=== PATIENT | male | born 1940 | race Native Hawaiian/Other Pacific Islander ===

== ENCOUNTER 2016-06-18 01:49 | Inpatient (IN) | payer MEDICARE, MEDICAID ==
[~2016-06-18] VITALS: Ht 165.1 cm; Wt 48.2 kg
[2016-06-18] VITALS (43 sets, daily range): BP systolic 91–197; BP diastolic 36–82
[~2016-06-18 01:49] MED LIST: ABIR250T PO; AMIO200T2 PO; ASPI81TA2 PO; CALC1TAB91 PO; METO50TA3 PO; NIFE60TA69 PO; PRED5TAB48 PO; SEVE800T8 PO; SIMV20TA6 PO; TEMA30CA PO; VIT1TABL46 PO
[2016-06-18] MEDS ORDERED: IV SET PRIMARY PUMP SET 1 EA INFUS.SET MC ONE ×6 (01:59→12:49)
[2016-06-18] MEDS ORDERED: NTG 50 MG/D5W250 ML BOTTL 250 ML IV ONE ×2 (01:59→02:00)
[2016-06-18 02:10] LABS: BASOPHILS % (AUTO) 0.3 % (0.0-2.0); DIFF TOTAL % 100 %; EOSINOPHILS # (AUTO) 0.1 /CMM (0.0-0.7); EOSINOPHILS % (AUTO) 0.5 % (0.0-6.0); HEMATOCRIT 28 % (39-51); LYMPHOCYTES # (AUTO) 2.7 /CMM (0.8-4.8); LYMPHOCYTES % (AUTO) 16.3 % (20.0-44.0); MEAN CORPUSCULAR HEMOGLOBIN 29 PG (26.0-33.0); MEAN CORPUSCULAR HGB CONC 32 g/dl (31.0-36.0); MEAN CORPUSCULAR VOLUME 89 fL (80-96); MONOCYTES # (AUTO) 1.8 /CMM (0.1-1.30); MONOCYTES % (AUTO) 11.2 % (2.0-12.0); NEUTROPHILS # (AUTO) 11.8 /CMM (1.8-8.9); NEUTROPHILS % (AUTO) 71.7 % (43.0-81.0); PLATELET COUNT (AUTO) 332 /CMM (150-450); RED BLOOD CELL COUNT(AUTO) 3.15 MIL/uL (4.5-6.0); WHITE BLOOD COUNT (AUTO) 16.4 K/uL (4.3-11.0)
[2016-06-18] MEDS ORDERED: CLOP75TA2 PO (02:15)
[2016-06-18] MEDS ORDERED: WARF2TAB6 PO (02:15)
[2016-06-18 02:22] LABS: ANION GAP 26 (5-14); CARBON DIOXIDE 21 mmol/L (21-32); CHLORIDE 97 mmol/L (98-107); CREATININE 4.7 mg/dL (0.6-1.3); GLUCOSE 221 mg/dL (74-106); POTASSIUM 3.5 mmol/L (3.5-5.1); SODIUM SERUM 141 mmol/L (136-145); UREA NITROGEN, BLOOD 28 mg/dL (7-18)
[2016-06-18 02:29] LABS: INR 1.08 (0.87-1.13); PROTHROMBIN TIME 11.7 SECS (9.5-12.7); TROPONIN I 0.129 ng/mL (0.00-0.056)
[2016-06-18 02:34] LABS: ALANINE AMINOTRANSFERASE 13 U/L (12-78); ASPARTATE AMINOTRANSFERASE 16 U/L (15-37); BILIRUBIN,DIRECT 0.3 mg/dL (0.0-0.2); BILIRUBIN,TOTAL 0.8 mg/dL (0.2-1.0); INDIRECT BILIRUBIN 0.5 mg/dL (0.0-1.1); TOTAL PROTEIN, SERUM 7.6 g/dL (6.4-8.2)
[2016-06-18 02:35] LABS: LACTIC ACID 11.5 mmol/L (0.4-2.0)
[2016-06-18 02:40] LABS: ABG BASE EXCESS -0.2 mmol/L; ABG HCO3 24.3 mmol/L; ABG PCO2 39.1 mmHg (35.0-45.0); ABG PH 7.412 (7.350-7.450); ABG PO2 138.5 mmHg (75.0-100.0); ABG TOTAL HEMOGLOBIN 9.3 G/dL (13.5-18.0); ALLEN TEST Pass; AaDO2 535.4 mmHg; O2Hb 96.2 % (94.0-97.0)
[2016-06-18] MEDS ORDERED: CEFTRIAXONE 1 G VIAL ONE (02:58)
[2016-06-18] MEDS ORDERED: IV D5W 50 ML IV ONE (02:59)
[2016-06-18 03:00] LABS: *LACTIC ACID REFLEX FLAG YES
[2016-06-18] MEDS ORDERED: CEFTRIAXONE 1GM BAG (ER ONLY) 1 GM/50 ML PIGGYBACK IV ONE (03:00)
[2016-06-18] MEDS ORDERED: ASPIRIN 300 MG/SUPP.RECT RC ONE ×2 (03:10→03:30)
[2016-06-18] MEDS ORDERED: ONDANSETRON HCL/PF 4 MG/2 ML VIAL ONE (04:20)
[2016-06-18] MEDS ORDERED: ONDANSETRON HCL/PF 4 MG/2 ML VIAL IV PRN (04:30)
[2016-06-18] MEDS ORDERED: DOXYCYCLINE 100 MG in IV D5W 100 ML IV SCH ×2 (06:00→17:00)
[2016-06-18] MEDS ORDERED: IV NS 0.9% 1,000 ML IV PRN (06:11)
[2016-06-18] MEDS ORDERED: VANCOMYCIN 1 GM VIAL ONE (06:29)
[2016-06-18] MEDS ORDERED: IV D5W 250 ML IV ONE (06:29)
[2016-06-18] MEDS ORDERED: ACETAMINOPHEN 650 MG/SUPP.RECT RC PRN (06:30)
[2016-06-18] MEDS ORDERED: MORPHINE SULFATE INJ 2 MG/ML DISP.SYRIN IV PRN (06:30)
[2016-06-18] MEDS ORDERED: IPRATROPIUM NEB FS 0.5 MG/2.5 ML AMPUL.NEB NEB PRN (06:30)
[2016-06-18] MEDS ORDERED: Z GUARD REMEDY 2 OZ OINT TP PRN (06:30)
[2016-06-18] MEDS ORDERED: ENOXAPARIN SODIUM 40 MG/0.4 ML DISP.SYRIN SQ SCH (06:30)
[2016-06-18] MEDS ORDERED: ONDANSETRON HCL/PF 4 MG/2 ML VIAL IVP PRN (06:30)
[2016-06-18] MEDS ORDERED: VANCOMYCIN 1 GM in IV D5W 250 ML IV SCH (06:30)
[2016-06-18] MEDS ORDERED: ALBUTEROL FS 2.5 MG/3 ML VIAL.NEB NEB PRN (07:35)
[2016-06-18] MEDS ORDERED: FEE PK DOSING 1 MIN EA MC ONE (07:59)
[2016-06-18] MEDS ORDERED: VANCOMYCIN 500 MG in IV D5W 100 ML IV PRN (08:00)
[2016-06-18] MEDS ORDERED: SECONDARY IV SET 1 EA INFUS.SET MC ONE (08:06)
[2016-06-18] MEDS ORDERED: AMIODARONE HCL 200 MG TABLET PO SCH (09:00)
[2016-06-18] MEDS: PANTOPRAZOLE 40 MG VIAL IV SCH (09:14)
[2016-06-18] MEDS: MEROPENEM 500 MG in IV NS 0.9% 50 ML IV SCH ×2 (09:14→20:21)
[2016-06-18] MEDS ORDERED: CLOPIDOGREL BISULFATE 75 MG TABLET PO SCH (09:41)
[2016-06-18] MEDS ORDERED: DEXTROSE 50%-WATER 50 ML DISP.SYRIN IV PRN (10:00)
[2016-06-18] MEDS ORDERED: *INSULIN REGULAR(HUMULIN R)HUM 100 UNIT/ML VIAL SQ PRN (10:00)
[2016-06-18] MEDS: ASPIRIN 81 MG TAB.CHEW PO SCH (10:23)
[2016-06-18] MEDS: NIFEdipine XL 60 MG TAB PO SCH ×2 (10:25→17:00)
[2016-06-18] MEDS: METOPROLOL TARTRATE 50 MG TABLET PO SCH ×2 (10:33→17:00)
[2016-06-18] MEDS: VIT B CMPLX 3/FA/VIT C/BIOTIN 1 TAB TABLET PO SCH (10:33)
[2016-06-18] MEDS: predniSONE 5 MG TABLET PO SCH ×2 (10:33→17:41)
[2016-06-18] MEDS: CALCIUM CARB 600MG /VIT D 1 EACH TABLET PO SCH ×2 (10:33→17:41)
[2016-06-18] MEDS ORDERED: AMIODARONE 150 MG in IV D5W 100 ML IV ONE (11:30)
[2016-06-18] MEDS ORDERED: AMIODARONE 900 MG in IV D5W 482 ML IV PRN (11:30)
[2016-06-18] MEDS ORDERED: HEPARIN SODIUM, PORCINE 5000 UNITS/1 ML VIAL IV ONE (12:00)
[2016-06-18] MEDS: BLOOD SUGAR DIAGNOSTIC 1 EACH STRIP VI SCH ×3 (12:27→21:58)
[2016-06-18] MEDS: INSULIN REGULAR, HUMAN 100 UNIT/ML 3 ML VIAL SQ PRN ×2 (12:31→18:07)
[2016-06-18] MEDS: HEPARIN INFUSION/D5W 500 ML IV PRN (12:51)
[2016-06-18] MEDS: SEVELAMER CARBONATE 800 MG TABLET PO SCH ×2 (13:48→17:41)
[2016-06-18 15:47] LABS: ABG BASE EXCESS 5.5 mmol/L; ABG HCO3 28.6 mmol/L; ABG PCO2 35.7 mmHg (35.0-45.0); ABG PH 7.521 (7.350-7.450); ABG PO2 63.2 mmHg (75.0-100.0); ABG TOTAL HEMOGLOBIN 8.8 G/dL (13.5-18.0); ALLEN TEST Pass; AaDO2 325.3 mmHg
[2016-06-18] MEDS: ABIRATERONE ACETATE 250 MG PO SCH (16:32)
[2016-06-18] MEDS ORDERED: WARFARIN SODIUM 2 MG TABLET PO SCH (17:00)
[2016-06-18] MEDS ORDERED: GUAIFENESIN/CODEINE 10 ML UDC PO PRN (21:00)
[2016-06-18] MEDS ORDERED: GUAIFENESIN/D-METHORPHAN HB 5 ML UDC ONE (21:27)
[2016-06-18] MEDS: TEMAZEPAM 15 MG CAPSULE PO SCH (21:37)
[2016-06-18] MEDS: GUAIFENESIN/D-METHORPHAN HB 5 ML UDC PO PRN (21:38)
[2016-06-18] MEDS: SIMVASTATIN 20 MG TABLET PO SCH (21:39)
[2016-06-19] VITALS (36 sets, daily range): BP systolic 95–122; BP diastolic 37–75
[2016-06-19] MEDS: DOXYCYCLINE 100 MG in IV D5W 100 ML IV SCH ×2 (06:11→17:37)
[2016-06-19 06:37] LABS: DIFF TOTAL % 100 %; HEMATOCRIT 30 % (39-51); HEMOGLOBIN 9.9 g/dL (13.5-17.5); LYMPHOCYTES % (AUTO) 5.8 % (20.0-44.0); MEAN CORPUSCULAR HEMOGLOBIN 29 PG (26.0-33.0); MEAN CORPUSCULAR HGB CONC 33 g/dl (31.0-36.0); MEAN CORPUSCULAR VOLUME 88 fL (80-96); MONOCYTES # (AUTO) 1.1 /CMM (0.1-1.30); MONOCYTES % (AUTO) 6.5 % (2.0-12.0); NEUTROPHILS # (AUTO) 14.9 /CMM (1.8-8.9); NEUTROPHILS % (AUTO) 87.7 % (43.0-81.0); PLATELET COUNT (AUTO) 248 /CMM (150-450)
[2016-06-19 06:47] LABS: CALCIUM, SERUM 8.1 mg/dL (8.5-10.1); PHOSPHORUS 4.2 mg/dL (2.5-4.9); POTASSIUM 4.2 mmol/L (3.5-5.1)
[2016-06-19 06:59] LABS: THYROID STIMULATING HORMONE 64.513 uIU/mL (0.358-3.74)
[2016-06-19] MEDS ORDERED: HEPARIN SODIUM, PORCINE 5000 UNITS/1 ML VIAL SQ SCH (09:00)
[2016-06-19] MEDS: METOPROLOL TARTRATE 50 MG TABLET PO SCH ×2 (09:00→17:00)
[2016-06-19] MEDS: PANTOPRAZOLE 40 MG VIAL IV SCH (09:12)
[2016-06-19] MEDS: MEROPENEM 500 MG in IV NS 0.9% 50 ML IV SCH ×2 (09:13→20:33)
[2016-06-19] MEDS: SEVELAMER CARBONATE 800 MG TABLET PO SCH ×3 (09:13→16:38)
[2016-06-19] MEDS: CALCIUM CARB 600MG /VIT D 1 EACH TABLET PO SCH ×2 (09:15→16:38)
[2016-06-19] MEDS: NIFEdipine XL 60 MG TAB PO SCH ×2 (09:16→17:00)
[2016-06-19] MEDS: predniSONE 5 MG TABLET PO SCH ×2 (09:20→16:38)
[2016-06-19] MEDS: VIT B CMPLX 3/FA/VIT C/BIOTIN 1 TAB TABLET PO SCH (09:20)
[2016-06-19] MEDS: AMIODARONE HCL 200 MG TABLET PO SCH ×2 (09:20→20:34)
[2016-06-19] MEDS: BLOOD SUGAR DIAGNOSTIC 1 EACH STRIP VI SCH ×4 (09:22→21:34)
[2016-06-19] MEDS: ASPIRIN 81 MG TAB.CHEW PO SCH (09:22)
[2016-06-19] MEDS: ABIRATERONE ACETATE 250 MG PO SCH (11:15)
[2016-06-19] MEDS: INSULIN REGULAR, HUMAN 100 UNIT/ML 3 ML VIAL SQ PRN ×3 (11:42→21:43)
[2016-06-19] MEDS: HEPARIN INFUSION/D5W 500 ML IV PRN (13:26)
[2016-06-19] MEDS: GUAIFENESIN/D-METHORPHAN HB 5 ML UDC PO PRN ×2 (15:28→23:05)
[2016-06-19] MEDS ORDERED: VANCOMYCIN 1 GM in IV D5W 250 ML IV SCH (17:00)
[2016-06-19] MEDS ORDERED: SECONDARY IV SET 1 EA INFUS.SET MC ONE (17:57)
[2016-06-19] MEDS: TEMAZEPAM 15 MG CAPSULE PO SCH (23:05)
[2016-06-19] MEDS: SIMVASTATIN 20 MG TABLET PO SCH (23:08)
[2016-06-20] VITALS (37 sets, daily range): BP systolic 84–128; BP diastolic 40–61
[2016-06-20] MEDS ORDERED: IV NS 0.9% 250 ML IV ONE (04:30)
[2016-06-20 04:40] LABS: BASOPHILS % (AUTO) 0.1 % (0.0-2.0); DIFF TOTAL % 100 %; HEMATOCRIT 29 % (39-51); HEMOGLOBIN 9.4 g/dL (13.5-17.5); LYMPHOCYTES # (AUTO) 0.7 /CMM (0.8-4.8); LYMPHOCYTES % (AUTO) 5.6 % (20.0-44.0); MEAN CORPUSCULAR HEMOGLOBIN 29 PG (26.0-33.0); MEAN CORPUSCULAR HGB CONC 33 g/dl (31.0-36.0); MEAN CORPUSCULAR VOLUME 88 fL (80-96); MONOCYTES # (AUTO) 0.8 /CMM (0.1-1.30); MONOCYTES % (AUTO) 6.7 % (2.0-12.0); NEUTROPHILS # (AUTO) 10.3 /CMM (1.8-8.9); NEUTROPHILS % (AUTO) 87.6 % (43.0-81.0); PLATELET COUNT (AUTO) 314 /CMM (150-450); RED BLOOD CELL COUNT(AUTO) 3.26 MIL/uL (4.5-6.0); WHITE BLOOD COUNT (AUTO) 11.7 K/uL (4.3-11.0)
[2016-06-20 04:53] LABS: CALCIUM, SERUM 8.1 mg/dL (8.5-10.1); CREATININE 4.6 mg/dL (0.6-1.3); POTASSIUM 3.7 mmol/L (3.5-5.1)
[2016-06-20] MEDS: DOXYCYCLINE 100 MG in IV D5W 100 ML IV SCH ×2 (05:08→17:22)
[2016-06-20] MEDS: ABIRATERONE ACETATE 250 MG PO SCH (08:06)
[2016-06-20] MEDS: MEROPENEM 500 MG in IV NS 0.9% 50 ML IV SCH ×2 (08:06→20:32)
[2016-06-20] MEDS: VIT B CMPLX 3/FA/VIT C/BIOTIN 1 TAB TABLET PO SCH (08:07)
[2016-06-20] MEDS: CALCIUM CARB 600MG /VIT D 1 EACH TABLET PO SCH ×2 (08:07→16:39)
[2016-06-20] MEDS: predniSONE 5 MG TABLET PO SCH ×2 (08:07→16:39)
[2016-06-20] MEDS: PANTOPRAZOLE 40 MG VIAL IV SCH (08:07)
[2016-06-20] MEDS: NIFEdipine XL 60 MG TAB PO SCH ×2 (08:07→16:39)
[2016-06-20] MEDS: SEVELAMER CARBONATE 800 MG TABLET PO SCH ×3 (08:07→16:39)
[2016-06-20] MEDS: ASPIRIN 81 MG TAB.CHEW PO SCH (08:07)
[2016-06-20] MEDS: AMIODARONE HCL 200 MG TABLET PO SCH ×2 (08:07→20:32)
[2016-06-20] MEDS: METOPROLOL TARTRATE 50 MG TABLET PO SCH ×2 (08:07→16:39)
[2016-06-20] MEDS: BLOOD SUGAR DIAGNOSTIC 1 EACH STRIP VI SCH ×4 (08:15→22:24)
[2016-06-20] MEDS: INSULIN REGULAR, HUMAN 100 UNIT/ML 3 ML VIAL SQ PRN ×3 (08:19→18:01)
[2016-06-20] MEDS: GUAIFENESIN/D-METHORPHAN HB 5 ML UDC PO PRN ×2 (11:11→22:13)
[2016-06-20] MEDS: HEPARIN INFUSION/D5W 500 ML IV PRN (14:09)
[2016-06-20] MEDS ORDERED: SECONDARY IV SET 1 EA INFUS.SET MC ONE (16:35)
[2016-06-20] MEDS: SIMVASTATIN 20 MG TABLET PO SCH (22:14)
[2016-06-20] MEDS: TEMAZEPAM 15 MG CAPSULE PO SCH (22:14)
[2016-06-21] VITALS (31 sets, daily range): BP systolic 86–123; BP diastolic 42–61
[2016-06-21] MEDS: GUAIFENESIN/D-METHORPHAN HB 5 ML UDC PO PRN (04:01)
[2016-06-21 04:48] LABS: BASOPHILS % (AUTO) 0.1 % (0.0-2.0); DIFF TOTAL % 100 %; HEMATOCRIT 27 % (39-51); HEMOGLOBIN 8.8 g/dL (13.5-17.5); LYMPHOCYTES # (AUTO) 0.8 /CMM (0.8-4.8); LYMPHOCYTES % (AUTO) 6.9 % (20.0-44.0); MEAN CORPUSCULAR HEMOGLOBIN 28 PG (26.0-33.0); MEAN CORPUSCULAR HGB CONC 33 g/dl (31.0-36.0); MEAN CORPUSCULAR VOLUME 87 fL (80-96); MONOCYTES % (AUTO) 9.3 % (2.0-12.0); NEUTROPHILS # (AUTO) 9.4 /CMM (1.8-8.9); NEUTROPHILS % (AUTO) 83.7 % (43.0-81.0); PLATELET COUNT (AUTO) 269 /CMM (150-450); RED BLOOD CELL COUNT(AUTO) 3.08 MIL/uL (4.5-6.0); WHITE BLOOD COUNT (AUTO) 11.3 K/uL (4.3-11.0)
[2016-06-21 05:11] LABS: CALCIUM, SERUM 7.6 mg/dL (8.5-10.1); CREATININE 6.3 mg/dL (0.6-1.3); PHOSPHORUS 4.2 mg/dL (2.5-4.9); POTASSIUM 4.1 mmol/L (3.5-5.1)
[2016-06-21] MEDS: DOXYCYCLINE 100 MG in IV D5W 100 ML IV SCH ×2 (05:12→17:10)
[2016-06-21] MEDS ORDERED: IV SET PRIMARY PUMP SET 1 EA INFUS.SET MC ONE (08:11)
[2016-06-21] MEDS: PANTOPRAZOLE 40 MG VIAL IV SCH ×2 (08:47→09:53)
[2016-06-21] MEDS: BLOOD SUGAR DIAGNOSTIC 1 EACH STRIP VI SCH ×4 (08:47→21:03)
[2016-06-21] MEDS: VIT B CMPLX 3/FA/VIT C/BIOTIN 1 TAB TABLET PO SCH (09:53)
[2016-06-21] MEDS: MEROPENEM 500 MG in IV NS 0.9% 50 ML IV SCH ×2 (09:53→21:06)
[2016-06-21] MEDS: CALCIUM CARB 600MG /VIT D 1 EACH TABLET PO SCH ×2 (09:53→17:08)
[2016-06-21] MEDS: METOPROLOL TARTRATE 50 MG TABLET PO SCH ×2 (09:53→17:09)
[2016-06-21] MEDS: ASPIRIN 81 MG TAB.CHEW PO SCH (09:53)
[2016-06-21] MEDS: AMIODARONE HCL 200 MG TABLET PO SCH ×2 (09:54→21:00)
[2016-06-21] MEDS: predniSONE 5 MG TABLET PO SCH ×2 (09:54→17:08)
[2016-06-21] MEDS: SEVELAMER CARBONATE 800 MG TABLET PO SCH ×3 (09:54→17:08)
[2016-06-21] MEDS: ABIRATERONE ACETATE 250 MG PO SCH (09:56)
[2016-06-21] MEDS: NIFEdipine XL 60 MG TAB PO SCH ×2 (09:56→17:08)
[2016-06-21] MEDS ORDERED: MENTHOL/CETYLPYRD (CEPACOL) 1 LOZ LOZENGE PO PRN (12:30)
[2016-06-21] MEDS: INSULIN REGULAR, HUMAN 100 UNIT/ML 3 ML VIAL SQ PRN ×3 (12:32→21:07)
[2016-06-21] MEDS: TEMAZEPAM 15 MG CAPSULE PO SCH (21:06)
[2016-06-21] MEDS: SIMVASTATIN 20 MG TABLET PO SCH (21:06)
[2016-06-22] VITALS (11 sets, daily range): BP systolic 77–137; BP diastolic 39–65
[2016-06-22] MEDS: DOXYCYCLINE 100 MG in IV D5W 100 ML IV SCH ×2 (06:00→17:05)
[2016-06-22] MEDS: BLOOD SUGAR DIAGNOSTIC 1 EACH STRIP VI SCH ×4 (07:30→21:47)
[2016-06-22] MEDS: AMIODARONE HCL 200 MG TABLET PO SCH ×3 (09:00→12:53)
[2016-06-22] MEDS: predniSONE 5 MG TABLET PO SCH ×2 (09:00→16:51)
[2016-06-22] MEDS: MEROPENEM 500 MG in IV NS 0.9% 50 ML IV SCH (09:00)
[2016-06-22] MEDS: ASPIRIN 81 MG TAB.CHEW PO SCH ×2 (09:00→12:47)
[2016-06-22] MEDS: CALCIUM CARB 600MG /VIT D 1 EACH TABLET PO SCH ×3 (09:00→16:51)
[2016-06-22] MEDS: SEVELAMER CARBONATE 800 MG TABLET PO SCH ×3 (09:00→16:51)
[2016-06-22] MEDS: VIT B CMPLX 3/FA/VIT C/BIOTIN 1 TAB TABLET PO SCH ×2 (09:00→12:46)
[2016-06-22] MEDS: NIFEdipine XL 60 MG TAB PO SCH ×2 (09:00→12:47)
[2016-06-22] MEDS: ABIRATERONE ACETATE 250 MG PO SCH ×2 (09:00→12:46)
[2016-06-22] MEDS: METOPROLOL TARTRATE 50 MG TABLET PO SCH ×3 (09:00→16:51)
[2016-06-22] MEDS: INSULIN REGULAR, HUMAN 100 UNIT/ML 3 ML VIAL SQ PRN (12:42)
[2016-06-22 15:05] LABS: BASOPHILS % (AUTO) 0.4 % (0.0-2.0); DIFF TOTAL % 100 %; HEMATOCRIT 28 % (39-51); LYMPHOCYTES % (AUTO) 10.6 % (20.0-44.0); MEAN CORPUSCULAR HEMOGLOBIN 29 PG (26.0-33.0); MEAN CORPUSCULAR HGB CONC 32 g/dl (31.0-36.0); MEAN CORPUSCULAR VOLUME 88 fL (80-96); MONOCYTES # (AUTO) 1.1 /CMM (0.1-1.30); MONOCYTES % (AUTO) 11.7 % (2.0-12.0); NEUTROPHILS % (AUTO) 77.3 % (43.0-81.0); PLATELET COUNT (AUTO) 197 /CMM (150-450); RED BLOOD CELL COUNT(AUTO) 3.17 MIL/uL (4.5-6.0); WHITE BLOOD COUNT (AUTO) 9.1 K/uL (4.3-11.0)
[2016-06-22 15:19] LABS: CALCIUM, SERUM 7.2 mg/dL (8.5-10.1); CREATININE 5.9 mg/dL (0.6-1.3); PHOSPHORUS 4.5 mg/dL (2.5-4.9); POTASSIUM 4.1 mmol/L (3.5-5.1)
[2016-06-22] MEDS ORDERED: IV SET PRIMARY PUMP SET 1 EA INFUS.SET MC ONE ×2 (16:56→21:41)
[2016-06-22] MEDS ORDERED: MEROPENEM 500 MG in IV NS 0.9% 50 ML IV SCH (21:00)
[2016-06-22] MEDS: CARVEDILOL 6.25 MG TABLET PO SCH (21:00)
[2016-06-22] MEDS ORDERED: IV NS 0.9% 250 ML IV ONE (21:41)
[2016-06-22] MEDS ORDERED: SECONDARY IV SET 1 EA INFUS.SET MC ONE (21:41)
[2016-06-22] MEDS: SIMVASTATIN 20 MG TABLET PO SCH (21:47)
[2016-06-22] MEDS ORDERED: TEMAZEPAM 15 MG CAPSULE PO PRN (23:30)
[2016-06-23] MEDS ORDERED: TEMAZEPAM 15 MG CAPSULE PO SCH
[2016-06-23 00:40] VITALS: BP 97/49
[2016-06-23 04:00] VITALS: BP 96/46
[2016-06-23 04:11] VITALS: BP 90/55
[2016-06-23] MEDS: DOXYCYCLINE 100 MG in IV D5W 100 ML IV SCH (05:34)
[2016-06-23] MEDS: BLOOD SUGAR DIAGNOSTIC 1 EACH STRIP VI SCH ×3 (06:27→16:52)
[2016-06-23] MEDS: INSULIN REGULAR, HUMAN 100 UNIT/ML 3 ML VIAL SQ PRN ×2 (06:28→12:06)
[2016-06-23 06:47] VITALS: BP 110/49
[2016-06-23 08:00] VITALS: BP_SYST 107; BP_SYST 110; BP_DIAS 49; BP_DIAS 73
[2016-06-23] MEDS: ABIRATERONE ACETATE 250 MG PO SCH (08:25)
[2016-06-23] MEDS: SEVELAMER CARBONATE 800 MG TABLET PO SCH ×3 (08:25→18:25)
[2016-06-23] MEDS: CALCIUM CARB 600MG /VIT D 1 EACH TABLET PO SCH ×2 (08:25→18:24)
[2016-06-23] MEDS: VIT B CMPLX 3/FA/VIT C/BIOTIN 1 TAB TABLET PO SCH (08:25)
[2016-06-23] MEDS: predniSONE 5 MG TABLET PO SCH ×2 (08:25→18:24)
[2016-06-23] MEDS: PANTOPRAZOLE 40 MG VIAL IV SCH (08:26)
[2016-06-23] MEDS: ASPIRIN 81 MG TAB.CHEW PO SCH (08:26)
[2016-06-23] MEDS: AMIODARONE HCL 200 MG TABLET PO SCH (09:00)
[2016-06-23] MEDS ORDERED: LISINOPRIL (5MG) 5 MG TABLET PO SCH (09:00)
[2016-06-23] MEDS: CARVEDILOL 6.25 MG TABLET PO SCH (09:00)
[2016-06-23] MEDS ORDERED: DOXY100C41 PO (14:16)
[2016-06-23 16:00] VITALS: BP 127/66
[2016-06-23] MEDS ORDERED: DOXYCYCLINE HYCLATE (100 MG) 100 MG TABLET PO SCH (18:00)
[2016-06-23] MEDS ORDERED: CARVEDILOL 6.25 MG TABLET PO SCH (21:00)
[2016-06-24] MEDS ORDERED: LISINOPRIL (5MG) 5 MG TABLET PO SCH (09:00)
== END 2016-06-23 20:00 | disposition home or self-care (01) | DRG 871 ==
LOC: ER 01:50 → ICU 03:26 → TELE 06-21 23:50 → MED 06-23 09:58
PROVIDERS: ATTEND Family Medicine
PROC: 5A09357 Assistance with Respiratory Ventilation, Less than 24 Consecutive Hours, Continuous Positive Airway Pressure (ICD-10-PCS; principal; 2016-06-18)
PROC: 5A1D60Z (ICD-10-PCS; 2016-06-19)
DX: A41.9 Sepsis, unspecified organism (principal); J15.9 Unspecified bacterial pneumonia; I21.4 Non-ST elevation (NSTEMI) myocardial infarction; N18.6 End stage renal disease; J96.01 Acute respiratory failure with hypoxia; I50.23 Acute on chronic systolic (congestive) heart failure; I13.2 Hypertensive heart and chronic kidney disease with heart failure and with stage 5 chronic kidney disease, or end stage renal disease; E87.2 Acidosis; E44.1 Mild protein-calorie malnutrition; I16.1 Hypertensive emergency; J98.11 Atelectasis; Z99.2 Dependence on renal dialysis; E11.22 Type 2 diabetes mellitus with diabetic chronic kidney disease; I25.10 Atherosclerotic heart disease of native coronary artery without angina pectoris; E78.5 Hyperlipidemia, unspecified; N40.0 Benign prostatic hyperplasia without lower urinary tract symptoms; Z87.891 Personal history of nicotine dependence; Z95.5 Presence of coronary angioplasty implant and graft; D63.8 Anemia in other chronic diseases classified elsewhere; Z85.46 Personal history of malignant neoplasm of prostate; I07.1 Rheumatic tricuspid insufficiency; I25.2 Old myocardial infarction; I27.2 Other secondary pulmonary hypertension; I48.0 Paroxysmal atrial fibrillation; Z86.73 Personal history of transient ischemic attack (TIA), and cerebral infarction without residual deficits; Z90.79 Acquired absence of other genital organ(s)
CPT/HCPCS: 36415; 36600; 71010-TC; 80048-TC; 80061-TC; 80076-TC; 80202-TC; 82962-TC; 83605-TC; 83735-TC; 83880; 84100-TC; 84443-TC; 84484-TC; 85025-TC; 85730-TC; 87040-TC; 87081-TC; 87400; 90935-TC; 93307-TC; 94660; 94760-TC; 94799-TC; A4216; A4606; A6402; C9113; J0282; J0696; J1644; J1815; J2185; J2405; J3370; J3490; J7030; J7050; J7060; J7512; Z7610

== ENCOUNTER 2016-08-12 15:22 | Inpatient (IN) | payer MEDICARE, MEDICAID ==
[~2016-08-12] VITALS: Ht 165.1 cm; Wt 50.4 kg
[~2016-08-12 15:22] MED LIST changes: +CLOP75TA2 PO; +DOXY100C41 PO; +WARF2TAB6 PO
[2016-08-12 16:04] LABS: BASOPHILS # (AUTO) 0.1 /CMM (0.0-0.2); BASOPHILS % (AUTO) 0.7 % (0.0-2.0); EOSINOPHILS % (AUTO) 0.6 % (0.0-6.0); HEMATOCRIT 27 % (39-51); HEMOGLOBIN 8.5 g/dL (13.5-17.5); LYMPHOCYTES # (AUTO) 1.2 /CMM (0.8-4.8); LYMPHOCYTES % (AUTO) 16.3 % (20.0-44.0); MEAN CORPUSCULAR HEMOGLOBIN 29 PG (26.0-33.0); MEAN CORPUSCULAR HGB CONC 31 g/dl (31.0-36.0); MEAN CORPUSCULAR VOLUME 93 fL (80-96); MONOCYTES # (AUTO) 0.7 /CMM (0.1-1.30); MONOCYTES % (AUTO) 9.7 % (2.0-12.0); NEUTROPHILS # (AUTO) 5.4 /CMM (1.8-8.9); NEUTROPHILS % (AUTO) 72.7 % (43.0-81.0); PLATELET COUNT (AUTO) 340 /CMM (150-450); RED BLOOD CELL COUNT(AUTO) 2.92 MIL/uL (4.5-6.0); WHITE BLOOD COUNT (AUTO) 7.4 K/uL (4.3-11.0)
[2016-08-12 16:17] LABS: CALCIUM, SERUM 9.7 mg/dL (8.5-10.1); CREATININE 6.5 mg/dL (0.6-1.3); POTASSIUM 4.3 mmol/L (3.5-5.1)
[2016-08-12 16:21] LABS: INR 0.92 (0.87-1.13); PROTHROMBIN TIME 9.6 SECS (9.5-12.7)
[2016-08-12] MEDS ORDERED: PRED5TAB PO (16:22)
[2016-08-12] MEDS ORDERED: NIFE20CA PO (16:22)
[2016-08-12 16:23] LABS: ALBUMIN 3.1 g/dL (3.4-5.0); BILIRUBIN,DIRECT 0.1 mg/dL (0.0-0.2); BILIRUBIN,TOTAL 0.3 mg/dL (0.2-1.0)
[2016-08-12] MEDS ORDERED: MIRT15TA PO (16:23)
[2016-08-12] MEDS ORDERED: IV SET PRIMARY PUMP SET 1 EA INFUS.SET MC ONE (17:22)
[2016-08-12] MEDS ORDERED: PANTOPRAZOLE 80 MG in IV NS 0.9% 500 ML IV ONE (17:30)
[2016-08-12] MEDS ORDERED: PANTOPRAZOLE 40 MG VIAL ONE (17:33)
[2016-08-12 17:48] LABS: BASOPHILS % (AUTO) 0.3 % (0.0-2.0); EOSINOPHILS % (AUTO) 0.5 % (0.0-6.0); HEMATOCRIT 26 % (39-51); HEMOGLOBIN 8.3 g/dL (13.5-17.5); MEAN CORPUSCULAR HEMOGLOBIN 30 PG (26.0-33.0); MEAN CORPUSCULAR HGB CONC 32 g/dl (31.0-36.0); MEAN CORPUSCULAR VOLUME 93 fL (80-96); MONOCYTES # (AUTO) 0.7 /CMM (0.1-1.30); MONOCYTES % (AUTO) 10.2 % (2.0-12.0); NEUTROPHILS # (AUTO) 5.4 /CMM (1.8-8.9); PLATELET COUNT (AUTO) 290 /CMM (150-450); RDW COEFFICIENT OF VARIATION 16.6 (11.5-15.0); WHITE BLOOD COUNT (AUTO) 7.1 K/uL (4.3-11.0)
[2016-08-12] MEDS ORDERED: PANTOPRAZOLE 40 MG VIAL IV ONE (18:00)
[2016-08-12 20:00] VITALS: BP 138/60
[2016-08-12] MEDS ORDERED: TEMAZEPAM 15 MG CAPSULE PO PRN (20:30)
[2016-08-12] MEDS ORDERED: ZYTIGA 250 MG XX SCH (20:30)
[2016-08-12] MEDS ORDERED: BLOOD IV SET 1 EA INFUS.SET MC ONE (20:36)
[2016-08-12] MEDS ORDERED: IV NS 0.9% 250 ML IV ONE (20:36)
[2016-08-12] MEDS ORDERED: SIMVASTATIN 20 MG TABLET PO SCH (22:00)
[2016-08-12] MEDS ORDERED: MIRTAZAPINE 15 MG TABLET PO SCH (22:00)
[2016-08-13 06:35] LABS: BASOPHILS % (AUTO) 0.6 % (0.0-2.0); EOSINOPHILS # (AUTO) 0.1 /CMM (0.0-0.7); EOSINOPHILS % (AUTO) 1.7 % (0.0-6.0); HEMATOCRIT 24 % (39-51); HEMOGLOBIN 7.8 g/dL (13.5-17.5); LYMPHOCYTES # (AUTO) 1.3 /CMM (0.8-4.8); LYMPHOCYTES % (AUTO) 24.1 % (20.0-44.0); MEAN CORPUSCULAR HEMOGLOBIN 30 PG (26.0-33.0); MEAN CORPUSCULAR HGB CONC 32 g/dl (31.0-36.0); MEAN CORPUSCULAR VOLUME 93 fL (80-96); MONOCYTES # (AUTO) 0.7 /CMM (0.1-1.30); MONOCYTES % (AUTO) 13.4 % (2.0-12.0); NEUTROPHILS # (AUTO) 3.4 /CMM (1.8-8.9); NEUTROPHILS % (AUTO) 60.2 % (43.0-81.0); PLATELET COUNT (AUTO) 253 /CMM (150-450); RDW COEFFICIENT OF VARIATION 17.9 (11.5-15.0); RED BLOOD CELL COUNT(AUTO) 2.62 MIL/uL (4.5-6.0); WHITE BLOOD COUNT (AUTO) 5.6 K/uL (4.3-11.0)
[2016-08-13 06:40] LABS: CALCIUM, SERUM 8.7 mg/dL (8.5-10.1); POTASSIUM 4.1 mmol/L (3.5-5.1)
[2016-08-13 08:00] VITALS: BP 131/71
[2016-08-13] MEDS ORDERED: predniSONE 5 MG TABLET PO SCH (09:00)
[2016-08-13] MEDS ORDERED: METOPROLOL TARTRATE 50 MG TABLET PO SCH (09:00)
[2016-08-13] MEDS ORDERED: PANTOPRAZOLE 40 MG VIAL IV SCH ×2 (09:00)
[2016-08-13] MEDS ORDERED: VIT B CMPLX 3/FA/VIT C/BIOTIN 1 TAB TABLET PO SCH (09:00)
[2016-08-13] MEDS ORDERED: CALCIUM CARB 600MG /VIT D 1 EACH TABLET PO SCH (09:00)
[2016-08-13] MEDS ORDERED: NIFEdipine (10MG) 10 MG CAPSULE PO SCH (09:00)
[2016-08-13] MEDS ORDERED: ASPIRIN 81 MG TAB.CHEW PO SCH (09:00)
[2016-08-13 09:01] VITALS: BP 131/71
== END 2016-08-13 15:50 | disposition home or self-care (01) | DRG 377 ==
LOC: ER 15:29 → TELE 18:04 → MED 08-13 02:41
PROVIDERS: ADMIT Internal Medicine Nephrology; ATTEND Internal Medicine Nephrology
DX: K57.91 Diverticulosis of intestine, part unspecified, without perforation or abscess with bleeding (principal); N18.6 End stage renal disease; I13.2 Hypertensive heart and chronic kidney disease with heart failure and with stage 5 chronic kidney disease, or end stage renal disease; E11.22 Type 2 diabetes mellitus with diabetic chronic kidney disease; D64.9 Anemia, unspecified; Z98.61 Coronary angioplasty status; I25.10 Atherosclerotic heart disease of native coronary artery without angina pectoris; I25.2 Old myocardial infarction; Z99.2 Dependence on renal dialysis; Z85.46 Personal history of malignant neoplasm of prostate; K64.9 Unspecified hemorrhoids; I50.9 Heart failure, unspecified
CPT/HCPCS: 36415; 80048-TC; 80076-TC; 83690-TC; 85025-TC; 85730-TC; 86850-TC; 86921-TC; 87081-TC; A4606; C9113; J7040; J7050; J7512; Z7610

== ENCOUNTER 2016-10-15 21:11 | Inpatient (IN) | payer MEDICARE, MEDICAID ==
[~2016-10-15] VITALS: Ht 165.1 cm; Wt 52.6 kg
[~2016-10-15 21:11] MED LIST changes: -AMIO200T2 PO; -CLOP75TA2 PO; -DOXY100C41 PO; +MIRT15TA PO; +NIFE20CA PO; -NIFE60TA69 PO; +PRED5TAB PO; -PRED5TAB48 PO; -SEVE800T8 PO; -WARF2TAB6 PO
[2016-10-15] MEDS ORDERED: IV NS 0.9% 500 ML BAG IV ONE (22:30)
[2016-10-15] MEDS ORDERED: ACETAMINOPHEN 325 MG TABLET PO ONE (22:30)
[2016-10-15] MEDS ORDERED: ACETAMINOPHEN ES 500 MG TABLET ONE (22:38)
[2016-10-15] MEDS ORDERED: IV SET PRIMARY 1 EA INFUS.SET MC ONE (22:38)
[2016-10-15] MEDS ORDERED: IV NS 0.9% 500 ML IV ONE (22:38)
[2016-10-15 22:41] LABS: BASOPHILS % (AUTO) 0.2 % (0.0-2.0); EOSINOPHILS # (AUTO) 0.1 /CMM (0.0-0.7); EOSINOPHILS % (AUTO) 0.4 % (0.0-6.0); HEMATOCRIT 33 % (39-51); HEMOGLOBIN 10.8 g/dL (13.5-17.5); LYMPHOCYTES # (AUTO) 1.6 /CMM (0.8-4.8); LYMPHOCYTES % (AUTO) 11.3 % (20.0-44.0); MEAN CORPUSCULAR HEMOGLOBIN 26 PG (26.0-33.0); MEAN CORPUSCULAR HGB CONC 33 g/dl (31.0-36.0); MEAN CORPUSCULAR VOLUME 81 fL (80-96); MONOCYTES # (AUTO) 1.8 /CMM (0.1-1.30); MONOCYTES % (AUTO) 13.1 % (2.0-12.0); NEUTROPHILS # (AUTO) 10.3 /CMM (1.8-8.9); PLATELET COUNT (AUTO) 156 /CMM (150-450); RDW COEFFICIENT OF VARIATION 18.9 (11.5-15.0); WHITE BLOOD COUNT (AUTO) 13.7 K/uL (4.3-11.0)
[2016-10-15 22:53] LABS: INR 1.05 (0.87-1.13); PROTHROMBIN TIME 11.3 SECS (9.5-12.7)
[2016-10-15 22:59] LABS: TROPONIN I 0.383 ng/mL (0.00-0.056)
[2016-10-15 23:04] LABS: ALANINE AMINOTRANSFERASE 13 U/L (12-78); ALBUMIN 2.6 g/dL (3.4-5.0); ALKALINE PHOSPHATASE 36 U/L (46-116); ASPARTATE AMINOTRANSFERASE 37 U/L (15-37); BILIRUBIN,DIRECT 0.2 mg/dL (0.0-0.2); BILIRUBIN,TOTAL 0.5 mg/dL (0.2-1.0); CALCIUM, SERUM 8.4 mg/dL (8.5-10.1); CARBON DIOXIDE 24 mmol/L (21-32); CHLORIDE 97 mmol/L (98-107); GLUCOSE 97 mg/dL (74-106); POTASSIUM 5.2 mmol/L (3.5-5.1); SODIUM SERUM 136 mmol/L (136-145); TOTAL PROTEIN, SERUM 6.1 g/dL (6.4-8.2)
[2016-10-15 23:06] LABS: CREATININE 9.8 mg/dL (0.6-1.3); UREA NITROGEN, BLOOD 107 mg/dL (7-18)
[2016-10-15] MEDS ORDERED: hydrALAZINE HCL IV 20 MG VIAL ONE (23:10)
[2016-10-15] MEDS ORDERED: ASPIRIN 325 MG TABLET ONE (23:14)
[2016-10-15] MEDS ORDERED: ASPIRIN 325 MG TABLET PO ONE (23:30)
[2016-10-15] MEDS ORDERED: hydrALAZINE HCL IV 20 MG VIAL IV ONE (23:30)
[2016-10-15 23:33] LABS: B-TYPE NATRIURETIC PEPTIDE 96806 PG/ML (0-125)
[2016-10-16] VITALS (48 sets, daily range): BP systolic 106–170; BP diastolic 49–100
[2016-10-16] MEDS ORDERED: IV D5W 0 ML IV ONE
[2016-10-16] MEDS ORDERED: PIPERACILLIN /TAZOBACTAM 3.375 G in IV D5W 50 ML IV ONE ×2
[2016-10-16] MEDS ORDERED: PIPERACILLIN /TAZOBACTAM 2.25 G VIAL IV ONE
[2016-10-16] MEDS ORDERED: IV D5W 50 ML IV ONE (00:02)
[2016-10-16] MEDS ORDERED: AMIODARONE 150 MG/3 ML VIAL IV ONE ×4 (00:10→00:30)
[2016-10-16] MEDS ORDERED: IV D5W 500 ML IV ONE (00:11)
[2016-10-16] MEDS ORDERED: IV D5W 100 ML IV ONE (00:11)
[2016-10-16] MEDS ORDERED: IV SET PRIMARY PUMP SET 1 EA INFUS.SET MC ONE ×3 (00:11→10:33)
[2016-10-16] MEDS ORDERED: IV SET PRIMARY 1 EA INFUS.SET MC ONE (00:25)
[2016-10-16] MEDS ORDERED: IV NS 0.9% 1,000 ML ONE (00:25)
[2016-10-16] MEDS ORDERED: HYDROCODONE/APAP 5/325MG 1 EACH TABLET PO PRN (00:30)
[2016-10-16] MEDS ORDERED: PIPERACILLIN /TAZOBACTAM 2.25 G in IV D5W 50 ML IV ONE (00:30)
[2016-10-16] MEDS ORDERED: ONDANSETRON HCL/PF 4 MG/2 ML VIAL IVP PRN (00:30)
[2016-10-16] MEDS ORDERED: hydrALAZINE HCL IV 20 MG VIAL IV PRN (00:30)
[2016-10-16] MEDS ORDERED: ACETAMINOPHEN 325 MG TABLET PO PRN (00:30)
[2016-10-16] MEDS ORDERED: MAG HYDROX/AL HYDROX/SIMETH 30 ML UDC PO PRN (00:30)
[2016-10-16] MEDS ORDERED: IV NS 0.9% 1,000 ML BAG IV ONE (00:30)
[2016-10-16] MEDS ORDERED: MAGNESIUM HYDROXIDE 30 ML UDC PO PRN (00:30)
[2016-10-16] MEDS ORDERED: MORPHINE SULFATE INJ 2 MG/ML DISP.SYRIN IV PRN (00:30)
[2016-10-16] MEDS ORDERED: Z GUARD REMEDY 2 OZ OINT TP PRN (00:30)
[2016-10-16] MEDS ORDERED: GLIM1TAB2 PO (00:56)
[2016-10-16] MEDS ORDERED: RENVELA-SEVELAMER PO (00:56)
[2016-10-16] MEDS ORDERED: AMIODARONE 900 MG in IV D5W 482 ML IV PRN (02:00)
[2016-10-16 06:38] LABS: CALCIUM, SERUM 8.3 mg/dL (8.5-10.1); CARBON DIOXIDE 19 mmol/L (21-32); CHLORIDE 97 mmol/L (98-107); GLUCOSE 119 mg/dL (74-106); POTASSIUM 5.6 mmol/L (3.5-5.1); SODIUM SERUM 135 mmol/L (136-145)
[2016-10-16 06:41] LABS: UREA NITROGEN, BLOOD 104 mg/dL (7-18)
[2016-10-16 06:42] LABS: CREATININE 9.5 mg/dL (0.6-1.3)
[2016-10-16] MEDS ORDERED: ZYTIGA 250 MG PO SCH (07:30)
[2016-10-16] MEDS: predniSONE 5 MG TABLET PO SCH ×2 (08:42→16:06)
[2016-10-16] MEDS: PANTOPRAZOLE 40 MG TABLET.DR PO SCH (08:42)
[2016-10-16] MEDS: NIFEdipine XL (30MG) 30 MG TAB PO SCH ×2 (08:43→21:08)
[2016-10-16] MEDS ORDERED: PIPERACILLIN /TAZOBACTAM 3.375 G in IV D5W 50 ML IV SCH (09:00)
[2016-10-16] MEDS ORDERED: METOPROLOL TARTRATE 50 MG TABLET PO SCH (09:00)
[2016-10-16] MEDS: PIPERACILLIN /TAZOBACTAM 2.25 G in IV D5W 50 ML IV SCH ×3 (10:39→21:06)
[2016-10-16] MEDS ORDERED: DIGOXIN INJ 0.5 MG/2 ML AMPUL IV STA (12:30)
[2016-10-16] MEDS ORDERED: FENTANYL PF 100MCG/2ML AMPUL ONE (13:01)
[2016-10-16] MEDS ORDERED: ATRACURIUM 100MG/10 ML MDV IV ONE (13:01)
[2016-10-16] MEDS ORDERED: HYDROCORTISONE SOD SUCCINATE 100 MG/2 ML VIAL ONE (13:03)
[2016-10-16 13:15] LABS: RETICULOCYTE COUNT 0.2 % (0.6-2.5)
[2016-10-16 13:41] LABS: IRON, SERUM 34 ug/dl (50-175); TOTAL IRON BINDING CAPACITY 151 ug/dl (250-450)
[2016-10-16 14:03] LABS: THYROID STIMULATING HORMONE 26.034 uIU/mL (0.358-3.74); URIC ACID 3.2 mg/dL (2.6-7.2)
[2016-10-16] MEDS ORDERED: LABETALOL HCL IV 100MG VIAL ONE (14:49)
[2016-10-16] MEDS ORDERED: hydrALAZINE HCL IV 20 MG VIAL ONE (14:54)
[2016-10-16 16:10] LABS: FREE PSA 36.56 ng/mL (0.00-45)
[2016-10-16 16:11] LABS: PROSTATE SPECIFIC ANTIGEN SCR 152.72 ng/mL (0.00-4.00)
[2016-10-16] MEDS ORDERED: DIGOXIN INJ 0.5 MG/2 ML AMPUL IV SCH (18:00)
[2016-10-16] MEDS: METOPROLOL TARTRATE 50 MG TABLET PO SCH (21:07)
[2016-10-16] MEDS: SIMVASTATIN 20 MG TABLET PO SCH (21:07)
[2016-10-17] VITALS (26 sets, daily range): BP systolic 105–162; BP diastolic 49–80
[2016-10-17] MEDS: TEMAZEPAM 15 MG CAPSULE PO PRN ×2 (00:01→22:53)
[2016-10-17 05:29] LABS: HEMATOCRIT 31 % (39-51); HEMOGLOBIN 10.3 g/dL (13.5-17.5); LYMPHOCYTES # (AUTO) 0.3 /CMM (0.8-4.8); LYMPHOCYTES % (AUTO) 3.3 % (20.0-44.0); MEAN CORPUSCULAR HEMOGLOBIN 27 PG (26.0-33.0); MEAN CORPUSCULAR HGB CONC 33 g/dl (31.0-36.0); MEAN CORPUSCULAR VOLUME 83 fL (80-96); MONOCYTES # (AUTO) 0.6 /CMM (0.1-1.30); MONOCYTES % (AUTO) 5.7 % (2.0-12.0); NEUTROPHILS # (AUTO) 8.9 /CMM (1.8-8.9); PLATELET COUNT (AUTO) 144 /CMM (150-450); RDW COEFFICIENT OF VARIATION 19.6 (11.5-15.0); RED BLOOD CELL COUNT(AUTO) 3.78 MIL/uL (4.5-6.0); WHITE BLOOD COUNT (AUTO) 9.8 K/uL (4.3-11.0)
[2016-10-17 05:39] LABS: CALCIUM, SERUM 8.8 mg/dL (8.5-10.1); CARBON DIOXIDE 24 mmol/L (21-32); CHLORIDE 94 mmol/L (98-107); CREATININE 6.9 mg/dL (0.6-1.3); GLUCOSE 231 mg/dL (74-106); MAGNESIUM 2.3 mg/dL (1.8-2.4); POTASSIUM 5.8 mmol/L (3.5-5.1); SODIUM SERUM 132 mmol/L (136-145); UREA NITROGEN, BLOOD 62 mg/dL (7-18)
[2016-10-17] MEDS: PIPERACILLIN /TAZOBACTAM 2.25 G in IV D5W 50 ML IV SCH ×3 (06:06→21:19)
[2016-10-17 06:14] LABS: PHOSPHORUS 9.8 mg/dL (2.5-4.9)
[2016-10-17 07:44] LABS: LYMPHOCYTES % (MANUAL) 5 % (16-48); MONOCYTES % (MANUAL) 4 % (0-11.0); NEUTROPHILS % (MANUAL) 89 (42-76)
[2016-10-17] MEDS: ZYTIGA 250 MG PO SCH (07:53)
[2016-10-17] MEDS: PANTOPRAZOLE 40 MG TABLET.DR PO SCH (07:53)
[2016-10-17] MEDS: METOPROLOL TARTRATE 50 MG TABLET PO SCH ×2 (08:03→21:20)
[2016-10-17] MEDS: NIFEdipine XL (30MG) 30 MG TAB PO SCH ×2 (08:04→21:20)
[2016-10-17] MEDS: predniSONE 5 MG TABLET PO SCH ×2 (08:04→17:43)
[2016-10-17] MEDS: AMIODARONE HCL 200 MG TABLET PO SCH ×2 (11:45→21:21)
[2016-10-17] MEDS: SEVELAMER CARBONATE 800 MG TABLET PO SCH ×2 (12:56→17:43)
[2016-10-17] MEDS: SIMVASTATIN 20 MG TABLET PO SCH (21:20)
[2016-10-18] VITALS (12 sets, daily range): BP systolic 110–125; BP diastolic 43–63
[2016-10-18 05:03] LABS: HEMATOCRIT 32 % (39-51); HEMOGLOBIN 10.5 g/dL (13.5-17.5); LYMPHOCYTES # (AUTO) 0.3 /CMM (0.8-4.8); LYMPHOCYTES % (AUTO) 3.5 % (20.0-44.0); MEAN CORPUSCULAR HEMOGLOBIN 27 PG (26.0-33.0); MEAN CORPUSCULAR HGB CONC 33 g/dl (31.0-36.0); MEAN CORPUSCULAR VOLUME 82 fL (80-96); MONOCYTES # (AUTO) 0.5 /CMM (0.1-1.30); MONOCYTES % (AUTO) 5.7 % (2.0-12.0); NEUTROPHILS # (AUTO) 8.2 /CMM (1.8-8.9); NEUTROPHILS % (AUTO) 90.8 % (43.0-81.0); PLATELET COUNT (AUTO) 174 /CMM (150-450); RDW COEFFICIENT OF VARIATION 19.1 (11.5-15.0); RED BLOOD CELL COUNT(AUTO) 3.87 MIL/uL (4.5-6.0); WHITE BLOOD COUNT (AUTO) 9.1 K/uL (4.3-11.0)
[2016-10-18] MEDS: PIPERACILLIN /TAZOBACTAM 2.25 G in IV D5W 50 ML IV SCH ×3 (05:05→20:47)
[2016-10-18 05:26] LABS: ALANINE AMINOTRANSFERASE 15 U/L (12-78); ALBUMIN 2.4 g/dL (3.4-5.0); ALKALINE PHOSPHATASE 27 U/L (46-116); ASPARTATE AMINOTRANSFERASE 21 U/L (15-37); BILIRUBIN,TOTAL 0.4 mg/dL (0.2-1.0); CALCIUM, SERUM 8.8 mg/dL (8.5-10.1); CARBON DIOXIDE 31 mmol/L (21-32); CHLORIDE 98 mmol/L (98-107); CREATININE 6.1 mg/dL (0.6-1.3); GLUCOSE 182 mg/dL (74-106); MAGNESIUM 2.5 mg/dL (1.8-2.4); PHOSPHORUS 7.8 mg/dL (2.5-4.9); POTASSIUM 5.4 mmol/L (3.5-5.1); SODIUM SERUM 137 mmol/L (136-145); TOTAL PROTEIN, SERUM 6.6 g/dL (6.4-8.2); UREA NITROGEN, BLOOD 55 mg/dL (7-18)
[2016-10-18 06:02] LABS: EOSINOPHILS % (MANUAL) 1 % (0-4); LYMPHOCYTES % (MANUAL) 1 % (16-48); MONOCYTES % (MANUAL) 6 % (0-11.0); NEUTROPHILS % (MANUAL) 92 (42-76)
[2016-10-18] MEDS ORDERED: CT SWABBABLE VALVE TRANS SET 1 EA INFUS.SET MC ONE (08:42)
[2016-10-18] MEDS ORDERED: IOHEXOL-300 100 ML VIAL IV ONE (08:42)
[2016-10-18] MEDS ORDERED: IV NS 0.9% 250 ML IV ONE ×2 (08:42→13:07)
[2016-10-18] MEDS: PANTOPRAZOLE 40 MG TABLET.DR PO SCH (09:30)
[2016-10-18] MEDS: NIFEdipine XL (30MG) 30 MG TAB PO SCH ×2 (09:30→21:03)
[2016-10-18] MEDS: ZYTIGA 250 MG PO SCH (09:30)
[2016-10-18] MEDS: AMIODARONE HCL 200 MG TABLET PO SCH ×2 (09:31→21:00)
[2016-10-18] MEDS: predniSONE 5 MG TABLET PO SCH ×2 (09:32→18:03)
[2016-10-18] MEDS: METOPROLOL TARTRATE 50 MG TABLET PO SCH ×2 (09:32→21:00)
[2016-10-18] MEDS: SEVELAMER CARBONATE 800 MG TABLET PO SCH ×3 (09:32→18:03)
[2016-10-18] MEDS ORDERED: SECONDARY IV SET 1 EA INFUS.SET MC ONE (13:07)
[2016-10-18] MEDS ORDERED: IV SET PRIMARY PUMP SET 1 EA INFUS.SET MC ONE (13:07)
[2016-10-18] MEDS: SIMVASTATIN 20 MG TABLET PO SCH (21:02)
[2016-10-19] VITALS (7 sets, daily range): BP systolic 129–182; BP diastolic 40–63
[2016-10-19 03:08] LABS: CARCINOEMBRYONIC AG (CEA) 5.9 ng/mL (0.0-4.7)
[2016-10-19] MEDS: PIPERACILLIN /TAZOBACTAM 2.25 G in IV D5W 50 ML IV SCH ×3 (05:02→20:49)
[2016-10-19 06:54] LABS: BASOPHILS % (AUTO) 0.1 % (0.0-2.0); EOSINOPHILS % (AUTO) 0.1 % (0.0-6.0); HEMATOCRIT 29 % (39-51); HEMOGLOBIN 9.7 g/dL (13.5-17.5); LYMPHOCYTES # (AUTO) 0.4 /CMM (0.8-4.8); LYMPHOCYTES % (AUTO) 5.1 % (20.0-44.0); MEAN CORPUSCULAR HEMOGLOBIN 28 PG (26.0-33.0); MEAN CORPUSCULAR HGB CONC 34 g/dl (31.0-36.0); MEAN CORPUSCULAR VOLUME 82 fL (80-96); MONOCYTES # (AUTO) 0.5 /CMM (0.1-1.30); NEUTROPHILS % (AUTO) 88.7 % (43.0-81.0); PLATELET COUNT (AUTO) 165 /CMM (150-450); RDW COEFFICIENT OF VARIATION 19.1 (11.5-15.0); RED BLOOD CELL COUNT(AUTO) 3.51 MIL/uL (4.5-6.0); WHITE BLOOD COUNT (AUTO) 7.9 K/uL (4.3-11.0)
[2016-10-19 07:06] LABS: CALCIUM, SERUM 8.2 mg/dL (8.5-10.1); CARBON DIOXIDE 26 mmol/L (21-32); CHLORIDE 97 mmol/L (98-107); GLUCOSE 196 mg/dL (74-106); POTASSIUM 5.9 mmol/L (3.5-5.1); SODIUM SERUM 136 mmol/L (136-145); UREA NITROGEN, BLOOD 78 mg/dL (7-18)
[2016-10-19 07:11] LABS: INR 0.94 (0.87-1.13)
[2016-10-19] MEDS: ZYTIGA 250 MG PO SCH (07:30)
[2016-10-19] MEDS: PANTOPRAZOLE 40 MG TABLET.DR PO SCH (07:30)
[2016-10-19 07:32] LABS: CREATININE 7.5 mg/dL (0.6-1.3)
[2016-10-19] MEDS: SEVELAMER CARBONATE 800 MG TABLET PO SCH ×3 (07:51→18:58)
[2016-10-19] MEDS ORDERED: HEPARIN SODIUM, PORCINE 1,000 UNIT/ML VIAL ONE (08:09)
[2016-10-19] MEDS ORDERED: IOHEXOL 0 ML IV ONE (08:09)
[2016-10-19] MEDS ORDERED: LIDOCAINE HCL/PF 1% 30 ML SDV ONE (08:09)
[2016-10-19] MEDS: NIFEdipine XL (30MG) 30 MG TAB PO SCH ×2 (09:00→20:50)
[2016-10-19] MEDS: ASPIRIN 81 MG TAB.CHEW PO SCH (09:00)
[2016-10-19] MEDS: METOPROLOL TARTRATE 50 MG TABLET PO SCH ×2 (09:00→20:49)
[2016-10-19] MEDS: AMIODARONE HCL 200 MG TABLET PO SCH ×2 (09:00→20:50)
[2016-10-19] MEDS: predniSONE 5 MG TABLET PO SCH ×2 (09:00→16:36)
[2016-10-19] MEDS: SIMVASTATIN 20 MG TABLET PO SCH (20:56)
[2016-10-19] MEDS: TEMAZEPAM 15 MG CAPSULE PO PRN (23:39)
[2016-10-20 04:00] VITALS: BP 123/60
[2016-10-20 04:36] VITALS: BP 156/61
[2016-10-20] MEDS ORDERED: IV NS 0.9% 250 ML IV ONE (04:41)
[2016-10-20] MEDS: PIPERACILLIN /TAZOBACTAM 2.25 G in IV D5W 50 ML IV SCH (04:47)
[2016-10-20 08:00] VITALS: BP 128/53
[2016-10-20] MEDS: ZYTIGA 250 MG PO SCH (08:09)
[2016-10-20] MEDS: AMIODARONE HCL 200 MG TABLET PO SCH (08:10)
[2016-10-20] MEDS: PANTOPRAZOLE 40 MG TABLET.DR PO SCH (08:11)
[2016-10-20] MEDS: ASPIRIN 81 MG TAB.CHEW PO SCH (08:11)
[2016-10-20] MEDS: NIFEdipine XL (30MG) 30 MG TAB PO SCH (08:11)
[2016-10-20] MEDS: SEVELAMER CARBONATE 800 MG TABLET PO SCH (08:11)
[2016-10-20] MEDS: METOPROLOL TARTRATE 50 MG TABLET PO SCH (08:11)
[2016-10-20] MEDS: predniSONE 5 MG TABLET PO SCH (08:17)
[2016-10-20 12:00] VITALS: BP 128/53
== END 2016-10-20 11:40 | disposition left against medical advice (07) | DRG 341 ==
LOC: ER 21:12 → ICU 10-16 01:06 → ICUOV 10-18 05:58 → TELE1 10-18 10:40 → MEDSG1 10-19 12:48
PROVIDERS: ADMIT Internal Medicine; ATTEND Internal Medicine
PROC: 5A1D60Z (ICD-10-PCS; 2016-10-16)
PROC: 0DTJ4ZZ Resection of Appendix, Percutaneous Endoscopic Approach (ICD-10-PCS; principal; 2016-10-16 06:00)
PROC: 02HV33Z Insertion of Infusion Device into Superior Vena Cava, Percutaneous Approach (ICD-10-PCS; 2016-10-19)
PROC: B518ZZA Fluoroscopy of Superior Vena Cava, Guidance (ICD-10-PCS; 2016-10-19)
DX: K35.80 Unspecified acute appendicitis (principal); N18.6 End stage renal disease; I50.43 Acute on chronic combined systolic (congestive) and diastolic (congestive) heart failure; R53.2 Functional quadriplegia; I21.4 Non-ST elevation (NSTEMI) myocardial infarction; I13.2 Hypertensive heart and chronic kidney disease with heart failure and with stage 5 chronic kidney disease, or end stage renal disease; E44.0 Moderate protein-calorie malnutrition; D68.59 Other primary thrombophilia; Z68.1 Body mass index [BMI] 19.9 or less, adult; J98.11 Atelectasis; T82.590A Other mechanical complication of surgically created arteriovenous fistula, initial encounter; C79.51 Secondary malignant neoplasm of bone; Z99.2 Dependence on renal dialysis; Z95.5 Presence of coronary angioplasty implant and graft; E11.22 Type 2 diabetes mellitus with diabetic chronic kidney disease; C61 Malignant neoplasm of prostate; I25.10 Atherosclerotic heart disease of native coronary artery without angina pectoris; I25.5 Ischemic cardiomyopathy; I48.0 Paroxysmal atrial fibrillation; I27.2 Other secondary pulmonary hypertension; Z86.73 Personal history of transient ischemic attack (TIA), and cerebral infarction without residual deficits; D63.8 Anemia in other chronic diseases classified elsewhere; R91.8 Other nonspecific abnormal finding of lung field; E87.5 Hyperkalemia; E78.5 Hyperlipidemia, unspecified; R63.4 Abnormal weight loss
CPT/HCPCS: 36415; 36569; 70486-TC; 71010-TC; 71270-TC; 80048-TC; 80053-TC; 80076-TC; 82272-TC; 82306; 82378; 82728-TC; 82746; 83540-TC; 83605-TC; 83615-TC; 83735-TC; 83880; 84100-TC; 84153-TC; 84154-TC; 84443-TC; 84484-TC; 84550-TC; 85025-TC; 85045-TC; 85610-TC; 85652-TC; 85730-TC; 86850-TC; 87040-TC; 87081-TC; 90935-TC; 93307-TC; 94799-TC; A4606; A6402; J0282; J0360; J1160; J1644; J1720; J2543; J3010; J3490; J7030; J7040; J7050; J7060; J7512; Q9967; Z7610

== ENCOUNTER 2016-11-11 11:17 | Inpatient (IN) | payer MEDICARE, MEDICAID ==
[~2016-11-11] VITALS: Ht 165.1 cm; Wt 49.4 kg
[~2016-11-11 11:17] MED LIST changes: +GLIM1TAB2 PO; +RENVELA-SEVELAMER PO
--- NOTE | 2016-11-11 11:34 | NUR ---
PT TO ED ROOM 05. COUGH, CONGESTION, FEVER, AND WEAKNESS SINCE YESTERDAY. A/A/O. CHANGED TO GOWN. EKG AT BEDSIDE. CONNECTED TO MONITOR. O2 VIA N/C. MD AT BEDSIDE FOR EVAL.
--- NOTE | 2016-11-11 11:35 | NUR ---
rectal temperature 99.2 F
--- NOTE | 2016-11-11 11:35 | NUR ---
CALLED NURSING SUP. FOR TELE BED
--- NOTE | 2016-11-11 11:56 | NUR ---
CARD PUNCHING MACHINE OPERATOR AT BEDSIDE FOR BLOOD DRAW.
--- NOTE | 2016-11-11 11:56 | NUR ---
PATIENT SAYS HE PRODUCES VERY SCANT AMOUNT OF URINE. UNABLE TO PROVIDE WITH URINE SAMPLE AT THIS TIME. DOESN'T WANT IN/OUT STRAIGHT CATH.
[2016-11-11 12:09] LABS: BASOPHILS % (AUTO) 0.1 % (0.0-2.0); EOSINOPHILS # (AUTO) 0.1 /CMM (0.0-0.7); EOSINOPHILS % (AUTO) 0.8 % (0.0-6.0); HEMATOCRIT 29 % (39-51); HEMOGLOBIN 9.4 g/dL (13.5-17.5); LYMPHOCYTES # (AUTO) 0.7 /CMM (0.8-4.8); LYMPHOCYTES % (AUTO) 4.6 % (20.0-44.0); MEAN CORPUSCULAR HEMOGLOBIN 27 PG (26.0-33.0); MEAN CORPUSCULAR HGB CONC 32 g/dl (31.0-36.0); MEAN CORPUSCULAR VOLUME 84 fL (80-96); MONOCYTES # (AUTO) 1.6 /CMM (0.1-1.30); MONOCYTES % (AUTO) 9.9 % (2.0-12.0); NEUTROPHILS # (AUTO) 13.8 /CMM (1.8-8.9); NEUTROPHILS % (AUTO) 84.6 % (43.0-81.0); PLATELET COUNT (AUTO) 217 /CMM (150-450); RDW COEFFICIENT OF VARIATION 21.2 (11.5-15.0); RED BLOOD CELL COUNT(AUTO) 3.49 MIL/uL (4.5-6.0); WHITE BLOOD COUNT (AUTO) 16.2 K/uL (4.3-11.0)
[2016-11-11 12:23] LABS: INR 1.31 (0.87-1.13); PROTHROMBIN TIME 13.8 SECS (9.5-12.7)
[2016-11-11] MEDS ORDERED: SEVE800T8 PO (12:23)
[2016-11-11 12:27] LABS: ALANINE AMINOTRANSFERASE 334 U/L (12-78); ALBUMIN 3.1 g/dL (3.4-5.0); ALKALINE PHOSPHATASE 57 U/L (46-116); ASPARTATE AMINOTRANSFERASE 368 U/L (15-37); BILIRUBIN,DIRECT 0.4 mg/dL (0.0-0.2); CALCIUM, SERUM 10.1 mg/dL (8.5-10.1); CARBON DIOXIDE 18 mmol/L (21-32); CHLORIDE 95 mmol/L (98-107); GLUCOSE 172 mg/dL (74-106); POTASSIUM 5.2 mmol/L (3.5-5.1); SODIUM SERUM 137 mmol/L (136-145); TOTAL PROTEIN, SERUM 7.6 g/dL (6.4-8.2); UREA NITROGEN, BLOOD 55 mg/dL (7-18)
[2016-11-11 12:29] LABS: TROPONIN I 0.115 ng/mL (0.00-0.056)
[2016-11-11 12:41] LABS: CREATININE 8.1 mg/dL (0.6-1.3)
[2016-11-11] MEDS: PIPERACILLIN /TAZOBACTAM 3.375 G in IV D5W 50 ML IV ONE (12:45)
--- NOTE | 2016-11-11 12:45 | NUR ---
urine sample was colected from patient and send to lab.
[2016-11-11] MEDS ORDERED: VANCOMYCIN 1 GM in IV D5W 250 ML IV ONE (13:00)
[2016-11-11 13:02] LABS: APPEARANCE,URINE Slightly Cloudy (CLEAR); BILIRUBIN,URINE Negative (NEGATIVE); BLOOD, URINE Large Ery/uL (NEGATIVE); COLOR,URINE Yellow (YELLOW); KETONES,URINE Negative (NEGATIVE); LEUKOCYTE ESTERASE ,URINE Negative (NEGATIVE); NITRITE, URINE Negative (NEGATIVE); PH,URINE 8.5 (5.0-8.0); PROTEIN,URINE >=300 mg/dl (NEGATIVE); UGLUCOSE 100 MG/DL mg/dL (NEGATIVE); UROBILINOGEN,URINE 0.2 EU/dL (0.2)
[2016-11-11 13:08] LABS: BACTERIA,URINE Rare /HPF (None Seen); RBC,URINE 21-50 /HPF (0-2); SQUAMOUS EPITHELIAL CELL,UR None Seen /HPF (None Seen)
--- NOTE | 2016-11-11 13:14 | NUR ---
REPORT GIVEN TO NURSE WORLEY 314-2 TELE. ACCEPTING PHYSICIAN Kathleen MCCARTHY
--- NOTE | 2016-11-11 13:30 | NUR ---
MS/fisher - Patient was admitted from ER due to nausea & vomiting & weakness to do ADL'S. Fully admitted, pictures taken of bruises to both forearms. Awaiting orders from Dr Li.
--- NOTE | 2016-11-11 14:15 | NUR ---
MS/RN MRSA MRSA swab collected and sent to lab.
--- NOTE | 2016-11-11 14:30 | NUR ---
MS/RN Order's Orders obtained from Dr Li for home medications to be continued and HDX ordered for tomorrow. Home med list completed and sent/faxed to pharmacy.
[2016-11-11 16:00] VITALS: BP 118/61
[2016-11-11] MEDS: NIFEdipine (10MG) 10 MG CAPSULE PO SCH (17:00)
[2016-11-11] MEDS ORDERED: TEMAZEPAM 15 MG CAPSULE PO PRN (18:00)
[2016-11-11] MEDS: SEVELAMER CARBONATE 800 MG TABLET PO SCH (18:16)
[2016-11-11] MEDS: CALCIUM CARB 600MG /VIT D 1 EACH TABLET PO SCH (18:16)
--- NOTE | 2016-11-11 19:01 | NUR ---
MS/RN End note Patient remains stable at this time, family at bedside, updated with plan of care. Home medication sent to pharmacy along with medication reconciliation. Will endorse to nigth shift.
--- NOTE | 2016-11-11 19:30 | NUR ---
NET LEAD ARCHITECT OPENING NOTES: PATIENT IN BED, AOX4, ON O2 AT 2 LPM VIA NC, BREATHING EVEN AND UNLABORED.C BREATH SOUNDS DIMINISHED AT LOWER LUNG HUTSON. ON TELE MONITORING WITH SINUS RHYTHM AT RATE OF 70S. PATIENT HAS OLD, SWOLLEN AV FISTULA OVER LEFT FOREARM, WITHOUT ANY PALPABLE THRILLS. PATIENT HAS A PERMACATH ON LCW, WITH CLEAN AND INTACT DRESSING. PIV OVER R WRIST G 20 INTACT AND PATENT TO FLUSH. PROVIDED FOR COMFORT AND SAFETY. DAUGHTER AT BEDSIDE. WILL CONT TO MONITOR.
[2016-11-11 20:00] VITALS: BP 142/79
[2016-11-11 20:18] LABS: FREE PSA 38.64 ng/mL (0.00-45); PROSTATE SPECIFIC ANTIGEN SCR 230.93 ng/mL (0.00-4.00)
[2016-11-11] MEDS: MIRTAZAPINE 15 MG TABLET PO SCH (21:32)
[2016-11-11] MEDS ORDERED: SIMVASTATIN 20 MG TABLET PO SCH (22:00)
[2016-11-12] VITALS (9 sets, daily range): BP systolic 123–166; BP diastolic 50–74
--- NOTE | 2016-11-12 | NUR ---
RN NOTES: PATIENT COMPLAINED OF DIFFICULTY SLEEPING, REQUESTED FOR TEMAZEPAM. RESTORIL 30 MG PO GIVEN PRN. WILL CONT TO MONITOR.
--- NOTE | 2016-11-12 06:23 | NUR ---
RN NOTES: NOTED PATIENT'S HR IN TELE MONITOR AT AFIB 130S, PATIENT DIFFICULT TO AWAKEN, BP CHECKED AT 166/68, HR: 122. BLOOD SUGAR CHECKED AT 56 MG/DL, ADMINISTERED DEXTROSE 50 % 1 AMP.
[2016-11-12] MEDS ORDERED: DEXTROSE 50%-WATER 50 ML DISP.SYRIN ONE ×2 (06:25→11:40)
--- NOTE | 2016-11-12 06:30 | NUR ---
RN NOTES: STAT CXR, LABS DONE. PATIENT FOR EKG AND ABG. TEMPORARILY PLACED ON NON REBREATHER MASK SINCE O2 SAT AT 86%
--- NOTE | 2016-11-12 06:53 | NUR ---
RN NOTES: BS RECHECKED AT 195 MG/DL. PATIENT STILL DIFFICULT TO AWAKEN AT HTIS TIME. EKG TAKEN : AFIB AT RATE OF 131.
--- NOTE | 2016-11-12 06:55 | NUR ---
MIKE NOTES: ABG RESULT: PH: 7.512, PCO2: 31.4, PO2: 54.5, HCO3: 24.6. PAGED DR MCCARTHY
[2016-11-12 06:56] LABS: BASOPHILS % (AUTO) 0.4 % (0.0-2.0); EOSINOPHILS # (AUTO) 0.4 /CMM (0.0-0.7); HEMATOCRIT 24 % (39-51); LYMPHOCYTES # (AUTO) 1.2 /CMM (0.8-4.8); LYMPHOCYTES % (AUTO) 9.6 % (20.0-44.0); MEAN CORPUSCULAR HEMOGLOBIN 27 PG (26.0-33.0); MEAN CORPUSCULAR HGB CONC 33 g/dl (31.0-36.0); MEAN CORPUSCULAR VOLUME 83 fL (80-96); MONOCYTES # (AUTO) 0.9 /CMM (0.1-1.30); MONOCYTES % (AUTO) 6.9 % (2.0-12.0); NEUTROPHILS # (AUTO) 10.3 /CMM (1.8-8.9); NEUTROPHILS % (AUTO) 80.1 % (43.0-81.0); PLATELET COUNT (AUTO) 143 /CMM (150-450); RDW COEFFICIENT OF VARIATION 22.5 (11.5-15.0); RED BLOOD CELL COUNT(AUTO) 2.91 MIL/uL (4.5-6.0); WHITE BLOOD COUNT (AUTO) 12.8 K/uL (4.3-11.0)
[2016-11-12] MEDS ORDERED: DEXTROSE 50%-WATER 50 ML DISP.SYRIN IVP ONE (07:00)
--- NOTE | 2016-11-12 07:00 | NUR ---
RN NOTES: CALLED DR ARAIZA (TANK BUILDER AND ERECTOR FOR DR BARROS) AND DR TERRY (TANK BUILDER AND ERECTOR FOR DR MCCARTHY
--- NOTE | 2016-11-12 07:09 | NUR ---
@ 0709 PT PLACED ON NON REBREATHER DUE TO 87% SATURATION AND 55mmHg PAO2 Addendum: 11/12/16 at 1048 by BROOKE RUIZ RT Amended: Links added.
[2016-11-12] MEDS ORDERED: METOPROLOL TARTRATE INJ 5 MG/5 ML AMPUL IVP STA (07:12)
--- NOTE | 2016-11-12 07:15 | NUR ---
RN NOTES: DR ARAIZA CALLED BACK, PER MD, GIVE 5 MG METOPROLOL IV ONCE. ORDER NOTED AND CARRIED OUT.
[2016-11-12 07:19] LABS: ALANINE AMINOTRANSFERASE 1387 U/L (12-78); ALBUMIN 2.4 g/dL (3.4-5.0); ALKALINE PHOSPHATASE 40 U/L (46-116); ASPARTATE AMINOTRANSFERASE 2442 U/L (15-37); BILIRUBIN,TOTAL 0.8 mg/dL (0.2-1.0); CALCIUM, SERUM 8.8 mg/dL (8.5-10.1); CARBON DIOXIDE 28 mmol/L (21-32); CHLORIDE 95 mmol/L (98-107); GLUCOSE 288 mg/dL (74-106); MAGNESIUM 2.3 mg/dL (1.8-2.4); PHOSPHORUS 5.6 mg/dL (2.5-4.9); POTASSIUM 4.4 mmol/L (3.5-5.1); SODIUM SERUM 136 mmol/L (136-145); TOTAL PROTEIN, SERUM 5.9 g/dL (6.4-8.2); UREA NITROGEN, BLOOD 75 mg/dL (7-18)
--- NOTE | 2016-11-12 07:25 | NUR ---
RN NOTES: RECEIVED CALL BACK FROM DR Kathleen MCCARTHY, INFORMED MD OF PATIENT'S CHANGE OF CONDITION AND RESULT OF EKG, ABG, INFORMED HIM CXR DONE BUT AWAITING RESULT. MD ORDERED FOR LACTIC ACID, AND PHARMACY TO DOSE: VANCOMYCIN AND ZOSYN. ORDERS NOTED AND CARRIED OUT.
--- NOTE | 2016-11-12 07:40 | NUR ---
FLOOR FINISHER HELPER CLOSING NOTES: PATIENT IN BED, STILL LETHARGIC, ON NON REBREATHER MASK WITH O2 SAT AT 98-100%, BREATHING EVEN AND UNLABORED. MOST RECENT BLOOD SUGAR CHECKED AT 195 MG/DL, 15 MINS AFTER D50 WAS GIVEN. HEMODIALYSIS NURSE AT BEDSIDE TO START HD. DUE MEDS GIVEN, PROVIDED FOR SAFETY. BED IN LOWEST AND LOCKED POSITION. SIDERAILS UP X3. REPORT GIVEN TO MIKE TSANG FOR SHANNAN.
[2016-11-12 07:45] LABS: CREATININE 8.9 mg/dL (0.6-1.3)
--- NOTE | 2016-11-12 07:45 | NUR ---
MS/RN Patient received Patient received from operator electronic warfare. Lethargic, on non rebreather at this time. Vital signs within normal range for patient. Awaiting call back from Dr Li at this time.
--- NOTE | 2016-11-12 07:45 | NUR ---
MS/RN HDX HDX started at bedside.
[2016-11-12] MEDS: SEVELAMER CARBONATE 800 MG TABLET PO SCH ×3 (08:00→17:46)
--- NOTE | 2016-11-12 08:00 | NUR ---
MS/customer solutions specialist Tele reading a-fib, heart rate 120's.
--- NOTE | 2016-11-12 08:20 | NUR ---
MS/RN HDX terminated HDX terminated due to poor blood return via dialysis catheter. Dr Li made aware.
[2016-11-12] MEDS ORDERED: ALTEPLASE CATHFLO 2 MG/VIAL IV ONE (08:30)
--- NOTE | 2016-11-12 08:30 | NUR ---
MS/RN Pharmacy Called pharmacy to ask for zosyn or vanco to be verified. Informed by Isabelle that pharmacy was busy as she had 10 admissions to sort out and she would get to it as soon as she could. Informed that Dr Li wanted medications to be started, stated that she would make it high priority.
--- NOTE | 2016-11-12 08:40 | NUR ---
CHARGE NOTES DR. Jami MCCARTHY UPDATED ON PT'S STATUS, ON NON REBREATHER AT 15L, HD NURSE BILL UNABLE TO COMPLETE HD DUE TO CATHETER FAILURE. PT LETHARGIC.
[2016-11-12] MEDS ORDERED: FEE PK DOSING 1 MIN EA MC ONE (08:44)
--- NOTE | 2016-11-12 08:48 | NUR ---
MS/RN Dr Li Received call from Dr Li - informed of latest CXR result (increasing/developing bihilar edema or infection). Still awaiting lactic acid result.
[2016-11-12] MEDS ORDERED: HOME MED MISCELLANEOUS XX SCH (09:00)
[2016-11-12] MEDS: NIFEdipine (10MG) 10 MG CAPSULE PO SCH ×2 (09:00→17:48)
[2016-11-12] MEDS ORDERED: GLIMEPIRIDE 1 MG TABLET PO SCH (09:00)
[2016-11-12] MEDS: ASPIRIN 81 MG TAB.CHEW PO SCH ×2 (09:00→10:12)
[2016-11-12] MEDS: CALCIUM CARB 600MG /VIT D 1 EACH TABLET PO SCH ×2 (09:00→17:46)
[2016-11-12] MEDS: VIT B CMPLX 3/FA/VIT C/BIOTIN 1 TAB TABLET PO SCH (09:00)
--- NOTE | 2016-11-12 09:00 | NUR ---
MS/RN Morning labs Morning labs reviewed: -WBC 12.8 -H&H 8/24 -Creat 8.9 -BUN 75 -Trop 0.131 -Lactic acid 0.9
--- NOTE | 2016-11-12 09:04 | NUR ---
MS/RN Blood sugar Blood sugar at 0900 - 96.
[2016-11-12] MEDS: PIPERACILLIN /TAZOBACTAM 2.25 G in IV D5W 50 ML IV SCH ×3 (09:51→23:42)
--- NOTE | 2016-11-12 10:00 | NUR ---
MS/RN [facility] called again to inform that we still need vanco.
[2016-11-12] MEDS: predniSONE 5 MG TABLET PO SCH ×2 (10:11→17:46)
[2016-11-12] MEDS: METOPROLOL TARTRATE 50 MG TABLET PO SCH ×2 (10:12→17:46)
--- NOTE | 2016-11-12 10:30 | NUR ---
MS/RN S/B Dr Li Seen by Dr Li - US guided thoracentesis ordered. consent form to be obtained.
[2016-11-12] MEDS ORDERED: EPOETIN ALFA (20,000 UNIT) 20,000 UNIT/ML VIAL SQ ONE (11:00)
[2016-11-12 11:07] LABS: ALBUMIN 2.5 g/dL (3.4-5.0); BILIRUBIN,DIRECT 0.2 mg/dL (0.0-0.2); BILIRUBIN,TOTAL 0.7 mg/dL (0.2-1.0)
--- NOTE | 2016-11-12 11:29 | NUR ---
MS/RN Non rebreather RT attempting to switch patient back to simple mask, but patient desaturates down to high 80's. Placed back on non rebreather mask at 15l. RT at bedside and will redraw blood gas. Dr Jeong informed and will see patient.
[2016-11-12 11:47] LABS: ABG BASE EXCESS 2.6 mmol/L; ABG PCO2 33.4 mmHg (35.0-45.0); ABG PH 7.503 (7.350-7.450); ABG PO2 102.1 mmHg (75.0-100.0); AaDO2 577.5 mmHg; COHb 0.6 % (0.5-1.5); MetHb 0.2 % (0.0-1.5); O2Hb 95.2 % (94.0-97.0); SITE, ABG Right Brachial; VENT MODE, BG NON REBREATHER
--- NOTE | 2016-11-12 12:00 | NUR ---
MS/rotary cutter operator Tele reading NSR, heart rate in 70's
--- NOTE | 2016-11-12 12:00 | NUR ---
MS/RN ABG result ABG result, improved since previous draw. Values placed in chart. -pco2 33.4 -po2 102.1
--- NOTE | 2016-11-12 12:37 | NUR ---
MS/web developer programmer held Renagel held as patient not eating and lethargic, at risk of aspiration.
--- NOTE | 2016-11-12 12:39 | NUR ---
MS/RN [facility] called again to inform that we are still waiting for vancomycin.
--- NOTE | 2016-11-12 12:56 | NUR ---
MS/RN US guided thoracentesis US guided thoracentesis in progress at this time.
--- NOTE | 2016-11-12 14:10 | NUR ---
MS/RN Orders Order received from Dr Li for stat CT head without contrast.
--- NOTE | 2016-11-12 14:40 | NUR ---
MS/RN Pathology Body fluid sent to lab for culture, cytology and LDL.
[2016-11-12] MEDS: VANCOMYCIN 500 MG in IV D5W 100 ML IV PRN (15:30)
--- NOTE | 2016-11-12 15:44 | NUR ---
MS/RN CT head result CT head shows atrophy and chronic ischemic change without acute hemorrhage or mass effect. Result relaid to Dr Li.
--- NOTE | 2016-11-12 17:00 | NUR ---
MS/RN Blood sugar Blood sugar at 5p - 96, no coverage needed. at bedside, stated that she will make sure the patient eats.
--- NOTE | 2016-11-12 18:41 | NUR ---
MS/RN End note Patient a little more awake at this time, able to swallow all medications and answer simple questions. has been updated as to all results. Will endorse to distribution warehouse manager.
--- NOTE | 2016-11-12 19:30 | NUR ---
SONOGRAPHER OPENING NOTES: PATIENT IN BED, LETHARGIC, OPENS EYES ONLY WHEN SHAKEN, ON NON REBREATHER AT 15 LPM. BREATH SOUNDS DIMINISHED, BREATHING AT RATE OF 20-22 PER MINUTE. PIV OVER R WRIST G 22 INTACT AND PATENT TO FLUSH. LCW PERMACATH WITH CLEAN AND INTACT DRESSING. ALEX AV FISTULA NEGATIVE FOR BRUITS OR THRILLS. ON TELE MONITORING, SINUS RHYTHM AT RATE OF 63 BPM. PROVIDED FOR COMFORT AND SAFETY. ON STRICT ASPIRATION PRECAUTIONS. DAUGHTER AT BEDSIDE TO DISCUSS PLAN OF CARE FOR TONIGHT. WILL CONT TO MONITOR.
--- NOTE | 2016-11-12 19:55 | NUR ---
RN NOTES: PATIENT ABLE TO WAKE UP AND RESPOND WHEN ASKED IF HE WOULD LIKE A SNACK. PATIENT ABLE TO TAKE APPLESAUCE WITHOUT ASPIRATION. ON STRICT ASPIRATION PRECAUTION. AND DAUGHTERS AT BEDSIDE.
--- NOTE | 2016-11-12 20:59 | NUR ---
RN NOTES: PATIENT MORE AWAKE AND CONVERSING NOW, SAYING HE IS HUNGRY. ASSISTED WITH SNACK OF JELLO AND CRACKERS. ABLE TO TOLERATE FOOD WELL.
[2016-11-12] MEDS: HEPARIN SODIUM, PORCINE 5000 UNITS/1 ML VIAL SQ SCH (21:03)
--- NOTE | 2016-11-12 21:33 | NUR ---
RN NOTES: BLOOD SUGAR CHECKED AT 100 MG/DL. PATIENT HAS JUST FINISHED 1 CUP OF JELLO, 2 CRACKERS, AND 125 ML APPLE JUICE. APPEARS CALM AND IN NO DISTRESS, STILL ON NON REBREATHER MASK AT 15 LPM, O2 SAT 100%, SINUS RHYTHM ON TELE MONITOR AT RATE OF 57 AT THIS TIME.
[2016-11-12] MEDS: MIRTAZAPINE 15 MG TABLET PO SCH (22:00)
[2016-11-13] VITALS (7 sets, daily range): BP systolic 113–138; BP diastolic 51–64
--- NOTE | 2016-11-13 00:30 | NUR ---
RN NOTES: NOTED PIV OVER RFA INFILTRATED. ATTEMPTED TO REINSERT IV ONE TIME, BUT VEIN BULGED EASILY.
--- NOTE | 2016-11-13 01:00 | NUR ---
RN NOTES: NEW PIV OVER R UPPER ARM G 24 INSERTED BY WARD IGLESIAS.
--- NOTE | 2016-11-13 01:06 | NUR ---
RN NOTES: NEW IV SITE OVER L EJ, G22 INSERTED BY ED, RN FROM ICU, WITH GOOD BLOOD RETURN
--- NOTE | 2016-11-13 04:08 | NUR ---
RN NOTES: TRIED TO WEAN PATIENT OFF NON REBREATHER. PLACED PT ON SIMPLE FACE MASK AT 10 LPM. O2 SAT AT 99-98 % AT THIS TIME. PATIENT ASLEEP BUT EASILY AWAKENS.
--- NOTE | 2016-11-13 05:13 | NUR ---
RN NOTES: PATIENT'S O2 SAT REMAINED AT 99-100 % WHILE ON SIMPLE FACE MASK AT 10 LPM. DECREASED O2 TO 6 LPM VIA FACE MASK. ON CONTINUOUS O2 SAT MONITORING.
[2016-11-13] MEDS: PIPERACILLIN /TAZOBACTAM 2.25 G in IV D5W 50 ML IV SCH ×3 (05:51→21:05)
--- NOTE | 2016-11-13 06:09 | NUR ---
RN NOTES: PATIENT'S BLOOD SUGAR IS 123 MG/DL. PATIENT ASLEEP BUT EASILY AWAKENED TO NAME BEING CALLED.
--- NOTE | 2016-11-13 06:27 | NUR ---
RN NOTES: PATIENT WAS ABLE TO TOLERATE O2 VIA SIMPLE FACE MASK AT 6 LPM. CHANGED TO O2 VIA NASAL CANNULA AT 4 LPM. O2 SAT AT 98%. WILL CONT TO MONITOR.
[2016-11-13 06:48] LABS: EOSINOPHILS % (AUTO) 0.1 % (0.0-6.0); HEMATOCRIT 30 % (39-51); HEMOGLOBIN 10.1 g/dL (13.5-17.5); LYMPHOCYTES # (AUTO) 0.4 /CMM (0.8-4.8); LYMPHOCYTES % (AUTO) 3.9 % (20.0-44.0); MEAN CORPUSCULAR HEMOGLOBIN 28 PG (26.0-33.0); MEAN CORPUSCULAR HGB CONC 33 g/dl (31.0-36.0); MEAN CORPUSCULAR VOLUME 84 fL (80-96); MONOCYTES # (AUTO) 0.7 /CMM (0.1-1.30); MONOCYTES % (AUTO) 6.9 % (2.0-12.0); NEUTROPHILS # (AUTO) 9.7 /CMM (1.8-8.9); NEUTROPHILS % (AUTO) 89.1 % (43.0-81.0); PLATELET COUNT (AUTO) 150 /CMM (150-450); RDW COEFFICIENT OF VARIATION 22.2 (11.5-15.0); RED BLOOD CELL COUNT(AUTO) 3.64 MIL/uL (4.5-6.0); WHITE BLOOD COUNT (AUTO) 10.9 K/uL (4.3-11.0)
--- NOTE | 2016-11-13 06:49 | NUR ---
CHEMICAL PLANT OPERATOR CLOSING NOTES: PATIENT IN BED, ASLEEP BUT EASILY AWAKENED TO NAME BEING CALLED, ON O2 VIA NC AT 4 LPM, BREATHING EVEN AND UNLABORED. O2 SAT AT 98%. ON TELE MONITORING OF SINUS AT RATE OF 61. PIV OVER R UPPER ARM G 24 INTACT AND PATENT TO FLUSH. R EJ IV CATHETER INTACT AND PATENT TO FLUSH WELL. DUE MEDS GIVEN. PROVIDED FOR COMFORT AND SAFETY. BLOOD SUGAR CHECKED THIS AM AT 123 MG/DL. NO ACUTE CHANGE IN CONDITION NOTED THROUGH SHIFT. WILL ENDORSE TO AM RN FOR SHANNAN.
--- NOTE | 2016-11-13 07:10 | NUR ---
CAMP COOK NOTES RECEIVED PATIENT IN BED, SLEEPING, AROUSES EASILY. ON TELE MONITOR, SINUS RHYTHM HR 62. ON OXYGEN AT 4LPM VIA NC, SATING 100%, BREATHING EVEN AND NON LABORED, NO SOB. NO FACIAL GRIMACE, APPEARS COMFORTABLE IN BED, CALL LIGHT WITHIN REACH. WILL CONT TO MONITOR.
[2016-11-13 07:16] LABS: CALCIUM, SERUM 8.2 mg/dL (8.5-10.1); CARBON DIOXIDE 25 mmol/L (21-32); CHLORIDE 95 mmol/L (98-107); GLUCOSE 128 mg/dL (74-106); MAGNESIUM 2.3 mg/dL (1.8-2.4); PHOSPHORUS 5.5 mg/dL (2.5-4.9); POTASSIUM 5.4 mmol/L (3.5-5.1); SODIUM SERUM 134 mmol/L (136-145); UREA NITROGEN, BLOOD 76 mg/dL (7-18)
[2016-11-13 07:18] LABS: CREATININE 9.3 mg/dL (0.6-1.3)
[2016-11-13] MEDS: SEVELAMER CARBONATE 800 MG TABLET PO SCH ×3 (08:50→17:26)
[2016-11-13] MEDS: CALCIUM CARB 600MG /VIT D 1 EACH TABLET PO SCH ×2 (08:51→17:26)
[2016-11-13] MEDS: predniSONE 5 MG TABLET PO SCH ×2 (08:51→17:26)
[2016-11-13] MEDS: VIT B CMPLX 3/FA/VIT C/BIOTIN 1 TAB TABLET PO SCH (08:52)
[2016-11-13] MEDS: METOPROLOL TARTRATE 50 MG TABLET PO SCH ×2 (08:52→17:26)
[2016-11-13] MEDS: HEPARIN SODIUM, PORCINE 5000 UNITS/1 ML VIAL SQ SCH (08:57)
[2016-11-13] MEDS: NIFEdipine (10MG) 10 MG CAPSULE PO SCH ×2 (09:12→17:26)
[2016-11-13 10:20] LABS: ALBUMIN 2.2 g/dL (3.4-5.0); BILIRUBIN,DIRECT 0.2 mg/dL (0.0-0.2); BILIRUBIN,TOTAL 0.7 mg/dL (0.2-1.0)
--- NOTE | 2016-11-13 10:41 | NUR ---
PATIENT IS SEEN BY DR. MCCARTHY TODAY, ELEVATED POTASSIUM. MD IS AWARE, PER MD PATIENT WILL HAVE DIALYSIS TODAY AND WILL CORRECT POTASSIUM WITH HD. HEPARIN SC WAS DISCONTINUED, PATIENT WILL BE AMBULATING PER MD, WILL FOLLOW UP TO PT.
--- NOTE | 2016-11-13 11:27 | NUR ---
PATIENT IS TAKEN TO RADIOLOGY DEPT FOR BONE SCAN PROCEDURE.
--- NOTE | 2016-11-13 11:53 | NUR ---
NM:WB BONE SCAN WAS COMPLETED. RECH:RB.
--- NOTE | 2016-11-13 13:00 | NUR ---
CALLED PHARMACY, ZOSYN IV NOT AVAILABLE AT THIS TIME. WILL FOLLOW UP.
--- NOTE | 2016-11-13 13:08 | NUR ---
DIALYSIS TREATMENT STARTED, DIALYSIS NURSE AT THE BEDSIDE.
--- NOTE | 2016-11-13 14:53 | NUR ---
CALLED PHARMACY AGAIN X3, ZOSYN IV STILL NOT AVAILABLE.
--- NOTE | 2016-11-13 15:15 | NUR ---
DIALYSIS TREATMENT DONE, PATIENT TOLERATED WELL. BP 129/58, NO SOB. 2L FLUID OUTPUT PER DIALYSIS NURSE.
[2016-11-13] MEDS: VANCOMYCIN 500 MG in IV D5W 100 ML IV PRN (16:06)
--- NOTE | 2016-11-13 16:07 | NUR ---
VANCOMYCIN RANDOM (11/13/16) 23, INFORMED PHARMACY, HELD VANCOMYCIN DOSE AFTER DIALYSIS TREATMENT TODAY 11/13/16
--- NOTE | 2016-11-13 18:35 | NUR ---
MS RN CLOSING NOTES PATIENT IN BED, AWAKE. NOT IN DISTRESS. COOPERATIVE, NO C/O PAIN OR ANY DISCOMFORT. ON ANTIBIOTIC WITH NO ADVERSE REACTION, AFEBRILE, NO DIARRHEA. GOOD APPETITE. GS CULTURE BODY FLUIDS RESULT PENDING. WILL ENDORSE TO FUDGER RN FOR SHANNAN.
--- NOTE | 2016-11-13 19:00 | NUR ---
MS RN OPENING NOTES PATIENT IN BED, ALERT, ON O2 VIA NC AT 4 LPM, 02 SAT 97% BREATHING EVEN AND UNLABORED. NO S/S OF DISTRESS. CALL LIGHT WITHIN EASY TO REACH. ON LOW BED TO ENSURE SAFETY, WILL CONTINUE TO MONITOR PT.
--- NOTE | 2016-11-13 21:05 | NUR ---
ZOSYN 2.25G IV IN D5W 50 ML ADMINISTER IN RIGHT UPPER ARM G 24 NOT IN LEFT FOREARM
[2016-11-13] MEDS: MIRTAZAPINE 15 MG TABLET PO SCH (21:06)
--- NOTE | 2016-11-13 22:05 | NUR ---
PATIENT RECEIVED ATB ZOSYN IV NO A/R NOTED 50 ML IN THE RIGHT UPPER ARM IV
[2016-11-14] MEDS: PIPERACILLIN /TAZOBACTAM 2.25 G in IV D5W 50 ML IV SCH ×2 (04:12→12:27)
--- NOTE | 2016-11-14 04:12 | NUR ---
ZOSYN 2.25G IV AGAIN IN D5W 50 ML ADMINISTER IN RIGHT UPPER ARM G 24 NOT IN LEFT FOREARM
--- NOTE | 2016-11-14 05:12 | NUR ---
PATIENT RECEIVED ATB ZOSYN IV NO A/R NOTED 50 ML IN THE RIGHT UPPER ARM IV
--- NOTE | 2016-11-14 06:28 | NUR ---
MS RN CLOSING NOTES: PATIENT IN BED ASLEEP BUT EASILY AWAKEN ALERT AND ORIENTED X 3. ABLE TO MAKE NEEDS KNOWN SELF TO OTHERS, ON O2 VIA NC AT 3 LPM, O2 SAT AT 97%. BREATHING EVEN AND UNLABORED. ON ATB WITH NO A/R NOTED, ALL ATB ZOSYN IV WAS GIVEN TO RIGHT UPPER ARM, TOLERATED WELL WITH NO A/R NOTED. GOOD SKIN CARE PROVIDED. R UPPER ARM G 24 INTACT NO S/S OF INFILTRATION NOTED, R EJ 18 IV CATHETER INTACT PATENT AND NO S/S OF INFILTRATION, NEEDS ATTENDED AND ANTICIPATED, NURSING CARE RENDERED, ON LOW BED AT ALL TIMES, CALL LIGHT WITHIN EASY TO REACH, SAFE HAZARD FREE ENVIRONMENT PROVIDED. NO ACUTE CHANGE IN CONDITION NOTED THROUGH SHIFT. WILL ENDORSE TO THE NEXT SHIFT CONTINUE PLAN OF CARE
[2016-11-14 07:01] LABS: EOSINOPHILS # (AUTO) 0.1 /CMM (0.0-0.7); EOSINOPHILS % (AUTO) 0.7 % (0.0-6.0); HEMATOCRIT 33 % (39-51); HEMOGLOBIN 10.8 g/dL (13.5-17.5); LYMPHOCYTES # (AUTO) 0.9 /CMM (0.8-4.8); MEAN CORPUSCULAR HEMOGLOBIN 28 PG (26.0-33.0); MEAN CORPUSCULAR HGB CONC 33 g/dl (31.0-36.0); MEAN CORPUSCULAR VOLUME 84 fL (80-96); MONOCYTES # (AUTO) 1.2 /CMM (0.1-1.30); MONOCYTES % (AUTO) 8.1 % (2.0-12.0); NEUTROPHILS # (AUTO) 12.2 /CMM (1.8-8.9); NEUTROPHILS % (AUTO) 85.2 % (43.0-81.0); PLATELET COUNT (AUTO) 153 /CMM (150-450); RDW COEFFICIENT OF VARIATION 22.3 (11.5-15.0); RED BLOOD CELL COUNT(AUTO) 3.91 MIL/uL (4.5-6.0); WHITE BLOOD COUNT (AUTO) 14.3 K/uL (4.3-11.0)
[2016-11-14 07:08] LABS: CALCIUM, SERUM 8.3 mg/dL (8.5-10.1); CARBON DIOXIDE 26 mmol/L (21-32); CHLORIDE 98 mmol/L (98-107); GLUCOSE 67 mg/dL (74-106); MAGNESIUM 2.2 mg/dL (1.8-2.4); PHOSPHORUS 4.6 mg/dL (2.5-4.9); POTASSIUM 4.8 mmol/L (3.5-5.1); SODIUM SERUM 137 mmol/L (136-145); UREA NITROGEN, BLOOD 62 mg/dL (7-18)
[2016-11-14 07:12] LABS: CREATININE 7.9 mg/dL (0.6-1.3)
--- NOTE | 2016-11-14 07:18 | NUR ---
MS RN OPENING NOTES PATIENT RECEIVED AWAKE IN BED IN ACUTE SIGNS OF DISTRESS. A/O X3, NO C/O PAIN OR DISCOMFORTS AT THIS TIME. ON O2 VIA NC AT 3LPM, BREATHING EVEN AND UNLABORED. IV ACCESS ON CHYNA G#24 INTACT AND PATENT. PT HAS LFA FISTULA AND LCW HD CATHETER. CALL LIGHT WITHIN EASY TO REACH OF PT. BED LOW AND LOCKED FOR SAFETY. WILL CONTINUE TO MONITOR PT ACCORDINGLY.
[2016-11-14 08:00] VITALS: BP_SYST 141; BP_DIAS 59; BP_DIAS 69
[2016-11-14] MEDS: predniSONE 5 MG TABLET PO SCH ×2 (09:11→17:07)
[2016-11-14] MEDS: SEVELAMER CARBONATE 800 MG TABLET PO SCH ×3 (09:11→17:08)
[2016-11-14] MEDS: VIT B CMPLX 3/FA/VIT C/BIOTIN 1 TAB TABLET PO SCH (09:11)
[2016-11-14] MEDS: CALCIUM CARB 600MG /VIT D 1 EACH TABLET PO SCH ×2 (09:12→17:07)
[2016-11-14] MEDS: METOPROLOL TARTRATE 50 MG TABLET PO SCH ×2 (09:12→17:08)
[2016-11-14] MEDS: NIFEdipine (10MG) 10 MG CAPSULE PO SCH ×2 (09:13→17:09)
--- NOTE | 2016-11-14 10:14 | NUR ---
RN NOTES DR MCCARTHY CAME AND VISITED PT WITH ORDER TO DO CBC TODAY, CHEST X-RAY TOMORROW MORNING AND TO ENCOURAGE PT TO AMBULATE TOLERATED. WILL CONTINUE TO MONITOR.
[2016-11-14] MEDS: ASPIRIN 81 MG TAB.CHEW PO SCH (11:07)
[2016-11-14 12:38] LABS: EOSINOPHILS % (AUTO) 0.2 % (0.0-6.0); HEMATOCRIT 31 % (39-51); HEMOGLOBIN 9.8 g/dL (13.5-17.5); LYMPHOCYTES # (AUTO) 0.7 /CMM (0.8-4.8); LYMPHOCYTES % (AUTO) 4.6 % (20.0-44.0); MEAN CORPUSCULAR HEMOGLOBIN 27 PG (26.0-33.0); MEAN CORPUSCULAR HGB CONC 32 g/dl (31.0-36.0); MEAN CORPUSCULAR VOLUME 84 fL (80-96); MONOCYTES % (AUTO) 6.7 % (2.0-12.0); NEUTROPHILS # (AUTO) 12.9 /CMM (1.8-8.9); NEUTROPHILS % (AUTO) 88.5 % (43.0-81.0); PLATELET COUNT (AUTO) 148 /CMM (150-450); RDW COEFFICIENT OF VARIATION 22.3 (11.5-15.0); RED BLOOD CELL COUNT(AUTO) 3.67 MIL/uL (4.5-6.0); WHITE BLOOD COUNT (AUTO) 14.5 K/uL (4.3-11.0)
[2016-11-14] MEDS: CEFTRIAXONE 1 G in IV D5W 50 ML IV SCH (14:53)
[2016-11-14 16:00] VITALS: BP 125/65
--- NOTE | 2016-11-14 17:58 | NUR ---
RN NOTES PT AMBULATES X 2 WITH ASSISTANCE AROUND HIS ROOM THIS AFTERNOON. WILL CONTINUE TO ENCOURAGE HIM TO AMBULATE TOLERATED.
--- NOTE | 2016-11-14 18:44 | NUR ---
MS RN CLOSING NOTES PATIENT IN BED WITH DAUGHTER AT BEDSIDE. A/O X3, NO C/O PAIN DURING SHIFT AND NO SIGNIFICANT CHANGES NOTED THROUGHOUT THE DAY. REMAINS ON SUPPLEMENTAL O2 VIA NC AT 3LPM, BREATHING EVEN AND UNLABORED. DUE MEDS GIVEN ORDERED AND TOLERATED. IV ACCESS ON CHYNA G#24 AND RIGHT EJ G#18 INTACT AND PATENT, FLUSHING WELL. PT HAS LFA FISTULA THAT IS NOT BEING USE AND LCW PERMA-CATHETER FOR HD. KEPT CALL LIGHT WITHIN EASY TO REACH OF PT. BED LOW AND LOCKED. ALL NEEDS AND CARE PROVIDED WELL. WILL ENDORSED TO FITNESS INSTRUCTOR NURSE FOR SHANNAN.
--- NOTE | 2016-11-14 19:36 | NUR ---
MS RN INITIAL NOTES PT IS IN THE CHAIR AT BEDSIDE WITH 3L NC, TOLERATING WELL. AT BEDSIDE. NO SIGNS OF SOB OR DISTRESS. IV AND AV FISTULA, LCW PERMA-CATH INTACT AND PATENT. BED IS IN LOW AND LOCKED POSITION, CALL LIGHT IS WITHIN REACH. WILL CONTINUE TO MONITOR PT
[2016-11-14 20:00] VITALS: BP 127/53
[2016-11-14 20:06] VITALS: BP 127/53
[2016-11-14] MEDS: MIRTAZAPINE 15 MG TABLET PO SCH (21:01)
--- NOTE | 2016-11-14 23:55 | NUR ---
PT REQUEST SLEEPING AID. DR SANTIAGO SUPERVISOR COLD ROLLING WAS NOTIFIED. ORDER FOR 15 MG RESTORIL WAS GIVEN AND CARRIED OUT. WILL CONTINUE TO MONITOR PT
[2016-11-15] MEDS ORDERED: TEMAZEPAM 15 MG CAPSULE PO ONE (00:03)
[2016-11-15] MEDS ORDERED: TEMAZEPAM 15 MG CAPSULE ONE ×2 (00:06→22:04)
--- NOTE | 2016-11-15 06:35 | NUR ---
MS RN CLOSING NOTES PT IS RESTING IN BED, A/O X3 ABLE TO MAKE NEEDS KNOWN. NO SIGNS OF DISTRESS OR SOB. NC WITH 3L SATING AT 95%. IV ACCESS IS INTACT AND PATENT. PT IS EASILY AROUSED POST RESTORIL. ALL NEEDS WERE ANTICIPATED AND MET. BED IS IN LOW AND LOCKED POSITION, CALL LIGHT IS WITHIN REACH WILL ENDORSE TO DAY SHIFT
[2016-11-15 07:29] LABS: CALCIUM, SERUM 8.3 mg/dL (8.5-10.1); CARBON DIOXIDE 25 mmol/L (21-32); CHLORIDE 96 mmol/L (98-107); GLUCOSE 107 mg/dL (74-106); POTASSIUM 5.5 mmol/L (3.5-5.1); SODIUM SERUM 135 mmol/L (136-145); UREA NITROGEN, BLOOD 79 mg/dL (7-18); VANCOMYCIN,TROUGH 19 ug/ml (12-20)
--- NOTE | 2016-11-15 07:30 | NUR ---
RN MS NOTES PT IN BED, AWAKE, ALERT AND ORIENTED, NO COMPLAINT OF PAIN OR ANY DISCOMFORT, BREATHING PATTERN NORMAL, CALL LIGHT WITHIN REACH, PLAN OF CARE DISCUSSED WITH PT, VERBALIZED UNDERSTANDING, KEPT WARM AND COMFORTABLE IN BED.
[2016-11-15 07:32] LABS: CREATININE 9.5 mg/dL (0.6-1.3)
[2016-11-15 08:00] VITALS: BP 150/62
[2016-11-15] MEDS: METOPROLOL TARTRATE 50 MG TABLET PO SCH ×2 (08:28→17:36)
[2016-11-15] MEDS: predniSONE 5 MG TABLET PO SCH ×2 (08:28→17:36)
[2016-11-15] MEDS: CALCIUM CARB 600MG /VIT D 1 EACH TABLET PO SCH ×2 (08:28→17:36)
[2016-11-15] MEDS: NIFEdipine (10MG) 10 MG CAPSULE PO SCH ×2 (08:28→17:35)
[2016-11-15] MEDS: ASPIRIN 81 MG TAB.CHEW PO SCH (08:28)
[2016-11-15] MEDS: VIT B CMPLX 3/FA/VIT C/BIOTIN 1 TAB TABLET PO SCH (08:29)
[2016-11-15] MEDS: SEVELAMER CARBONATE 800 MG TABLET PO SCH ×3 (08:29→17:33)
--- NOTE | 2016-11-15 12:04 | NUR ---
RN MS NOTES PT IN BED, AWAKE, ALERT AND ORIENTED, FAMILY AT BEDSIDE, NO COMLPLAINT OF PAIN, BREATHING PATTERN NORMAL, ON O2 AT 3LPM VIA NASAL CANULA, ABLE TO AMBULATE WITH STANDBY ASSIST, TOLERATING CURRENT DIET WELL.
[2016-11-15] MEDS ORDERED: ALTEPLASE CATHFLO 2 MG/VIAL IV ONE (15:30)
[2016-11-15 16:00] VITALS: BP 138/63
[2016-11-15] MEDS: CEFTRIAXONE 1 G in IV D5W 50 ML IV SCH (16:48)
[2016-11-15] MEDS: VANCOMYCIN 500 MG in IV D5W 100 ML IV PRN (17:32)
--- NOTE | 2016-11-15 18:24 | NUR ---
RN MS NOTES PT IN BED, AWAKE, ALERT AND ORIENTED, DENIES PAIN, NOT IN DISTRESS, COMPLETED DIALYSIS TODAY, TOLERATED WELL, PT EATING DINNER ASSISTED BY FAMILY MEMBERS, PM CARE RENDERED, ALL NEEDS ATTENDED.
--- NOTE | 2016-11-15 19:30 | NUR ---
MS/RN NOTES PT ASLEEP, EASILY AROUSABLE TO NAME. ON 3LPM O2 VIA NC, BREATHING EVEN AND UNLABORED. NO S/S OF DISTRESS NOTED. PT HAD HD TODAY. IV TO CHYNA PATENT AND INTACT. LCW PERMACATH AND LFA AVF SHUNT NOTED. BED IN LOW/LOCKED POSITION WITH CALL LIGHT IN REACH. SIDE RAILS UPX2. WILL CONTINUE TO MONITOR
[2016-11-15 20:00] VITALS: BP 121/56
[2016-11-15] MEDS: MIRTAZAPINE 15 MG TABLET PO SCH (21:09)
--- NOTE | 2016-11-15 21:35 | NUR ---
MS/RN NOTES SPOKE TO DR. TERRY REGARDING PT WANTING SLEEPING AIDE. ORDERED RESTORIL 15MG PRN HS SLEEP. ORDERS NOTED AND CARRIED OUT.
[2016-11-15] MEDS ORDERED: TEMAZEPAM 7.5 MG CAPSULE ONE (21:49)
[2016-11-15] MEDS ORDERED: TEMAZEPAM 15 MG CAPSULE PO PRN (22:00)
--- NOTE | 2016-11-15 22:30 | NUR ---
MS/RN NOTES PT REQUESTING FOR HOME OXYGEN UPON DISCHARGE. ORDERED CASE MANAGEMENT CONSULT TO FOLLOW UP.
[2016-11-16] MEDS ORDERED: LEVOFLOXACIN (500MG) 500 MG TABLET ONE (05:18)
[2016-11-16] MEDS ORDERED: LEVOFLOXACIN (500MG) 500 MG TABLET PO SCH (06:00)
--- NOTE | 2016-11-16 07:00 | NUR ---
MS/RN CLOSING NOTES PT ASLEEP, EASILY AROUSABLE TO NAME. A/OX3. REMAINS ON 3LPM O2 VIA NC, BREATHING EVEN AND UNLABORED. NO S/S OF DISTRESS. SOB NOTED UPON EXERTION. WALKED IN HALLWAY DURING BEGINNING OF SHIFT. IV TO LEJ PULLED OUT. MADE PT COMFORTABLE THROUGHOUT SHIFT. ALL NEEDS MET AND ATTENDED. BED IN LOW/LOCKED POSITION, CALL LIGHT IN REACH, WITH SIDE RAILS UPX2.
[2016-11-16 07:15] LABS: CALCIUM, SERUM 8.3 mg/dL (8.5-10.1); CARBON DIOXIDE 22 mmol/L (21-32); CHLORIDE 98 mmol/L (98-107); GLUCOSE 218 mg/dL (74-106); POTASSIUM 5.7 mmol/L (3.5-5.1); SODIUM SERUM 135 mmol/L (136-145); UREA NITROGEN, BLOOD 68 mg/dL (7-18); VANCOMYCIN,TROUGH 24 ug/ml (12-20)
[2016-11-16 07:36] LABS: CREATININE 8.5 mg/dL (0.6-1.3)
--- NOTE | 2016-11-16 07:53 | NUR ---
RN OPENING NOTES PATIENT AWAKE AND ORIENTED, RESTING COMFORTABLY IN BED AT THIS TIME. PATIENT HAS NO COMPLAINT OF PAIN AT THIS TIME. NO S/S OF SOB. NO ACUTE DISTRESS. RESPIRATIONS APPEAR EVEN AND UNLABORED. SATURATING ADEQUATELY AT 100% WITH O2 RUNNING AT 3L. THERE IS NO IV ACCESS AT THIS TIME. ALL ACCESS PULLED OUT DURING WEAPONS OFFICER. CALL LIGHT WITHIN REACH OF PATIENT. BED LOCKED IN THE LOWEST POSITION. WILL CONTINUE OT MONITOR PATIENT THROUGHOUT SHIFT.
[2016-11-16 08:17] VITALS: BP 167/68
[2016-11-16] MEDS: SEVELAMER CARBONATE 800 MG TABLET PO SCH ×2 (08:49→13:59)
[2016-11-16] MEDS: ASPIRIN 81 MG TAB.CHEW PO SCH (08:49)
[2016-11-16 08:50] VITALS: BP 167/68
[2016-11-16] MEDS: CALCIUM CARB 600MG /VIT D 1 EACH TABLET PO SCH (08:50)
[2016-11-16] MEDS: METOPROLOL TARTRATE 50 MG TABLET PO SCH (08:50)
[2016-11-16] MEDS: VIT B CMPLX 3/FA/VIT C/BIOTIN 1 TAB TABLET PO SCH (08:50)
[2016-11-16] MEDS: predniSONE 5 MG TABLET PO SCH (08:50)
[2016-11-16] MEDS: NIFEdipine (10MG) 10 MG CAPSULE PO SCH (08:50)
--- NOTE | 2016-11-16 16:11 | NUR ---
RN NOTES PATIENT D/C'D HOME WITH PORTABLE OXYGEN RUNNING AT 3L. PATIENT D/C'D IN STABLE CONDITION. D/C INSTRUCTIONS GIVEN TO PATIENT. PATIENT D/C'D WITH . PATIENT TO CONTINUE MEDICATIONS AT HOME PER DR. MCCARTHY. CONTINUE PO ANTIBIOTICS CEPHALEX PRESCRIBED. PATIENT TO FOLLOW UP WITH PCP. IN THE EVENT OF AN EMERGENCY, RETURN TO EMERGENCY ROOM.
--- NOTE | 2016-11-16 16:17 | NUR ---
RN NOTES PATIENT REFUSED PHOTOS ON D/C. PATIENT STATED THAT IT HAD ALREADY BEEN DONE A FEW DAYS AGO.
[2016-11-17] MEDS ORDERED: LEVOFLOXACIN (250MG) 250 MG TABLET PO SCH (06:00)
== END 2016-11-16 15:55 | disposition home health service (06) | DRG 871 ==
LOC: ER 11:19 → TELE 13:15 → MED 11-13 08:15
PROVIDERS: ADMIT Internal Medicine Nephrology; ATTEND Internal Medicine Nephrology
PROC: 0W993ZZ Drainage of Right Pleural Cavity, Percutaneous Approach (ICD-10-PCS; principal; 2016-11-12)
PROC: 5A1D60Z (ICD-10-PCS; 2016-11-12)
DX: A41.9 Sepsis, unspecified organism (principal); G93.40 Encephalopathy, unspecified; I21.4 Non-ST elevation (NSTEMI) myocardial infarction; J18.9 Pneumonia, unspecified organism; J96.01 Acute respiratory failure with hypoxia; N18.6 End stage renal disease; I50.43 Acute on chronic combined systolic (congestive) and diastolic (congestive) heart failure; I13.2 Hypertensive heart and chronic kidney disease with heart failure and with stage 5 chronic kidney disease, or end stage renal disease; J90 Pleural effusion, not elsewhere classified; N39.0 Urinary tract infection, site not specified; C79.51 Secondary malignant neoplasm of bone; J98.11 Atelectasis; D64.9 Anemia, unspecified; Z87.891 Personal history of nicotine dependence; Z86.73 Personal history of transient ischemic attack (TIA), and cerebral infarction without residual deficits; Z98.61 Coronary angioplasty status; Z99.2 Dependence on renal dialysis; I25.10 Atherosclerotic heart disease of native coronary artery without angina pectoris; I48.0 Paroxysmal atrial fibrillation; I27.2 Other secondary pulmonary hypertension; R94.5 Abnormal results of liver function studies; N13.9 Obstructive and reflux uropathy, unspecified; H91.93 Unspecified hearing loss, bilateral; K57.30 Diverticulosis of large intestine without perforation or abscess without bleeding; B95.2 Enterococcus as the cause of diseases classified elsewhere; B96.89 Other specified bacterial agents as the cause of diseases classified elsewhere; E11.22 Type 2 diabetes mellitus with diabetic chronic kidney disease; E78.5 Hyperlipidemia, unspecified; E86.9 Volume depletion, unspecified; K74.60 Unspecified cirrhosis of liver; Z79.899 Other long term (current) drug therapy; C61 Malignant neoplasm of prostate; R65.20 Severe sepsis without septic shock
CPT/HCPCS: 36415; 36600; 70450-TC; 71010-TC; 72128-TC; 76942-TC; 78306-TC; 80048-TC; 80053-TC; 80076-TC; 80202-TC; 81000-TC; 82728-TC; 82803-TC; 82962-TC; 83540-TC; 83605-TC; 83615-TC; 83735-TC; 84100-TC; 84153-TC; 84154-TC; 84484-TC; 85025-TC; 85730-TC; 87040-TC; 87070-TC; 87081-TC; 87086-TC; 87186-TC; 88312-TC; 88342; 90935-TC; 94799-TC; A4606; A9503; J0696; J0885; J1644; J2543; J2997; J3370; J3490; J7050; J7060; J7512; Z7610

== ENCOUNTER 2016-11-30 13:33 | Inpatient (IN) | payer MEDICARE, MEDICAID ==
[~2016-11-30] VITALS: Ht 167.6 cm; Wt 52.2 kg
[~2016-11-30 13:33] MED LIST changes: -RENVELA-SEVELAMER PO; +SEVE800T8 PO
--- NOTE | 2016-11-30 13:38 | NUR ---
STATES "MY BLOOD SUGAR IS LOW" 59 @1310. NO DROOLING, NO CHANGE IN MENTAL STATUS
[2016-11-30 14:46] LABS: BASOPHILS # (AUTO) 0.2 /CMM (0.0-0.2); BASOPHILS % (AUTO) 1.4 % (0.0-2.0); EOSINOPHILS # (AUTO) 0.2 /CMM (0.0-0.7); HEMATOCRIT 29 % (39-51); HEMOGLOBIN 9.1 g/dL (13.5-17.5); LYMPHOCYTES # (AUTO) 1.2 /CMM (0.8-4.8); LYMPHOCYTES % (AUTO) 7.9 % (20.0-44.0); MEAN CORPUSCULAR HEMOGLOBIN 28 PG (26.0-33.0); MEAN CORPUSCULAR HGB CONC 32 g/dl (31.0-36.0); MEAN CORPUSCULAR VOLUME 90 fL (80-96); MONOCYTES # (AUTO) 2.1 /CMM (0.1-1.30); MONOCYTES % (AUTO) 13.1 % (2.0-12.0); NEUTROPHILS % (AUTO) 76.6 % (43.0-81.0); PLATELET COUNT (AUTO) 181 /CMM (150-450); RDW COEFFICIENT OF VARIATION 22.5 (11.5-15.0); RED BLOOD CELL COUNT(AUTO) 3.21 MIL/uL (4.5-6.0); WHITE BLOOD COUNT (AUTO) 15.7 K/uL (4.3-11.0)
[2016-11-30 14:55] LABS: INR 0.93 (0.87-1.13); PROTHROMBIN TIME 9.7 SECS (9.5-12.7)
[2016-11-30 14:58] LABS: ALANINE AMINOTRANSFERASE 28 U/L (12-78); ALBUMIN 2.5 g/dL (3.4-5.0); ALKALINE PHOSPHATASE 62 U/L (46-116); ASPARTATE AMINOTRANSFERASE 22 U/L (15-37); BILIRUBIN,DIRECT 0.1 mg/dL (0.0-0.2); BILIRUBIN,TOTAL 0.4 mg/dL (0.2-1.0); CALCIUM, SERUM 8.5 mg/dL (8.5-10.1); CARBON DIOXIDE 25 mmol/L (21-32); CHLORIDE 100 mmol/L (98-107); GLUCOSE 55 mg/dL (74-106); POTASSIUM 3.6 mmol/L (3.5-5.1); SODIUM SERUM 139 mmol/L (136-145); TOTAL PROTEIN, SERUM 6.2 g/dL (6.4-8.2)
[2016-11-30 14:59] LABS: CREATININE 10.2 mg/dL (0.6-1.3); UREA NITROGEN, BLOOD 90 mg/dL (7-18)
[2016-11-30 15:00] LABS: TROPONIN I 0.124 ng/mL (0.00-0.056)
[2016-11-30] MEDS ORDERED: CEPH250C PO (15:31)
--- NOTE | 2016-11-30 15:37 | NUR ---
PATIENT WILL BE ADMITTED INTO TELE ROOM 314-1.
--- NOTE | 2016-11-30 15:45 | NUR ---
VERBAL ORDER TORIBIO HARRIS [address] BULMARO ZALDIVAR Addendum: 11/30/16 at 1636 by SEPIDEH MEDS NOT GIVEN WASTED MD ORDERED SOLUMEDROL IVP
[2016-11-30] MEDS ORDERED: DEXTROSE 50%-WATER 50 ML DISP.SYRIN ONE (15:48)
--- NOTE | 2016-11-30 15:51 | NUR ---
CALLED [facility], DR CHAMBERLAIN ON THE PHONE WITH DR MCCARTHY.
[2016-11-30] MEDS ORDERED: DEXTROSE 50%-WATER 50 ML DISP.SYRIN IVP ONE (16:00)
[2016-11-30] MEDS ORDERED: DEXTROSE 50%-WATER 50 ML DISP.SYRIN IV ONE (16:00)
[2016-11-30] MEDS ORDERED: HYDROCORTISONE SOD SUCCINATE 100 MG/2 ML VIAL ONE (16:00)
[2016-11-30] MEDS ORDERED: PIPERACILLIN /TAZOBACTAM 2.25 G in IV D5W 50 ML IV ONE (16:00)
[2016-11-30] MEDS ORDERED: VANCOMYCIN 1 GM in IV D5W 250 ML IV ONE (16:00)
--- NOTE | 2016-11-30 16:12 | NUR ---
GAVE REPORT TO TACO MCKEON TELEMTRY DR MCCARTHY. ADMITTING DX HYPOGLYCEMIA . TRANSFER VIA ACLS PROTOCOL
[2016-11-30] MEDS ORDERED: methylPREDNISolone SOD SUCC 125 MG/2ML VIAL ONE (16:26)
--- NOTE | 2016-11-30 16:35 | NUR ---
SHIPPING SERVICES SALES REPRESENTATIVE NOTES RECEIVED PT VIA ESPINOZA FROM ER, DX HYPOGLYCEMIA BY DR. Jami MCCARTHY, AAO X4, ACCOMPANIED BY AND DAUGHTER, ON RA, NOT IN ANY DISTRESS, RESPIRATION UNLABORED, TELEMETRY READS SR HR 95, DENIES ANY CHEST PAIN OR DISCOMFORT AT THIS TIME. RT EJ GAUGE 20, FLUSHES WELL, SITE CLEAR. AV SHUNT ON LEFT ARM BULGING, THRILL PRESENT. LCW HD CATH IN PLACE, CDI DRESSING. RENAL/1800ADA DIET, SEE NURSING FLOWSHEET FOR SKIN ISSUE. UNIT ORIENTATION DONE AND USE OF CALL LIGHT, BED LOW LOCKED, SR UP X 2, WILL CONT TO MONITOR.
[2016-11-30 16:40] VITALS: BP 178/74
[2016-11-30] MEDS ORDERED: BLOOD SUGAR DIAGNOSTIC 1 EACH STRIP IN SCH (17:00)
[2016-11-30] MEDS ORDERED: INSULIN REGULAR, HUMAN 100 UNIT/ML 3 ML VIAL SQ PRN (17:00)
[2016-11-30] MEDS ORDERED: DEXTROSE 50%-WATER 50 ML DISP.SYRIN IV PRN (17:00)
[2016-11-30] MEDS: BLOOD SUGAR DIAGNOSTIC 1 EACH STRIP IN SCH ×2 (17:27→21:11)
--- NOTE | 2016-11-30 17:27 | NUR ---
SURVEYOR GEOPHYSICAL PROSPECTING NOTES ACCUCHECK. BS 134 MG/DL. NO INSULIN COVERAGE GIVEN.
--- NOTE | 2016-11-30 18:49 | NUR ---
INCINERATOR ATTENDANT NOTES PT RESTING, NOT IN ANY DISTRESS, HAD DINNER ASSISTED BY AND DAUGHTER, NO SIGNIFICANT CHANGE IN CONDITION, ALL NEEDS MET. WILL ENDORSE TO NEXT SHIFT FOR SHANNAN. KRISTI HD NURSE WILL COME AT 1930.
[2016-11-30] MEDS ORDERED: FEE PK DOSING 1 MIN EA MC ONE (18:54)
[2016-11-30] MEDS ORDERED: TEMAZEPAM 15 MG CAPSULE PO PRN (19:00)
[2016-11-30] MEDS ORDERED: IV 10% DEXTROSE 1,000 ML IV PRN (19:30)
[2016-11-30 20:00] VITALS: BP 161/72
--- NOTE | 2016-11-30 20:04 | NUR ---
RATING CLERK INITIAL NOTES RECEIVED REPORT FROM DAY SHIFT. PT RESTING IN BED RECEIVING DIALYSIS WITH SHOT HOLE SHOOTER AT BEDSIDE. PT IS A/O X3, ABLE TO MAKE NEEDS KNOW. ON RA BREATHING EVENLY AND UNLABORED. TELE MONITOR SHOWS SR 90. IV ACCESS IN REJ INTACT. BED IS IN LOW AND LOCKED POSITION, CALL LIGHT IS WITHIN REACH. WILL CONTINUE TO MONITOR PT
[2016-11-30] MEDS: SIMVASTATIN 20 MG TABLET PO SCH (21:11)
[2016-11-30] MEDS: MIRTAZAPINE 15 MG TABLET PO SCH (21:11)
[2016-12-01] VITALS (7 sets, daily range): BP systolic 109–154; BP diastolic 56–70
[2016-12-01] MEDS: BLOOD SUGAR DIAGNOSTIC 1 EACH STRIP IN SCH ×6 (00:41→21:09)
[2016-12-01] MEDS: PIPERACILLIN /TAZOBACTAM 2.25 G in IV D5W 50 ML IV SCH ×3 (04:05→20:02)
--- NOTE | 2016-12-01 04:30 | NUR ---
ACCU CHECK PT BG WAS 145- HELD INSULIN. PT HAD A SNACK AN HOUR PRIOR. WILL CONTINUE TO MONITOR FOR S/S OF HYPO/HYPER GLYCEMIA
[2016-12-01 06:42] LABS: EOSINOPHILS % (AUTO) 0.1 % (0.0-6.0); HEMATOCRIT 26 % (39-51); HEMOGLOBIN 8.6 g/dL (13.5-17.5); LYMPHOCYTES # (AUTO) 0.9 /CMM (0.8-4.8); LYMPHOCYTES % (AUTO) 6.8 % (20.0-44.0); MEAN CORPUSCULAR HEMOGLOBIN 29 PG (26.0-33.0); MEAN CORPUSCULAR HGB CONC 33 g/dl (31.0-36.0); MEAN CORPUSCULAR VOLUME 89 fL (80-96); MONOCYTES # (AUTO) 1.3 /CMM (0.1-1.30); MONOCYTES % (AUTO) 9.8 % (2.0-12.0); NEUTROPHILS # (AUTO) 10.9 /CMM (1.8-8.9); NEUTROPHILS % (AUTO) 83.3 % (43.0-81.0); PLATELET COUNT (AUTO) 112 /CMM (150-450); RDW COEFFICIENT OF VARIATION 23.3 (11.5-15.0); RED BLOOD CELL COUNT(AUTO) 2.96 MIL/uL (4.5-6.0); WHITE BLOOD COUNT (AUTO) 13.1 K/uL (4.3-11.0)
[2016-12-01 06:44] LABS: CALCIUM, SERUM 7.8 mg/dL (8.5-10.1); GLUCOSE 159 mg/dL (74-106); UREA NITROGEN, BLOOD 71 mg/dL (7-18)
--- NOTE | 2016-12-01 07:03 | NUR ---
MANUFACTURING DIRECTOR CLOSING NOTES PT IS RESTING IN BED, NO SIGNS OF SOB OR DISTRESS. BREATHING EVENLY AND UNLABORED ON ROOM AIR. BLOOD SUGAR WAS MONITORED THROUGHOUT THE NIGHT. ADVISED PT OF HOME MEDS OUR PHARMACY IS MISSING AND ASKED IF COULD BRING THEM IN TODAY. PT REFUSED AM CARE. ALL NEEDS WERE ANTICIPATED AND MET. BED IS IN LOW AND LOCKED POSITION, CALL LIGHT WITHIN REACH.
[2016-12-01 07:07] LABS: CARBON DIOXIDE 25 mmol/L (21-32); CHLORIDE 98 mmol/L (98-107); POTASSIUM 4.8 mmol/L (3.5-5.1); SODIUM SERUM 136 mmol/L (136-145)
[2016-12-01 07:29] LABS: CREATININE 8.3 mg/dL (0.6-1.3)
--- NOTE | 2016-12-01 07:30 | NUR ---
TELE/RN OPENING NOTES SIGN ABOVE BED - LEFT ARM, NO BP AND BLOOD DRAW DUE TO LEFT ARTERIOVENOUS FISTULA SHUNT. PT. IS IN BED AWAKE, A&OX4. TELE MONITOR READING SINUS RHYTHM 86 BPM. NO SOB, BREATHING ON ROOM AIR UNLABORED. NO S/S OF ACUTE DISTRESS. IV FLUIDS RUNNING AT 55 ML/HR. NO S/S OF HYPOGLYCEMIA. PT. HAS LEFT CHEST WALL CATHETER. HEMODIALYSIS ON 11/30 PERFORMED WITH 500 ML OUTPUT. LAST BLOOD SUGAR CHECK AT 0500 WAS 145 MG/DL. BED IS IN LOW POSITION, 2 SIDE RAILS UP, INSTRUCTED PT. TO USE CALL LIGHT FOR ASSISTANCE, AND ALL NEEDS MET. WILL CONTINUE TO ASSESS AND MONITOR.
[2016-12-01] MEDS ORDERED: VANCOMYCIN POST DIALYSIS 500MG IV PRN ×2 (08:00)
[2016-12-01] MEDS: ASPIRIN 81 MG TAB.CHEW PO SCH (09:16)
[2016-12-01] MEDS: CALCIUM CARB 250MG /VITAMIN D 1 UDTAB PO SCH (09:16)
[2016-12-01] MEDS: METOPROLOL TARTRATE 50 MG TABLET PO SCH ×2 (09:17→17:00)
[2016-12-01] MEDS: VIT B CMPLX 3/FA/VIT C/BIOTIN 1 TAB TABLET PO SCH (09:17)
[2016-12-01] MEDS: predniSONE 10 MG TABLET PO SCH ×2 (09:17→17:13)
[2016-12-01] MEDS: NIFEdipine (10MG) 10 MG CAPSULE PO SCH ×2 (09:19→17:00)
[2016-12-01] MEDS: SEVELAMER CARBONATE 800 MG TABLET PO SCH ×3 (09:19→17:13)
--- NOTE | 2016-12-01 11:38 | NUR ---
TELE/RN NOTES ASKED PT. ABOUT HIS HOME MEDICATION, PT. SAID THAT HIS WILL BRING IT TODAY WHEN SHE VISITS. WILL FOLLOW UP WITH PT.'S .
[2016-12-01] MEDS ORDERED: DEXTROSE 50%-WATER 50 ML DISP.SYRIN IV PRN (12:00)
--- NOTE | 2016-12-01 13:43 | NUR ---
TELE/RN NOTES PT.'S BROUGHT HOME MEDICATION ZYPREXIA FOR PROSTATE CANCER. MEDICATION WAS BROUGHT TO PHARMACY. Addendum: 12/01/16 at 1513 by EL VALENCIA RN CORRECTION HOME MEDICATIONS BROUGHT WAS ZYTIGA 250 MG TABS.
--- NOTE | 2016-12-01 15:52 | NUR ---
TELE/RN NOTES NEW VERBAL ORDER, OKAY TO DISCONTINUE IV FLUIDS PER SHEKHAR MONAE HOLLOW WARE MAKER.
[2016-12-01] MEDS: BENZONATATE 100 MG CAPSULE PO PRN ×2 (16:19→20:02)
--- NOTE | 2016-12-01 16:23 | NUR ---
TELE/RN NOTES PT. REQUESTED MEDICATION FOR COUGH, PT. WAS OFFERED AND THEN GIVEN COUGH MEDICATION.
[2016-12-01] MEDS: ZYTIGA 250 MG PO SCH (17:13)
[2016-12-01] MEDS: INSULIN REGULAR, HUMAN 100 UNIT/ML 3 ML VIAL SQ PRN ×2 (17:19→21:13)
--- NOTE | 2016-12-01 18:42 | NUR ---
TELE/RN CLOSING NOTES SIGN ABOVE BED - LEFT ARM, NO BP AND BLOOD DRAW DUE TO LEFT ARTERIOVENOUS FISTULA SHUNT. PT. IN BED SLEEPING EASILY AWAKENS, A&OX4, AND HEAD OF BED UP. TELE MONITOR READING SINUS RHYTHM 80 BPM. NO SOB, BREATHING ON ROOM AIR UNLABORED. NO S/S OF ACUTE DISTRESS. IV ACCESS ON RIGHT EXTERNAL JUGULAR VEIN. NO S/S OF HYPOGLYCEMIA. PT. HAS LEFT CHEST WALL CATHETER. BED IN LOW POSITION, 2 SIDE RAILS UP, INSTRUCTED PT. TO USE CALL LIGHT FOR ASSISTANCE, AND ALL NEEDS MET.
[2016-12-01] MEDS: HEPARIN SODIUM, PORCINE 5000 UNITS/1 ML VIAL SQ SCH (20:05)
--- NOTE | 2016-12-01 20:20 | NUR ---
EMPLOYEE RELATIONS ADMINISTRATOR INITIAL NOTES PT IS IN BED RESTING WITH FAMILY AT BEDSIDE, A/O X3 ABLE TO MAKE NEEDS KNOWN. SIGN ABOVE BED NOT TO PERFORM BLOOD DRAW OR BP ON LEFT ARM DUE TO AV SHUNT. NO SIGNS OF SOB OR DISTRESS, ON ROOM AIR BREATHING EVENLY AND UNLABORED. IV ACCES INTACT AND PATENT, SALINE FLUSH ON HL. COMPLAINTS OF A COUGH THAT'S BOTHERING HIM, PRN MED TO BE ADMINISTERED. WILL CONTINUE TO MONITOR FOR SIGNS OF HYPO/HYPER GLYCEMIA. BED IS IN LOW AND LOCKED POSITION, CALL LIGHT WITHIN REACH. WILL CONTINUE TO MONITOR PT
[2016-12-01] MEDS: SIMVASTATIN 20 MG TABLET PO SCH (21:10)
[2016-12-01] MEDS: MIRTAZAPINE 15 MG TABLET PO SCH (21:10)
--- NOTE | 2016-12-01 21:30 | NUR ---
DISHWASHING MACHINE REPAIRER NOTES NOTED PT HAD SWELLING IN LEFT ARM, ICE PACK WAS GIVEN TO PT. WILL CONTINUE TO MONITOR
--- NOTE | 2016-12-01 22:30 | NUR ---
CUSTOMER SUPPORT ASSISTANT NOTES SWELLING IN LEFT ARM HAS GONE DOWN
--- NOTE | 2016-12-01 23:56 | NUR ---
QUALITY REVIEW TRAINER NOTES PT REQUESTED A SLEEPING AID. HE MENTIONED THAT ON HIS PRIOR VISIT HE WAS HARDER TO AROUSE ON THE 30MG DOSE, PT REQUESTED ONLY HALF THE DOSE. 15 MG OF RESTORIL WAS ADMINISTERED WILL CONTINUE TO MONITOR PT
[2016-12-02] VITALS: BP 138/59
--- NOTE | 2016-12-02 00:11 | NUR ---
FOUNDER CEO & PRESIDENT NOTES PT O2 AT 91%, PLACED HIM ON 2L NC. WILL CONTINUE TO MONITOR PT
[2016-12-02 04:00] VITALS: BP 143/69
[2016-12-02] MEDS: PIPERACILLIN /TAZOBACTAM 2.25 G in IV D5W 50 ML IV SCH ×2 (04:02→13:27)
[2016-12-02 06:00] VITALS: BP 141/68
[2016-12-02] MEDS: INSULIN REGULAR, HUMAN 100 UNIT/ML 3 ML VIAL SQ PRN ×2 (06:31→11:43)
--- NOTE | 2016-12-02 06:40 | NUR ---
[facility] REAL ESTATE CLOSING NOTES PT IS SLEEPING IN BED, A/O X3. BREATHING EVENLY AND UNLABORED WITH O2 AT 2L VIA NC.NO SIGNS OF SOB OR DISTRESS. TELE MONITOR SHOWS SR 71. IV ACCESS INTACT AND PATENT. HD PLANNED FOR TODAY. ALL NEEDS WERE ANTICIPATED AND MET. BED IS IN LOW AND LOCKED POSITION, CALL LIGHT IS WITHIN REACH. WILL ENDORSE TO DAY SHIFT.
[2016-12-02 07:01] LABS: EOSINOPHILS # (AUTO) 0.1 /CMM (0.0-0.7); EOSINOPHILS % (AUTO) 0.6 % (0.0-6.0); HEMATOCRIT 29 % (39-51); HEMOGLOBIN 9.5 g/dL (13.5-17.5); LYMPHOCYTES # (AUTO) 1.1 /CMM (0.8-4.8); MEAN CORPUSCULAR HEMOGLOBIN 29 PG (26.0-33.0); MEAN CORPUSCULAR HGB CONC 33 g/dl (31.0-36.0); MEAN CORPUSCULAR VOLUME 88 fL (80-96); MONOCYTES # (AUTO) 0.6 /CMM (0.1-1.30); MONOCYTES % (AUTO) 5.4 % (2.0-12.0); NEUTROPHILS # (AUTO) 8.7 /CMM (1.8-8.9); PLATELET COUNT (AUTO) 147 /CMM (150-450); RDW COEFFICIENT OF VARIATION 22.6 (11.5-15.0); WHITE BLOOD COUNT (AUTO) 10.4 K/uL (4.3-11.0)
--- NOTE | 2016-12-02 07:05 | NUR ---
HIGHWAY CONSTRUCTION INSPECTOR NOTES PATIENT IN BED ALERT AND ORIENTED, ON O2 AT 2LPM VIA NC WITH SPO2 99%, NO DISTRESS NOTED, PATIENT IS WAITING TO SPEAK TO HIS ATTENDING MD, NO S/SX OF HYPO OR HYPERGLYCEMIA, PIV PATENT AND FLUSHES WELL, NEEDS ATTENDED AND ANTICIPATED, SAFETY MEASURES IN PLACED, CALL LIGHT WITHIN REACH, WILL CONTINUE TO MONITOR.
[2016-12-02] MEDS ORDERED: PANTOPRAZOLE 40 MG TABLET.DR PO SCH (07:30)
[2016-12-02] MEDS: BLOOD SUGAR DIAGNOSTIC 1 EACH STRIP IN SCH ×2 (07:33→11:40)
[2016-12-02 08:09] LABS: ALANINE AMINOTRANSFERASE 27 U/L (12-78); ALBUMIN 2.3 g/dL (3.4-5.0); ALKALINE PHOSPHATASE 68 U/L (46-116); ASPARTATE AMINOTRANSFERASE 17 U/L (15-37); BILIRUBIN,TOTAL 0.5 mg/dL (0.2-1.0); CALCIUM, SERUM 8.4 mg/dL (8.5-10.1); CARBON DIOXIDE 24 mmol/L (21-32); CHLORIDE 91 mmol/L (98-107); GLUCOSE 189 mg/dL (74-106); MAGNESIUM 2.2 mg/dL (1.8-2.4); PHOSPHORUS 7.1 mg/dL (2.5-4.9); POTASSIUM 5.7 mmol/L (3.5-5.1); SODIUM SERUM 128 mmol/L (136-145); TOTAL PROTEIN, SERUM 6.7 g/dL (6.4-8.2)
[2016-12-02 08:13] LABS: UREA NITROGEN, BLOOD 93 mg/dL (7-18)
[2016-12-02 08:14] LABS: CREATININE 9.9 mg/dL (0.6-1.3)
[2016-12-02] MEDS: SEVELAMER CARBONATE 800 MG TABLET PO SCH ×2 (08:16→13:27)
[2016-12-02] MEDS: ZYTIGA 250 MG PO SCH (08:16)
[2016-12-02] MEDS: VIT B CMPLX 3/FA/VIT C/BIOTIN 1 TAB TABLET PO SCH (08:17)
[2016-12-02] MEDS: CALCIUM CARB 250MG /VITAMIN D 1 UDTAB PO SCH (08:17)
[2016-12-02] MEDS: ASPIRIN 81 MG TAB.CHEW PO SCH (08:17)
[2016-12-02] MEDS: predniSONE 10 MG TABLET PO SCH (08:17)
[2016-12-02] MEDS: NIFEdipine (10MG) 10 MG CAPSULE PO SCH (08:23)
[2016-12-02] MEDS: HEPARIN SODIUM, PORCINE 5000 UNITS/1 ML VIAL SQ SCH (08:31)
[2016-12-02 08:34] VITALS: BP 171/74
[2016-12-02] MEDS: METOPROLOL TARTRATE 50 MG TABLET PO SCH (08:34)
--- NOTE | 2016-12-02 10:59 | NUR ---
HAND DEICER ELEMENT WINDER NOTES PATIENT RECEIVING HEMODIALYSIS AT THIS TIME, IN STABLE CONDITION
[2016-12-02] MEDS: BENZONATATE 100 MG CAPSULE PO PRN (13:30)
[2016-12-02] MEDS ORDERED: PRED10TA PO (14:59)
[2016-12-02] MEDS ORDERED: SITA50TA PO (14:59)
--- NOTE | 2016-12-02 15:59 | NUR ---
WOOD STRIP BLOCK FLOOR INSTALLER NOTE HEMODIALYSIS 1.5 LITER OUTPUT TODAY, PATIENT SEEN BY DR. TERRY AND CLEARED FOR DISCHARGE, ORDER NOTED AND CARRIED OUT, PATIENT RECEIVED DISCHARGE INSTRUCTIONS, AND VERBALIZED UNDERSTANDING, SKIN ASSESSMENT COMPLETED, BUT PATIENT REFUSED PHOTOS, EXPLAINED RISKS AND BENEFITS, PIV REMOVED, NO S/SX OF BLEEDING NOTED, BELONGINGS RECONCILED AND COMPLETED, DISCHARGE PAPERWORKS SIGNED AND GIVEN TO PATIENT, MEDICATIONS OBTAINED FROM PHARMACY AND GIVEN BACK TO THE PATIENT, PATIENT LEFT THE FACILITY IN STABLE CONDITION ACCOMPANIED BY AND DAUGHTER.
[2016-12-03 12:13] LABS: *C PEPTIDE 10.4 ng/mL (1.1-4.4); *INSULIN 6.5 uIU/mL (2.6-24.9)
== END 2016-12-02 15:45 | disposition home or self-care (01) | DRG 280 ==
LOC: ER 13:36 → TELE 15:57 → MED 12-02 11:55
PROVIDERS: ADMIT Internal Medicine Nephrology; ATTEND Internal Medicine Nephrology
PROC: 5A1D60Z (ICD-10-PCS; principal; 2016-11-30)
DX: I13.2 Hypertensive heart and chronic kidney disease with heart failure and with stage 5 chronic kidney disease, or end stage renal disease (principal); I50.33 Acute on chronic diastolic (congestive) heart failure; I21.4 Non-ST elevation (NSTEMI) myocardial infarction; N18.6 End stage renal disease; E11.22 Type 2 diabetes mellitus with diabetic chronic kidney disease; E11.649 Type 2 diabetes mellitus with hypoglycemia without coma; I27.2 Other secondary pulmonary hypertension; D64.9 Anemia, unspecified; E78.5 Hyperlipidemia, unspecified; I25.10 Atherosclerotic heart disease of native coronary artery without angina pectoris; I25.2 Old myocardial infarction; I48.0 Paroxysmal atrial fibrillation; N40.0 Benign prostatic hyperplasia without lower urinary tract symptoms; Z79.82 Long term (current) use of aspirin; Z79.84 Long term (current) use of oral hypoglycemic drugs; Z79.899 Other long term (current) drug therapy; Z85.46 Personal history of malignant neoplasm of prostate; Z86.73 Personal history of transient ischemic attack (TIA), and cerebral infarction without residual deficits; Z87.891 Personal history of nicotine dependence; Z90.49 Acquired absence of other specified parts of digestive tract; Z95.5 Presence of coronary angioplasty implant and graft; Z99.2 Dependence on renal dialysis; Z98.890 Other specified postprocedural states
CPT/HCPCS: 36415; 71010-TC; 80048-TC; 80053-TC; 80076-TC; 80202-TC; 82533; 82962-TC; 83605-TC; 83735-TC; 84100-TC; 84305; 84484-TC; 85025-TC; 85730-TC; 87040-TC; 87081-TC; 90935-TC; A4606; J1644; J1720; J1815; J2543; J2930; J3370; J3490; J7050; J7060; Z7610

== ENCOUNTER 2016-12-04 20:44 | Emergency (ER) | payer MEDICARE, MEDICAID ==
[~2016-12-04] VITALS: Ht 165.1 cm; Wt 53.5 kg
[~2016-12-04 20:44] MED LIST changes: +CEPH250C PO; +PRED10TA PO; +SITA50TA PO
--- NOTE | 2016-12-04 21:00 | NUR ---
PT BIBRA C/O PALPITATIONS AFTER DIALYSIS NO SOB ON ASSESSMENT. PT AOX4 RR EVEN AND UNLABORED. NO SOB NOTED. NAD NOTED. NO NVD AT THIS TIME. PT GOWNED AND PLACED ON MONITOR WAITING FOR MD PÉREZ. PT NOTED WITH LFA HD SITE.
[2016-12-04 21:49] LABS: BASOPHILS # (AUTO) 0.6 /CMM (0.0-0.2); BASOPHILS % (AUTO) 3.8 % (0.0-2.0); EOSINOPHILS # (AUTO) 0.1 /CMM (0.0-0.7); EOSINOPHILS % (AUTO) 0.8 % (0.0-6.0); HEMATOCRIT 32 % (39-51); HEMOGLOBIN 10.2 g/dL (13.5-17.5); LYMPHOCYTES # (AUTO) 0.8 /CMM (0.8-4.8); MEAN CORPUSCULAR HEMOGLOBIN 29 PG (26.0-33.0); MEAN CORPUSCULAR HGB CONC 33 g/dl (31.0-36.0); MEAN CORPUSCULAR VOLUME 88 fL (80-96); MONOCYTES # (AUTO) 1.3 /CMM (0.1-1.30); MONOCYTES % (AUTO) 8.6 % (2.0-12.0); NEUTROPHILS # (AUTO) 12.3 /CMM (1.8-8.9); NEUTROPHILS % (AUTO) 81.8 % (43.0-81.0); PLATELET COUNT (AUTO) 244 /CMM (150-450); RDW COEFFICIENT OF VARIATION 20.7 (11.5-15.0); RED BLOOD CELL COUNT(AUTO) 3.59 MIL/uL (4.5-6.0); WHITE BLOOD COUNT (AUTO) 15.1 K/uL (4.3-11.0)
--- NOTE | 2016-12-04 22:00 | NUR ---
DR. GIBSON AT BEDSIDE FOR EVAL.
[2016-12-04 22:06] LABS: INR 0.96 (0.87-1.13); PROTHROMBIN TIME 10.3 SECS (9.5-12.7)
[2016-12-04 22:10] LABS: ALANINE AMINOTRANSFERASE 24 U/L (12-78); ALBUMIN 2.4 g/dL (3.4-5.0); ALKALINE PHOSPHATASE 46 U/L (46-116); ASPARTATE AMINOTRANSFERASE 22 U/L (15-37); BILIRUBIN,DIRECT 0.2 mg/dL (0.0-0.2); BILIRUBIN,TOTAL 0.8 mg/dL (0.2-1.0); CALCIUM, SERUM 8.1 mg/dL (8.5-10.1); CARBON DIOXIDE 26 mmol/L (21-32); CHLORIDE 97 mmol/L (98-107); CREATININE 5.2 mg/dL (0.6-1.3); GLUCOSE 153 mg/dL (74-106); POTASSIUM 4.4 mmol/L (3.5-5.1); SODIUM SERUM 137 mmol/L (136-145); TOTAL PROTEIN, SERUM 6.8 g/dL (6.4-8.2); UREA NITROGEN, BLOOD 36 mg/dL (7-18)
[2016-12-04 22:11] LABS: LIPASE 2713 U/L (73-393)
--- NOTE | 2016-12-04 22:12 | NUR ---
LAB AT BEDSIDE FOR BLOOD DRAW: BLOOD CULTURES AND LACTIC REDRAW.
--- NOTE | 2016-12-04 22:14 | NUR ---
RADIOLOGY AT BEDSIDE FOR CXRAY
[2016-12-04 22:50] LABS: TROPONIN I 0.088 ng/mL (0.00-0.056)
[2016-12-04] MEDS ORDERED: DILTIAZEM HCL 50 MG IV ONE (22:54)
[2016-12-04 22:57] LABS: THYROID STIMULATING HORMONE 43.726 uIU/mL (0.358-3.74)
[2016-12-04] MEDS ORDERED: DILTIAZEM HCL 50 MG IV IV ONE (23:00)
[2016-12-05] MEDS ORDERED: MIDAZOLAM HCL 2 MG/2ML VIAL IV ONE
--- NOTE | 2016-12-05 00:05 | NUR ---
IV removed. Catheter intact and site benign. Pressure and 4x4 applied to site. No bleeding noted. Patient discharged to home in stable condition. Written and verbal after care instructions given. Patient verbalizes understanding of instruction. ambulatory with a steady gait per family request pt w/c out to lobby. pt accompanied by family.
[2016-12-05 00:07] VITALS: BP 128/59
== END 2016-12-05 00:08 | disposition home or self-care (01) ==
LOC: ER 20:45
DX: I48.91 Unspecified atrial fibrillation (principal); I12.0 Hypertensive chronic kidney disease with stage 5 chronic kidney disease or end stage renal disease; E11.22 Type 2 diabetes mellitus with diabetic chronic kidney disease; N18.6 End stage renal disease; D64.9 Anemia, unspecified; D72.829 Elevated white blood cell count, unspecified; R94.31 Abnormal electrocardiogram [ECG] [EKG]; Z79.82 Long term (current) use of aspirin; Z85.46 Personal history of malignant neoplasm of prostate; Z99.2 Dependence on renal dialysis; Z90.89 Acquired absence of other organs
CPT/HCPCS: 36415; 71010; 80048; 80076; 83605; 83690; 84443; 84484; 85025; 85730; 87040 ×2; 93005 ×3; 96374; 99285; A4606; J3490; Z7610

== ENCOUNTER 2017-01-25 03:16 | Inpatient (IN) | payer MEDICARE, MEDICAID ==
[2017-01-25] VITALS (8 sets, daily range): BP systolic 108–180; BP diastolic 68–89
[~2017-01-25] VITALS: Ht 157.5 cm; Wt 41.3 kg
[~2017-01-25 03:16] MED LIST changes: -ABIR250T PO; -CEPH250C PO; -GLIM1TAB2 PO; -PRED5TAB PO
--- NOTE | 2017-01-25 03:16 | NUR ---
to bed 3 ambulatory bib family member c/o LLQ abdominal pain x3 hrs district captain. pt aaox4 no acute distress noted, resp even and unlabored. er md at bedside to eval pt with orders received. place pt on cardaic monitoring, continuous pox. will carry out orders.
--- NOTE | 2017-01-25 03:25 | NUR ---
started sl 18g to R hand, blood drawn and sent to lab.
[2017-01-25] MEDS ORDERED: ONDANSETRON HCL/PF 4 MG/2 ML VIAL IVP ONE (03:30)
[2017-01-25] MEDS ORDERED: MORPHINE SULFATE INJ 2 MG/ML DISP.SYRIN IV ONE (03:30)
[2017-01-25] MEDS ORDERED: MORPHINE SULFATE INJ 4 MG/ML DISP.SYRIN ONE (03:35)
[2017-01-25] MEDS ORDERED: ONDANSETRON HCL/PF 4 MG/2 ML VIAL ONE (03:35)
[2017-01-25] MEDS ORDERED: MORPHINE SULFATE INJ 2 MG/ML DISP.SYRIN ONE (03:35)
--- NOTE | 2017-01-25 03:40 | NUR ---
rn at bedside to amanda pt.
[2017-01-25 03:48] LABS: BASOPHILS # (AUTO) 0.1 /CMM (0.0-0.2); BASOPHILS % (AUTO) 0.5 % (0.0-2.0); EOSINOPHILS # (AUTO) 0.1 /CMM (0.0-0.7); EOSINOPHILS % (AUTO) 1.1 % (0.0-6.0); HEMATOCRIT 40 % (39-51); HEMOGLOBIN 12.6 g/dL (13.5-17.5); LYMPHOCYTES # (AUTO) 1.5 /CMM (0.8-4.8); MEAN CORPUSCULAR HEMOGLOBIN 26 PG (26.0-33.0); MEAN CORPUSCULAR HGB CONC 32 g/dl (31.0-36.0); MEAN CORPUSCULAR VOLUME 83 fL (80-96); MONOCYTES # (AUTO) 1.5 /CMM (0.1-1.30); NEUTROPHILS # (AUTO) 10.6 /CMM (1.8-8.9); NEUTROPHILS % (AUTO) 76.4 % (43.0-81.0); PLATELET COUNT (AUTO) 219 /CMM (150-450); RDW COEFFICIENT OF VARIATION 18.9 (11.5-15.0); WHITE BLOOD COUNT (AUTO) 13.9 K/uL (4.3-11.0)
[2017-01-25 03:59] LABS: INR 0.9 (0.87-1.13); PROTHROMBIN TIME 9.3 SECS (9.5-12.7)
[2017-01-25 04:03] LABS: ALANINE AMINOTRANSFERASE 13 U/L (12-78); ALBUMIN 3.5 g/dL (3.4-5.0); ALKALINE PHOSPHATASE 81 U/L (46-116); ASPARTATE AMINOTRANSFERASE 35 U/L (15-37); BILIRUBIN,DIRECT 0.1 mg/dL (0.0-0.2); BILIRUBIN,TOTAL 0.4 mg/dL (0.2-1.0); CALCIUM, SERUM 9.7 mg/dL (8.5-10.1); CARBON DIOXIDE 27 mmol/L (21-32); CHLORIDE 95 mmol/L (98-107); GLUCOSE 199 mg/dL (74-106); POTASSIUM 4.3 mmol/L (3.5-5.1); SODIUM SERUM 137 mmol/L (136-145); TOTAL PROTEIN, SERUM 8.2 g/dL (6.4-8.2); UREA NITROGEN, BLOOD 66 mg/dL (7-18)
[2017-01-25 04:04] LABS: CREATININE 8.3 mg/dL (0.6-1.3)
[2017-01-25 04:12] LABS: LIPASE 2665 U/L (73-393)
--- NOTE | 2017-01-25 05:01 | NUR ---
report called to television script writerveronica orozco. pending hospital admission.
--- NOTE | 2017-01-25 05:36 | NUR ---
er talking to dr. bonilla regarding pt admission. will transport pt via acls protocol.
--- NOTE | 2017-01-25 05:45 | NUR ---
bROUGHT FROM ER VIA GUERNEY, HELPED INTO BED/a/a OR TIMES 4 NO C/O OR DISTRESS NOTED
--- NOTE | 2017-01-25 07:30 | NUR ---
MS RN NOTES PT IN BED, AAO X 3, TAGALOG SPEAKING, ON RA, NOT IN ANY DISTRESS, DENIES PAIN AT THIS TIME, NO NAUSEA/ NO VOMITING, AFEBRILE, ABDOMEN SOFT, NON TENDER. PT C/O ABDOMINAL PAIN PRIOR TO ADMISSION. NPO FOR NOW. BED REST. SEE NURSING FLOWSHEET FOR SKIN ISSUES, PHOTOS TAKEN, PLACED IN CHART. UNIT ORIENTATION AND USE OF CALL LIGHT DONE. BED LOW LOCKED, WILL CONTINUE TO MONITOR. PATIENT ARRIVED AT 0600, FORTINO MCKEON SUPERVISOR KEYMODULE ASSEMBLY, INFORMED DR. TERRY PHOTOGRAMMETRIST AT 0705 ABOUT MED RECONCILIATION. PER DR. TERRY HE IS ON HIS WAY.
[2017-01-25] MEDS ORDERED: HYDROMORPHONE 1 MG/1 ML DISP.SYRIN IV PRN (08:00)
[2017-01-25] MEDS ORDERED: NIFE60TA69 PO (08:09)
[2017-01-25] MEDS ORDERED: ABIR250T PO (08:09)
[2017-01-25] MEDS ORDERED: PRED5TAB PO (08:09)
[2017-01-25] MEDS ORDERED: LEVO50TA8 PO (08:11)
[2017-01-25] MEDS: PANTOPRAZOLE 40 MG VIAL IV SCH (10:21)
[2017-01-25] MEDS: IV D5/ 0.9% NACL 1,000 ML IV SCH ×2 (10:21→23:30)
--- NOTE | 2017-01-25 11:28 | NUR ---
MS RN NOTE HD COMPLETED 1 LITER OUT BP 135/58
[2017-01-25] MEDS: NIFEdipine XL 60 MG TAB PO SCH (16:29)
[2017-01-25] MEDS: METOPROLOL TARTRATE 50 MG TABLET PO SCH (16:29)
--- NOTE | 2017-01-25 18:34 | NUR ---
MS RN CLOSING NOTES PT RESTING IN BED, AAO X 3, TAGALOG SPEAKING, ON RA, NOT IN ANY DISTRESS, DENIES PAIN AT THIS TIME, NO NAUSEA/ NO VOMITING, AFEBRILE, ABDOMEN SOFT, NON TENDER. PT C/O ABDOMINAL PAIN TOLERABLE ON AND OFF. REMAINS NPO, BED REST. CALL LIGHT WITHIN REACH. BED LOW LOCKED, ALL NEEDS MET. PM CARE DONE. AT BEDSIDE. NO OTHER SIGNIFICANT CHANGE IN CONDITION. WILL ENDORSE TO NEXT SHIFT FOR SHANNAN.
--- NOTE | 2017-01-26 07:06 | NUR ---
pt c/o pain after sitting in the chair for 30 mins, pain is 5/10 abdomen, but pyxis run out of stock, called pharmacy and will refill or change stock in hand. will continue to monitor.vss,afebrile
[2017-01-26] MEDS ORDERED: HYDROMORPHONE INJ 2 MG/ML DISP.SYRIN IV PRN (07:30)
--- NOTE | 2017-01-26 07:35 | NUR ---
RN INITIAL NOTES: PATIENT RESTING IN BED. PATIENT ALERT ORIENTED X3-4. NON-LABORED BREATHING NOTED ON ROOM AIR. PATIENT DENIES PAIN AT THE MOMENT. OFFERED PAIN MEDICATION BUT PATIENT REFUSED. WILL OFFER AGAIN. IV SITE ON LEFT UPPER ARM PATENT AND INTACT. BED IN LOWEST LOCKED POSITION. CALL LIGHT WITHIN REACH. WILL CONTINUE TO MONITOR.
[2017-01-26 08:11] VITALS: BP 173/72
[2017-01-26] MEDS: LEVOTHYROXINE SODIUM 50 MCG TABLET PO SCH (09:05)
[2017-01-26] MEDS: METOPROLOL TARTRATE 50 MG TABLET PO SCH ×2 (09:07→16:34)
[2017-01-26] MEDS: PANTOPRAZOLE 40 MG VIAL IV SCH (09:07)
[2017-01-26] MEDS: NIFEdipine XL 60 MG TAB PO SCH ×2 (09:07→16:34)
[2017-01-26] MEDS: ASPIRIN 81 MG TAB.CHEW PO SCH (09:07)
[2017-01-26] MEDS: IV D5/ 0.9% NACL 1,000 ML IV SCH ×2 (11:17→23:43)
[2017-01-26 12:00] LABS: ALANINE AMINOTRANSFERASE 14 U/L (12-78); ALBUMIN 2.7 g/dL (3.4-5.0); ALKALINE PHOSPHATASE 39 U/L (46-116); ASPARTATE AMINOTRANSFERASE 22 U/L (15-37); BASOPHILS % (AUTO) 0.3 % (0.0-2.0); BILIRUBIN,TOTAL 0.4 mg/dL (0.2-1.0); CALCIUM, SERUM 8.8 mg/dL (8.5-10.1); CARBON DIOXIDE 26 mmol/L (21-32); CHLORIDE 101 mmol/L (98-107); EOSINOPHILS # (AUTO) 0.2 /CMM (0.0-0.7); EOSINOPHILS % (AUTO) 1.4 % (0.0-6.0); GLUCOSE 112 mg/dL (74-106); HEMATOCRIT 34 % (39-51); HEMOGLOBIN 11.1 g/dL (13.5-17.5); LIPASE 795 U/L (73-393); LYMPHOCYTES # (AUTO) 1.4 /CMM (0.8-4.8); MEAN CORPUSCULAR HEMOGLOBIN 27 PG (26.0-33.0); MEAN CORPUSCULAR HGB CONC 33 g/dl (31.0-36.0); MEAN CORPUSCULAR VOLUME 83 fL (80-96); MONOCYTES # (AUTO) 1.5 /CMM (0.1-1.30); MONOCYTES % (AUTO) 12.3 % (2.0-12.0); NEUTROPHILS # (AUTO) 9.3 /CMM (1.8-8.9); PHOSPHORUS 5.1 mg/dL (2.5-4.9); PLATELET COUNT (AUTO) 182 /CMM (150-450); RDW COEFFICIENT OF VARIATION 19.1 (11.5-15.0); RED BLOOD CELL COUNT(AUTO) 4.08 MIL/uL (4.5-6.0); SODIUM SERUM 139 mmol/L (136-145); TOTAL PROTEIN, SERUM 6.7 g/dL (6.4-8.2); UREA NITROGEN, BLOOD 59 mg/dL (7-18); WHITE BLOOD COUNT (AUTO) 12.4 K/uL (4.3-11.0)
[2017-01-26 12:20] LABS: CREATININE 8.2 mg/dL (0.6-1.3)
--- NOTE | 2017-01-26 14:19 | NUR ---
RN NOTES: AT 1400, TEMPERATURE ASSESSED TO BE 102.0. COOLING MEASURES INITIATED IMMEDIATELY, AND DR. KEYSHAWN CRISTOBAL PAGED. 1415, PATIENT REASSESSED AND TEMPERATURE 100.7F. SPOKE WITH DR. CRISTOBAL NOW. ORDERED TYLENOL 650 MG Q 6 HOURS PRN FOR MILD PAIN OR FEVER. SHE ORDERED ZOSYN 2.25 G IV Q [address] OF ABDOMEN/PELVIS WITH IV CONTRAST. DR AWARE OF OTHER LABS, NO OTHER NEW ORDERS.
--- NOTE | 2017-01-26 14:25 | NUR ---
RN Notes: Temperature reassessed and noted to be 99.2 F with cooling measures. Will continue to monitor
[2017-01-26] MEDS: PIPERACILLIN /TAZOBACTAM 2.25 G in IV D5W 50 ML IV SCH ×2 (15:18→20:46)
[2017-01-26 16:00] VITALS: BP 149/62
--- NOTE | 2017-01-26 16:30 | NUR ---
RN NOTES: SPOKE TO DR. DOMINGO REGARDING PATIENT'S BLOOD SUGAR. DR ORDERED TO INCREASE 0.5% DEXTROSE AND NS RATE TO 125ML/HOUR. ALSO ORDERED TO START PATIENT ON CLEAR LIQUIDS TOMORROW TOLERATED. ALSO STATED IT IS PERMITTED TO HAVE PATIENT TAKE HIS PO MEDICATIONS
[2017-01-26 16:51] LABS: CHOLESTEROL 132 mg/dL (<200); HDL CHOLESTEROL 60 mg/dL (40-60); LDL 54 mg/dL (0-99); TRIGLYCERIDES 98 mg/dL (30-150)
[2017-01-26] MEDS ORDERED: IOHEXOL-350 100 ML VIAL IV ONE (17:06)
[2017-01-26] MEDS ORDERED: CT SWABBABLE VALVE TRANS SET 1 EA INFUS.SET MC ONE (17:06)
[2017-01-26] MEDS ORDERED: IV NS 0.9% 250 ML IV ONE (17:06)
[2017-01-26] MEDS: ACETAMINOPHEN 325 MG TABLET PO PRN (17:09)
--- NOTE | 2017-01-26 17:30 | NUR ---
RN NOTES: SPOKE TO DR KEYSHAWN CRISTOBAL. SHE ORDERED LIPASE AND BLOOD CULTURES X2 FOR TOMORROW
[2017-01-26] MEDS ORDERED: PIPERACILLIN /TAZOBACTAM 2.25 G in IV D5W 50 ML IV SCH (18:00)
[2017-01-26] MEDS ORDERED: DEXTROSE 50%-WATER 50 ML DISP.SYRIN IV PRN (19:00)
--- NOTE | 2017-01-26 19:25 | NUR ---
RN OPEN NOTES RECEIVED PATIENT AWAKE IN BED. A/O X3. NO SIGNS OF DISTRESS OR DISCOMFORT. BREATHING EVEN AND UNLABORED. IV ACCESS IN RFA WITH D5NS INFUSING, PATENT AND INTACT, NO SIGNS OF REDNESS OR INFILTRATION. BED IN LOW LOCKED POSITION WITH SIDE RAILS X2. CALL LIGHT WITHIN REACH. WILL CONTINUE TO MONITOR.
--- NOTE | 2017-01-26 19:25 | NUR ---
RN CLOSING NOTES: PATIENT RESTING IN BED. PATIENT ALERT ORIENTED X3-4. NON-LABORED BREATHING NOTED ON ROOM AIR. PATIENT DENIES PAIN AT THE MOMENT. IV SITE ON LEFT UPPER ARM PATENT AND INTACT. BED IN LOWEST LOCKED POSITION. CALL LIGHT WITHIN REACH. ENDORSED TO NEXT SHIFT
[2017-01-26 20:00] VITALS: BP 124/56
[2017-01-26] MEDS: BLOOD SUGAR DIAGNOSTIC 1 EACH STRIP IN SCH ×2 (20:46→23:44)
[2017-01-27] MEDS: ACETAMINOPHEN 325 MG TABLET PO PRN (02:06)
--- NOTE | 2017-01-27 02:06 | NUR ---
RN NOTES ADMINISTERED TYLENOL 650MG ORDERED FOR ABD PAIN 5/10. WILL CONTINUE TO MONITOR.
[2017-01-27] MEDS: PIPERACILLIN /TAZOBACTAM 2.25 G in IV D5W 50 ML IV SCH ×3 (05:56→20:50)
[2017-01-27] MEDS: IV D5/ 0.9% NACL 1,000 ML IV SCH ×2 (05:58→19:54)
[2017-01-27] MEDS: BLOOD SUGAR DIAGNOSTIC 1 EACH STRIP IN SCH ×3 (06:10→18:24)
[2017-01-27] MEDS: INSULIN REGULAR, HUMAN 100 UNIT/ML 3 ML VIAL SQ PRN (06:14)
--- NOTE | 2017-01-27 07:22 | NUR ---
RN Notes: Patient resting in bed. patient alert oriented x3. No signs of distress noted. non-labored breathing noted on room air. Patient denies pain at the moment. Iv site on right forearm patent and intact. Bed in lowest locked position. Will continue to monitor
--- NOTE | 2017-01-27 07:32 | NUR ---
RN CLOSING NOTES PATIENT AWAKE IN BED. A/O X3. NO SIGNS OF DISTRESS OR DISCOMFORT. BREATHING EVEN AND UNLABORED. IV ACCESS IN RFA WITH D5NS INFUSING, PATENT AND INTACT, NO SIGNS OF REDNESS OR INFILTRATION. ALL NEEDS MET. NO SIGNIFICANT CHANGES THROUGH THE NIGHT. BED IN LOW LOCKED POSITION WITH SIDE RAILS X2. CALL LIGHT WITHIN REACH. ENDORSED TO AM SHIFT FOR SHANNAN.
[2017-01-27 07:51] LABS: BASOPHILS % (AUTO) 0.1 % (0.0-2.0); EOSINOPHILS # (AUTO) 0.2 /CMM (0.0-0.7); HEMATOCRIT 31 % (39-51); LYMPHOCYTES # (AUTO) 1.1 /CMM (0.8-4.8); MEAN CORPUSCULAR HEMOGLOBIN 27 PG (26.0-33.0); MEAN CORPUSCULAR HGB CONC 33 g/dl (31.0-36.0); MEAN CORPUSCULAR VOLUME 83 fL (80-96); MONOCYTES # (AUTO) 0.9 /CMM (0.1-1.30); MONOCYTES % (AUTO) 8.5 % (2.0-12.0); NEUTROPHILS # (AUTO) 8.6 /CMM (1.8-8.9); NEUTROPHILS % (AUTO) 79.4 % (43.0-81.0); PLATELET COUNT (AUTO) 179 /CMM (150-450); RDW COEFFICIENT OF VARIATION 18.9 (11.5-15.0); RED BLOOD CELL COUNT(AUTO) 3.68 MIL/uL (4.5-6.0); WHITE BLOOD COUNT (AUTO) 10.8 K/uL (4.3-11.0)
[2017-01-27 08:00] VITALS: BP 130/59
[2017-01-27] MEDS: LEVOTHYROXINE SODIUM 50 MCG TABLET PO SCH (08:13)
[2017-01-27] MEDS: ASPIRIN 81 MG TAB.CHEW PO SCH (08:13)
[2017-01-27] MEDS: PANTOPRAZOLE 40 MG VIAL IV SCH (08:15)
[2017-01-27 08:20] LABS: ALANINE AMINOTRANSFERASE 11 U/L (12-78); ALBUMIN 2.4 g/dL (3.4-5.0); ALKALINE PHOSPHATASE 33 U/L (46-116); ASPARTATE AMINOTRANSFERASE 16 U/L (15-37); BILIRUBIN,TOTAL 0.4 mg/dL (0.2-1.0); CALCIUM, SERUM 8.6 mg/dL (8.5-10.1); CARBON DIOXIDE 22 mmol/L (21-32); CHLORIDE 102 mmol/L (98-107); GLUCOSE 194 mg/dL (74-106); LIPASE 291 U/L (73-393); PHOSPHORUS 5.8 mg/dL (2.5-4.9); SODIUM SERUM 139 mmol/L (136-145); TOTAL PROTEIN, SERUM 6.2 g/dL (6.4-8.2); UREA NITROGEN, BLOOD 64 mg/dL (7-18)
[2017-01-27] MEDS: METOPROLOL TARTRATE 50 MG TABLET PO SCH ×2 (08:20→13:06)
[2017-01-27 08:21] LABS: CREATININE 9.4 mg/dL (0.6-1.3)
[2017-01-27] MEDS: NIFEdipine XL 60 MG TAB PO SCH ×2 (08:21→18:17)
[2017-01-27] MEDS ORDERED: DIGOXIN INJ 0.5 MG/2 ML AMPUL IV ONE (13:45)
[2017-01-27 14:00] VITALS: BP 120/65
[2017-01-27 17:28] LABS: HEMOGLOBIN 10.3 g/dL (13.5-17.5)
[2017-01-27 17:46] LABS: INR 1.03 (0.87-1.13); PROTHROMBIN TIME 10.7 SECS (9.5-12.7)
--- NOTE | 2017-01-27 19:20 | NUR ---
RN NOTES: DR. MCNAIR AWARE OF TODAY'S LABS. PATIENT HAD DIALYSIS TODAY. BLOOD PRESSURE POST HEMODIALYSIS WAS NOTED TO BE 136/68 WITH HR OF 130. PATIENT DENIED SHORTNESS OF BREATH. PATIENT ON 2 L NASAL CANNULA. NONLABORED BREATHING NOTED. PATIENT APPEARED CALM. DR. MCNAIR ALERTED. DR MCNAIR ORDERED TO ADMINISTER PRESCRIBED METOPROLOL 50 MG WELL A STAT EKG TO BE DONE AT 1302. 13:36 DR ALERTED THAT EKG INDICATES ATRIAL FIBRILLATION WITH HEART RATE OF 136. PATIENT VERBALIZED HAVING A PREVIOUS HISTORY OF ATRIAL FIBRILLATION. DR ORDERED PATIENT TO BE PLACED ON TELE AT 13:40 WELL GIVE DIGOXIN IV 0.125 MG ONCE. 1424: NOTIFIED THAT PATIENT IS STILL AFIB DESPITE DIGOXIN ADMINSTRATION. ORDERED TO ADMINISTER PRESCRIBED ZOSYN. 1632. NOTIFIED THAT PATIENT HAD A MODERATE BOWEL MOVEMENT WITH BRIGHT RED BLOOD NOTED IN THE STOOL. NO SHORTNESS OF BREATH NOTED. BP WITHIN NORMAL RANGE. PATIENT DENIES ABDOMINAL PAIN. NORMOACTIVE BOWEL SOUNDS HEARD. DR AWARE AND ORDERED PATIENT TO BE PLACED NPO, TO DC ASPIRIN, TO INCREASE IVF TO 75 ML/HOUR, TO CHECK H&H EVERY 8 HOURS (I SPOKE WITH LAB REGARDING ORDER, THEY ARE AWARE/ALSO TOLD NEXT SHIFT). DR DOMINGO PAGED REGARDING BM PER DR MCNAIR'S ORDERS. DR CHADWICK ALERTED REGARDING PATIENT'S AFIB PER DR. MCNAIR'S ORDERS. DR MCNAIR ALSO ORDERED A STAT H&h as well as PT with INR. Alerted Dr. mcnair of results (including Procalcitonin) once obtained.
--- NOTE | 2017-01-27 19:30 | NUR ---
RN Closing Notes ; patient stable. No shortness of breath noted on room air. Patient afebrile at the moment. Patient denies pain. Tele reading indicated atrial fibrillation. No onset of weakness noted. No slurred speech. Patient PERRLA. iv site patent and intact. Patient wanted to leave AMA earlier. DR CRISTOBAL was notified. Benefits and risks were explained to patient several times. Patient agreed to stay. Patient had dialysis today with an output of 1.5 L today. He was kept clean and dry throughout the shift as well as encouraged to turn and reposition. No difficulty of swallowing noted today when eating breakfast and lunch. No nausea or vomitting through the day. Bed in lowest locked positon. call light within reach. Endorsed to next shift
--- NOTE | 2017-01-27 19:31 | NUR ---
RN NOTES RECEIVED PT AWAKE, HOB ELEVATED, NO SOB, NOT IN DISTRESS, ON ROOM AIR AND TOLERATED WELL. PT IS ALERT AND ORIENTED X3, DENIES ANY PAIN AND DISCOMFORT. TELEMONITOR READS A. FIB. WITH HEART RATE AT 131. IV ACCESS ON RIGHT FOREARM PATENT AND INTACT WITH ONGOING IVF INFUSING WELL. AV FISTULA ON LEFT FOREARM POSITIVE WITH BRUIT AND THRILL. KEPT COMFORTABLE AND ATTENDED. PLAN OF CARE DISCUSS WITH THE PT. FALL PRECAUTION OBSERVED. WILL CONTINUE TO MONITOR PT.
--- NOTE | 2017-01-27 21:41 | NUR ---
RN NOTES PT TELEMONITOR READS NORMAL SINUS RHYTHM WITH HEART RATE AT 104. PT DENIES ANY PAIN AND DISCOMFORT. WILL CONTINUE TO MONITOR PT.
[2017-01-27 22:00] VITALS: BP 136/67
--- NOTE | 2017-01-27 22:05 | NUR ---
RN NOTES VISITED BY DR DOMINGO, MAY ADVANCE DIET TO CLEAR LIQUIDS IN AM IF CLINICALLY IMPROVING AND IF OK WITH PRODUCT ANALYST.
[2017-01-28] VITALS: BP 140/72
[2017-01-28] MEDS: BLOOD SUGAR DIAGNOSTIC 1 EACH STRIP IN SCH ×5 (00:15→23:20)
--- NOTE | 2017-01-28 00:15 | NUR ---
RN NOTES BLOOD SUGAR CHECKED 153 MG/DL, NO INSULIN COVERAGE GIVEN BECAUSE PT IS NPO.
[2017-01-28] MEDS: INSULIN REGULAR, HUMAN 100 UNIT/ML 3 ML VIAL SQ PRN ×2 (00:18→05:49)
[2017-01-28 04:00] VITALS: BP 140/86
[2017-01-28] MEDS: PIPERACILLIN /TAZOBACTAM 2.25 G in IV D5W 50 ML IV SCH ×3 (05:27→21:25)
[2017-01-28] MEDS: IV D5/ 0.9% NACL 1,000 ML IV SCH (05:42)
--- NOTE | 2017-01-28 05:48 | NUR ---
RN NOTES BLOOD SUGAR CHECKED 156 MG/DL, NO INSULIN COVERAGE, PT IS NPO. WILL CONTINUE TO MONITOR PT.
[2017-01-28 07:29] LABS: BASOPHILS % (AUTO) 0.4 % (0.0-2.0); EOSINOPHILS # (AUTO) 0.3 /CMM (0.0-0.7); EOSINOPHILS % (AUTO) 3.2 % (0.0-6.0); HEMATOCRIT 29 % (39-51); HEMOGLOBIN 9.6 g/dL (13.5-17.5); MEAN CORPUSCULAR HEMOGLOBIN 27 PG (26.0-33.0); MEAN CORPUSCULAR HGB CONC 33 g/dl (31.0-36.0); MEAN CORPUSCULAR VOLUME 83 fL (80-96); MONOCYTES % (AUTO) 12.5 % (2.0-12.0); NEUTROPHILS # (AUTO) 5.9 /CMM (1.8-8.9); NEUTROPHILS % (AUTO) 71.9 % (43.0-81.0); PLATELET COUNT (AUTO) 178 /CMM (150-450); RED BLOOD CELL COUNT(AUTO) 3.54 MIL/uL (4.5-6.0); WHITE BLOOD COUNT (AUTO) 8.2 K/uL (4.3-11.0)
--- NOTE | 2017-01-28 07:30 | NUR ---
RN NOTES PT ASLEEP, HOB ELEVATED, NO SOB, NOT IN DISTRESS, ON ROOM AIR AND TOLERATED WELL. VITAL SIGNS STABLE, TELEMONITOR READS SINUS RHYTHM AT 90. NO EPISODE OF NAUSEA AND VOMITING. NO COMPLAIN OF CHEST PAIN. NO EPISODE OF BLOOD IN THE STOOL. KEPT PT ON NPO ORDERED. ALL DUE MEDS GIVEN. ALL NEEDS ATTENDED. ENDORSED TO MORNING RN FOR CONTINUITY OF CARE.
[2017-01-28 07:43] LABS: ALANINE AMINOTRANSFERASE 12 U/L (12-78); ALBUMIN 2.3 g/dL (3.4-5.0); ALKALINE PHOSPHATASE 33 U/L (46-116); ASPARTATE AMINOTRANSFERASE 17 U/L (15-37); BILIRUBIN,TOTAL 0.4 mg/dL (0.2-1.0); CALCIUM, SERUM 8.6 mg/dL (8.5-10.1); CARBON DIOXIDE 26 mmol/L (21-32); CHLORIDE 103 mmol/L (98-107); CREATININE 6.7 mg/dL (0.6-1.3); GLUCOSE 162 mg/dL (74-106); LIPASE 176 U/L (73-393); MAGNESIUM 1.7 mg/dL (1.8-2.4); POTASSIUM 4.2 mmol/L (3.5-5.1); SODIUM SERUM 139 mmol/L (136-145); TOTAL PROTEIN, SERUM 6.3 g/dL (6.4-8.2); UREA NITROGEN, BLOOD 37 mg/dL (7-18)
--- NOTE | 2017-01-28 07:49 | NUR ---
MS/RN OPENING NOTE PATIENT RECEIVED IN BED IN STABLE CONDITION. A/O X 3. NO SIGNS OF ACUTE DISTRESS. NO COMPLAIN OF PAIN OR DISCOMFORT. NPO EXCEPT MEDS. PER DR DOMINGO, ORDER TO ADVANCE DIET TO CLEAR LIQUID IF CLINICALLY IMPROVING AND OKAY WITH MARKETING OFFICER DR KAHN. ALL NEEDS ATTENDED TO. CALL LIGHT WITHIN REACH. WILL CONTINUE TO MONITOR TO ENSURE SAFETY.
[2017-01-28 08:00] VITALS: BP 134/59
--- NOTE | 2017-01-28 08:20 | NUR ---
ms rn received on bed, awake,alert,oriented x4,not in any form of distress, respirations even and unlabored,no sob noted.denies pain at this time, will monitor patient's condition.
--- NOTE | 2017-01-28 09:00 | NUR ---
ms rn was seen by dr. wing, w/ ok to feed patient, clear liquids.
[2017-01-28 09:42] LABS: THYROID STIMULATING HORMONE 7.584 uIU/mL (0.358-3.74)
--- NOTE | 2017-01-28 10:00 | NUR ---
msrn breakfast served,due meds given,tolerated well.
[2017-01-28] MEDS: PANTOPRAZOLE 40 MG VIAL IV SCH (10:13)
[2017-01-28] MEDS: LEVOTHYROXINE SODIUM 50 MCG TABLET PO SCH (10:13)
[2017-01-28] MEDS: METOPROLOL TARTRATE 50 MG TABLET PO SCH ×2 (10:16→17:35)
[2017-01-28] MEDS: NIFEdipine XL 60 MG TAB PO SCH ×2 (10:18→17:36)
--- NOTE | 2017-01-28 11:00 | NUR ---
ms rn was seen by dr. xu campbell/ orders made and carried out.
--- NOTE | 2017-01-28 12:00 | NUR ---
MS MIKE BS - 169 - REFUSED TO COVER DUE TO POOR APPETITE.
[2017-01-28 16:00] VITALS: BP 127/69
--- NOTE | 2017-01-28 17:50 | NUR ---
MS MCKEON BLOOD SUGAR - 112 - NO COVERAGE GIVEN.
--- NOTE | 2017-01-28 19:40 | NUR ---
MS/RN NOTES RECEIVED PT. SITTING UP IN BED. PT. IS AWAKE, ALERT AND ORIENTED X3. BREATHING EVEN AND UNLABORED ON 2LPM O2 VIA NC. NO SOB, RESPIRATORY DISTRESS OR COMPLAINTS OF PAIN NOTED AT THIS TIME. PT. WITH RIGHT FOREARM 22 GAUGE IV SALINE LOCK PRESENT, PATENT AND INTACT. BED LOCKED AND IN LOWEST POSITION, SIDE RAILS UP X2, BED ALARM ON, CALL LIGHT WITHIN REACH, WILL CONTINUE TO MONITOR.
[2017-01-28 20:00] VITALS: BP 128/56
[2017-01-29] MEDS: BLOOD SUGAR DIAGNOSTIC 1 EACH STRIP IN SCH ×3 (05:49→17:22)
[2017-01-29] MEDS: PIPERACILLIN /TAZOBACTAM 2.25 G in IV D5W 50 ML IV SCH ×3 (05:49→20:48)
--- NOTE | 2017-01-29 06:17 | NUR ---
MS/RN NOTES PT. IS LYING IN BED RESTING. BREATHING EVEN AND UNLABORED ON 2LPM O2 VIA NC. NO SOB, RESPIRATORY DISTRESS OR COMPLAINTS OF PAIN NOTED AT THIS TIME AND THROUGHOUT SHIFT. PT. WITH RIGHT FOREARM 22 GAUGE IV SALINE LOCK PRESENT, PATENT AND INTACT. ALL PT. NEEDS MET. ALL DUE MEDICATIONS GIVEN. BED LOCKED AND IN LOWEST POSITION, SIDE RAILS UP X2, BED ALARM ON, CALL LIGHT WITHIN REACH, WILL ENDORSE TO DAYSHIFT NURSE FOR CONTINUITY OF CARE.
[2017-01-29 08:00] VITALS: BP 141/73
[2017-01-29 08:00] LABS: BASOPHILS % (AUTO) 0.6 % (0.0-2.0); EOSINOPHILS # (AUTO) 0.3 /CMM (0.0-0.7); EOSINOPHILS % (AUTO) 3.3 % (0.0-6.0); HEMATOCRIT 32 % (39-51); HEMOGLOBIN 10.6 g/dL (13.5-17.5); LYMPHOCYTES # (AUTO) 1.7 /CMM (0.8-4.8); LYMPHOCYTES % (AUTO) 19.1 % (20.0-44.0); MEAN CORPUSCULAR HEMOGLOBIN 27 PG (26.0-33.0); MEAN CORPUSCULAR HGB CONC 33 g/dl (31.0-36.0); MEAN CORPUSCULAR VOLUME 83 fL (80-96); MONOCYTES # (AUTO) 0.9 /CMM (0.1-1.30); MONOCYTES % (AUTO) 10.3 % (2.0-12.0); NEUTROPHILS % (AUTO) 66.7 % (43.0-81.0); PLATELET COUNT (AUTO) 176 /CMM (150-450); RED BLOOD CELL COUNT(AUTO) 3.89 MIL/uL (4.5-6.0); WHITE BLOOD COUNT (AUTO) 8.9 K/uL (4.3-11.0)
--- NOTE | 2017-01-29 08:00 | NUR ---
SHELL WORKER NOTES PATIENT IN BED RECEIVING DIALYSIS. NO SOB OR ACUTE DISTRESS NOTED. BED IN LOW LOCKED POSITION. CALL LIGHT WITHIN REACH. PERIPHERAL IV INTACT PATENT. WILL CONTINUE TO MONITOR.
[2017-01-29] MEDS: PANTOPRAZOLE 40 MG VIAL IV SCH (08:21)
[2017-01-29] MEDS: NIFEdipine XL 60 MG TAB PO SCH ×2 (08:22→17:15)
[2017-01-29] MEDS: LEVOTHYROXINE SODIUM 50 MCG TABLET PO SCH (08:22)
[2017-01-29] MEDS: METOPROLOL TARTRATE 50 MG TABLET PO SCH ×2 (08:22→17:14)
[2017-01-29 08:33] LABS: CALCIUM, SERUM 8.7 mg/dL (8.5-10.1); CHLORIDE 102 mmol/L (98-107); CREATININE 6.4 mg/dL (0.6-1.3); GLUCOSE 124 mg/dL (74-106); MAGNESIUM 1.9 mg/dL (1.8-2.4); PHOSPHORUS 3.9 mg/dL (2.5-4.9); POTASSIUM 3.6 mmol/L (3.5-5.1); SODIUM SERUM 140 mmol/L (136-145); UREA NITROGEN, BLOOD 30 mg/dL (7-18)
[2017-01-29 08:42] LABS: FERRITIN 901 ng/mL (8-388)
[2017-01-29 09:00] LABS: CARBON DIOXIDE 24 mmol/L (21-32)
[2017-01-29 09:07] LABS: IRON, SERUM 32 ug/dl (50-175); TOTAL IRON BINDING CAPACITY 116 ug/dl (250-450)
[2017-01-29] MEDS: INSULIN REGULAR, HUMAN 100 UNIT/ML 3 ML VIAL SQ PRN (12:44)
[2017-01-29] MEDS ORDERED: EPOETIN ALFA (10,000 UNIT) 10,000 UNIT/ML VIAL SQ ONE (14:00)
--- NOTE | 2017-01-29 14:00 | NUR ---
TRANSITIONAL CARE MANAGER NOTES PATIENT SEEN AND EVALUATED BY DR. CRISTOBAL ORDERS NOTED AND CARRIED OUT.
[2017-01-29 16:00] VITALS: BP 117/59
--- NOTE | 2017-01-29 17:00 | NUR ---
RN NOTES PATIENT NOTED WITH 100.3 TEMP. RESPIRATION OF 18, BP:117/60, HR: 70 TYLENOL ADMINISTERED. MD NOTIFIED. WILL CONTINUE TO MONITOR.
--- NOTE | 2017-01-29 18:16 | NUR ---
POWER HOUSE CONTROL ROOM OPERATOR NOTES PATIENT IN BED RESTING NO SOB OR ACUTE DISTRESS NOTED. ALL DUE MEDICATIONS ADMINISTERED. ALL NEEDS MET. PERIPHERAL IV INTACT PATENT. BED IN LOW LOCKED POSITION. CALL LIGHT WITHIN REACH . WILL ENDORSE SHANNAN TO PM SHIFT.
--- NOTE | 2017-01-29 19:20 | NUR ---
MS / FLOW FLOOR ATTENDANT; RECEIVED PT'S REPORTS FROM THE DAY SHIFT RN . AT THIS TIME PT IN BED WITH DAY SHIFT SITTER . PT SLEEPING BUT AROUSABLE ABLE TO TALK AND HE SAID OK. HAS AV SHUNT ON LT ARM INTACT. HAS HL ON RFA INTACT. BREATHING NON LABORED WITH O2 2L NC . BOTH ARMS WITH BRUISES. BED ON LOWER POSITION AND LOCKED FOR SAFETY. NIGHT SITTER PRESENT. UPPER PART OF BED SIDE RAILS ARE FOR SAFETY. CONTINUE TO MONITOR . CALL LIGHT WITHIN REACH.
[2017-01-29 20:09] VITALS: BP 115/55
--- NOTE | 2017-01-29 20:45 | NUR ---
MS /THEATRICAL VARIETY AGENT; PT WOKE UP AND WANTS TO GO TO THE BATHROOM AND ASSISTED TO THE BATHROOM WITH SLIGHT UNSTEADY GAIT. PT HAD MODERATE SOFT BROWN BM , NO VOIDING. BACK TO BED ON COMFORTABLE POSITION. BACK TO SLEEP AFTER AWHILE. OFFERED APPLE JUICE TAKEN. NO C/O ABDOMINAL PAIN , NOR NAUSEA NOR VOMITING. BACK TO SLEEP. WILL CONTINUE TO MONITOR. SITTER PRESENT IN THE ROOM AT ALL TIMES.
--- NOTE | 2017-01-29 22:00 | NUR ---
MS/PHILOSOPHY INSTRUCTOR; PT SLEEPING AT THIS TIME. BREATHING NON LABORED AND EVEN. STILL ON O2 2L NC. WILL CONTINUE TO MONITOR.
--- NOTE | 2017-01-30 | NUR ---
MS/FINANCIAL PLANNING CONSULTANT; AWAKEN FOR BS 114 NO COVERAGE GIVEN. PT WANTS ANOTHER BLANKET. TEMP. RE CHECKED 98.6 ORALLY. ADDITIONAL BLANKET GIVEN. BACK TO SLEPT WITH O2 2L NC. WILL MONITOR.
[2017-01-30] MEDS: BLOOD SUGAR DIAGNOSTIC 1 EACH STRIP IN SCH ×3 (00:09→12:09)
--- NOTE | 2017-01-30 02:00 | NUR ---
MS/EMT/PARAMEDIC; PT SLEEPING AT THIS TIME. BREATHING NON LABORED AND EVEN. WITH O2 2L NC ON. CONTINUE TO MONITOR.
--- NOTE | 2017-01-30 02:35 | NUR ---
MS ASHLEY; NOTED PT WOKE UP AND TRYING TO GET OUT OF BED; I ASKED THE PT WHERE HE WANTS TO GO AND HE SAID I HAVE TO PREPARE MY FOOD. I TOLD THE PATIENT IT IS TOO EARLY. I RE ORIENTED THE PT THAT IT IS 0235 IN THE FLOOR COVERINGS SALESPERSON , YOU ARE IN THE HOSPITAL AND I TOLD HIM THE HOSPITAL IS THE ONE PREPARING THE FOOD. ENCOURAGED TO GO BACK TO SLEEP. WILL MONITOR FOR SAFETY.
[2017-01-30] MEDS: PIPERACILLIN /TAZOBACTAM 2.25 G in IV D5W 50 ML IV SCH ×2 (04:39→13:14)
--- NOTE | 2017-01-30 06:00 | NUR ---
MS /AUTOMATION DRIVER; BS 98 NO COVERAGE GIVEN. OFFERED JUICE TO DRINK BUT PT. REFUSED.
--- NOTE | 2017-01-30 06:28 | NUR ---
MS /MANAGER CENTER; MORNING BED BATH OFFERED BUT PT SAID LATER ON . AM LAB DRAWN. SLEPT FAIRLY LAST NIGHT . DENIES ANY ABDOMINAL PAIN NOR NAUSEA , NOR VOMITING. CONTINUE TO MONITOR. SITTER PRESENT AT ALL TIMES. WILL ENDORSE TO THE DAY SHIFT RN FOR CONTINUITY OF CARE. CALL LIGHT WITHIN REACH.
[2017-01-30 06:56] LABS: BASOPHILS % (AUTO) 0.5 % (0.0-2.0); EOSINOPHILS # (AUTO) 0.3 /CMM (0.0-0.7); EOSINOPHILS % (AUTO) 4.3 % (0.0-6.0); HEMATOCRIT 35 % (39-51); HEMOGLOBIN 11.3 g/dL (13.5-17.5); LYMPHOCYTES # (AUTO) 0.7 /CMM (0.8-4.8); LYMPHOCYTES % (AUTO) 11.6 % (20.0-44.0); MEAN CORPUSCULAR HEMOGLOBIN 27 PG (26.0-33.0); MEAN CORPUSCULAR HGB CONC 32 g/dl (31.0-36.0); MEAN CORPUSCULAR VOLUME 83 fL (80-96); MONOCYTES # (AUTO) 0.8 /CMM (0.1-1.30); NEUTROPHILS # (AUTO) 4.5 /CMM (1.8-8.9); NEUTROPHILS % (AUTO) 71.6 % (43.0-81.0); PLATELET COUNT (AUTO) 152 /CMM (150-450); RDW COEFFICIENT OF VARIATION 18.3 (11.5-15.0); RED BLOOD CELL COUNT(AUTO) 4.23 MIL/uL (4.5-6.0); WHITE BLOOD COUNT (AUTO) 6.3 K/uL (4.3-11.0)
--- NOTE | 2017-01-30 07:15 | NUR ---
MS RN NOTES RECEIVED PATIENT IN BED, A/O X3, FORGETFUL. ON OXYGEN AT 2LPM VIA NC, NO SOB. APPEARS COMFORTABLE IN BED, CALL LIGHT WITHIN REACH. 1:1 SITTER AT THE BEDSIDE.
[2017-01-30 07:17] LABS: CARBON DIOXIDE 26 mmol/L (21-32); CHLORIDE 101 mmol/L (98-107); CREATININE 6.6 mg/dL (0.6-1.3); GLUCOSE 100 mg/dL (74-106); MAGNESIUM 1.9 mg/dL (1.8-2.4); PHOSPHORUS 4.8 mg/dL (2.5-4.9); POTASSIUM 3.2 mmol/L (3.5-5.1); SODIUM SERUM 140 mmol/L (136-145); UREA NITROGEN, BLOOD 26 mg/dL (7-18)
[2017-01-30] MEDS ORDERED: LEVOTHYROXINE SODIUM 50 MCG TABLET PO SCH (07:30)
[2017-01-30 08:00] VITALS: BP 138/69
[2017-01-30] MEDS: PANTOPRAZOLE 40 MG VIAL IV SCH (09:17)
[2017-01-30] MEDS: METOPROLOL TARTRATE 50 MG TABLET PO SCH (09:18)
[2017-01-30 09:19] VITALS: BP 138/69
[2017-01-30] MEDS: NIFEdipine XL 60 MG TAB PO SCH (09:19)
--- NOTE | 2017-01-30 11:00 | NUR ---
ELEVATED PROCALCITONIN 2.47 AND POTASSIUM LEVEL 3.[address] CRISTOBAL/NEPHRO TODAY, LAB RESULT INFORMED.
--- NOTE | 2017-01-30 11:50 | NUR ---
PATIENT TO BE DISCHARGED HOME ORDERED.
[2017-01-30] MEDS: INSULIN REGULAR, HUMAN 100 UNIT/ML 3 ML VIAL SQ PRN (12:09)
--- NOTE | 2017-01-30 15:00 | NUR ---
MS RN DISCHARGED PATIENT HAS BEEN CLEARED FOR DISCHARGE HOME BY . V/S REMAIN STABLE. LFA HD CATH, NO BLEEDING. DISCHARGE INSTRUCTION AND PRESCRIPTION GIVEN TO PATIENT AND DEVON/DAUGHTER, VERBALIZED UNDERSTANDING. IV IN RFA REMOVED, GAUZED APPLIED, NO BLEEDING NOTED. PATIENT LEFT HOSP IN STABLE CONDITION VIA PRIVATE CAR ACCOMPANIED BY HIS DAUGHTER/DEVON. BELONGINGS CHECKED PRIOR DC.
== END 2017-01-30 15:00 | disposition home or self-care (01) | DRG 871 ==
LOC: ER 03:19 → MED 05:37
PROVIDERS: ADMIT Internal Medicine; ATTEND Internal Medicine
PROC: 5A1D70Z Performance of Urinary Filtration, Intermittent, Less than 6 Hours Per Day (ICD-10-PCS; principal; 2017-01-25)
DX: A41.9 Sepsis, unspecified organism (principal); K85.90 Acute pancreatitis without necrosis or infection, unspecified; I13.2 Hypertensive heart and chronic kidney disease with heart failure and with stage 5 chronic kidney disease, or end stage renal disease; J90 Pleural effusion, not elsewhere classified; J15.9 Unspecified bacterial pneumonia; I48.0 Paroxysmal atrial fibrillation; E11.22 Type 2 diabetes mellitus with diabetic chronic kidney disease; K86.89 Other specified diseases of pancreas; N18.6 End stage renal disease; K92.2 Gastrointestinal hemorrhage, unspecified; I50.32 Chronic diastolic (congestive) heart failure; Z68.1 Body mass index [BMI] 19.9 or less, adult; Z99.2 Dependence on renal dialysis; D64.9 Anemia, unspecified; E03.9 Hypothyroidism, unspecified; E78.5 Hyperlipidemia, unspecified; I25.10 Atherosclerotic heart disease of native coronary artery without angina pectoris; Z79.84 Long term (current) use of oral hypoglycemic drugs; Z85.46 Personal history of malignant neoplasm of prostate; Z87.891 Personal history of nicotine dependence; Z98.61 Coronary angioplasty status; K76.89 Other specified diseases of liver; R63.6 Underweight
CPT/HCPCS: 36415; 71010-TC; 74178; 80048-TC; 80053-TC; 80061-TC; 80076-TC; 82728-TC; 82962-TC; 83540-TC; 83605-TC; 83690-TC; 83735-TC; 84100-TC; 84439-TC; 84443-TC; 85025-TC; 85027-TC; 85610-TC; 85730-TC; 86301; 87040-TC; 87081-TC; 90935-TC; A4606; C9113; J0885; J1160; J1170; J1815; J2270; J2405; J2543; J7042; J7050; J7060; Q9967; Z7610